=== PATIENT | female | born 1940 | race Caucasian/White ===

== ENCOUNTER → 2017-02-09 | Outpatient (CLI) | payer MEDICARE, BC ==
--- NOTE | 2017-02-09 09:22 | FL ---
EXAMINATION TYPE: FL barium swallow DATE OF EXAM: 02/09/2017 CLINICAL HISTORY: Dysphagia for one month with several episodes of vomiting recently. Patient feels f ood getting caught in upper thorax. TECHNIQUE: A double contrast esophagram is performed utilizing air and barium. A total of 5 seconds of fluoroscopic time was utilized during procedure. 26 spot images are saved to PACS station during procedure. COMPARISON: None FINDINGS: The esophagus shows satisfactory motility and emptying into the stomach. Some expected dimi nished motility on prone drinking is noted. No evidence of hiatal hernia noted. No suspicious intralu mariella mass or stricture with particular attention to the proximal esophagus at area of patient's conc pushpa. No significant gastroesophageal reflux was seen during real time performance of this study. IMPRESSION: No significant abnormality is seen to account for patient's symptoms.
== END | disposition home or self-care (01) ==
LOC: RADFLWHC 08:38
PROVIDERS: ATTEND Otolaryngology
DX: R13.10 Dysphagia, unspecified (principal)
CPT/HCPCS: 74220

== ENCOUNTER 2017-09-12 10:42 | Inpatient (IN) | payer MEDICARE, BC ==
--- NOTE | 2017-09-12 11:12 | ED ---
General Adult HPI - General Chief complaint: Syncope Stated complaint: SYNCOPE Time Seen by Provider: 09/12/17 10:50 Source: patient, RN notes reviewed Mode of arrival: wheelchair Limitations: no limitations - History of Present Illness Initial comments: This is a 77-year-old female who presents to the emergency department complaining of having had a syncopal episode. Patient states she had one on Tuesday as well. Patient states she has a peritoneal dialysis patient. Patient states she felt a little lightheaded and passed out both occasions. Patient denies any chest pain palpitations difficulty breathing shortness breath prior to the event. Patient now complains of a little left-sided chest pain. Patient states she also has a mild headache. Patient denies any nausea vomiting diarrhea. Patient denies anydisturbance or visual symptoms. Patient denies any recent fever chills or cough. - Related Data Home Medications Medication Instructions Recorded Confirmed Febuxostat [Uloric] 20 mg PO DAILY 01/20/16 09/12/17 Ferrous Sulfate [Iron (65 MG 325 mg PO DAILY 01/20/16 09/12/17 Elemental)] Gabapentin [Neurontin] 100 mg PO HS 01/20/16 09/12/17 Potassium Chloride [K-Tab ER] 10 meq PO BID 01/20/16 09/12/17 Torsemide [Demadex] 40 mg PO DAILY 01/20/16 09/12/17 Aspirin 325 mg PO DAILY 04/03/16 09/12/17 Atorvastatin Calcium [Lipitor] 10 mg PO DAILY 09/12/17 09/12/17 Calcitriol 0.5 mcg PO MO 09/12/17 09/12/17 Cinacalcet [Sensipar] 30 mg PO MOWEFR 09/12/17 09/12/17 Ipratropium-Albuterol Nebulize 3 ml INHALATION RT-TID 09/12/17 09/12/17 [Duoneb 0.5 mg-3 mg/3 ml Soln] Metoprolol Tartrate [Lopressor] 12.5 mg PO DAILY 09/12/17 09/12/17 Midodrine HCl [ProAmatine] 10 mg PO TID 09/12/17 09/12/17 Sevelamer [Renvela] 800 mg PO DAILY 09/12/17 09/12/17 Allergies Allergy/AdvReac Type Severity Reaction Status Date / Time gluten Allergy celiac Verified 09/12/17 11:43 disease wheat Allergy CELIAC Verified 09/12/17 11:43 DISEASE Review of Systems ROS Statement: Those systems with pertinent positive or pertinent negative responses have been documented in the HPI. ROS Other: All systems not noted in ROS Statement are negative. Past Medical History Past Medical History: Dialysis, Hyperlipidemia, Hypertension, Renal Disease, Syncope Additional Past Medical History / Comment(s): ONE KIDNEY ONLY FUNCTIONING AT 11 % NOT SURE WHICH ONE. peritoneal dialysis. CELIAC DISEASE History of Any Multi-Drug Resistant Organisms: None Reported Past Surgical History: Appendectomy, Cholecystectomy, Heart Catheterization, Hysterectomy, Joint Replacement, Orthopedic Surgery Additional Past Surgical History / Comment(s): NEUROMA BILAT FOOT, COLONOSCOPY, D & C. LT SHOULDER REPLACEMENT, BILAT TKA, BILAT PJ, LT PJ X 2, 04-02-16 HEART CATH W/STENT TO LAD, PT STATED HAS PNEVACCINE <5 YEARS AGO NOT SURE OF THE DATE Past Anesthesia/Blood Transfusion Reactions: No Reported Reaction Past Psychological History: No Psychological Hx Reported Smoking Status: Never smoker Past Alcohol Use History: None Reported Past Drug Use History: None Reported - Past Family History Mother Family Medical History: Myocardial Infarction ([place]) Additional Family Medical History / Comment(s): LIVED TO BE AGE 93 Father Additional Family Medical History / Comment(s): AT AGE 58 FROM CEREBRAL HEMORRAGE General Exam - General Exam Comments Initial Comments: GENERAL: Patient is well-developed and well-nourished. Patient is nontoxic and well- hydrated and is in mild distress. ENT: Neck is soft and supple. No significant lymphadenopathy is noted. Oropharynx is clear. Moist mucous membranes. Neck has full range of motion without eliciting any pain. EYES: The sclera were anicteric and conjunctiva were pink and moist. Extraocular movements were intact and pupils were equal round and reactive to light. Eyelids were unremarkable. PULMONARY: Unlabored respirations. Good breath sounds bilaterally. No audible rales rhonchi or wheezing was noted. CARDIOVASCULAR: There is a regular rate and rhythm without any murmurs gallops or rubs. ABDOMEN: Soft and nontender with normal bowel sounds. No palpable organomegaly was noted. There is no palpable pulsatile mass. SKIN: Skin is clear with no lesions or rashes and otherwise unremarkable. NEUROLOGIC: Patient is alert and oriented x3. Cranial nerves II through XII are grossly intact. Motor and sensory are also intact. Normal speech, volume and content. Symmetrical smile. MUSCULOSKELETAL: Normal extremities with adequate strength and full range of motion. No lower extremity swelling or edema. No calf tenderness. LYMPHATICS: No significant lymphadenopathy is noted PSYCHIATRIC: Normal psychiatric evaluation. Normal interpersonal interactions appears functionally intact in deals appropriately with others. No signs of depression. No signs of anxiety. Limitations: no limitations Course Vital Signs 09/12/17 09/12/17 10:53 12:33 Temperature 97.5 F L Pulse Rate 77 63 Respiratory 18 18 Rate Blood Pressure 114/58 132/64 O2 Sat by Pulse 98 100 Oximetry Medical Decision Making - Medical Decision Making EKG shows sinus rhythm at 61 bpm OH interval is 218 QRS is 80 QT interval 442 QTC is 444. Patient's EKG shows no ST segment elevation or depression or T wave abnormalities are noted. Patient's CT of the brain shows no acute abnormality. Chest x-ray shows no acute abnormality. I went back into reevaluate the patient patient stated that she feels at her baseline currently. - Lab Data Result diagrams: 09/12/17 11:19 09/12/17 11:19 Lab Results 09/12/17 09/12/17 09/12/17 Range/Units 11:19 11:19 11:19 WBC 10.3 (3.8-10.6) k/uL RBC 3.55 L (3.80-5.40) m/uL Hgb 11.0 L (11.4-16.0) gm/dL Hct 31.6 L (34.0-46.0) % MCV 88.9 (80.0-100.0) fL MCH 31.0 (25.0-35.0) pg MCHC 34.9 (31.0-37.0) g/dL RDW 14.5 (11.5-15.5) % Plt Count 283 (150-450) k/uL Neutrophils % 83 % Lymphocytes % 9 % Monocytes % 5 % Eosinophils % 3 % Basophils % 1 % Neutrophils # 8.5 H (1.3-7.7) k/uL Lymphocytes # 0.9 L (1.0-4.8) k/uL Monocytes # 0.5 (0-1.0) k/uL Eosinophils # 0.3 (0-0.7) k/uL Basophils # 0.1 (0-0.2) k/uL PT (9.0-12.0) sec INR (<1.2) APTT (22.0-30.0) sec Sodium 132 L (137-145) mmol/L Potassium 4.2 (3.5-5.1) mmol/L Chloride 91 L (98-107) mmol/L Carbon Dioxide 25 (22-30) mmol/L Anion Gap 16 mmol/L BUN 28 H (7-17) mg/dL Creatinine 5.71 H* (0.52-1.04) mg/dL Est GFR (CKD-EPI)AfAm 8 (>60 ml/min/1.73 sqM) Est GFR (CKD-EPI)NonAf 7 (>60 ml/min/1.73 sqM) Glucose 129 H (74-99) mg/dL Calcium 9.1 (8.4-10.2) mg/dL Magnesium 1.6 (1.6-2.3) mg/dL Total Bilirubin 0.4 (0.2-1.3) mg/dL AST 32 (14-36) U/L ALT 34 (9-52) U/L Alkaline Phosphatase 114 (38-126) U/L Total Creatine Kinase 64 (30-135) U/L CK-MB (CK-2) 0.8 (0.0-2.4) ng/mL CK-MB (CK-2) Rel Index 1.3 Troponin I <0.012 (0.000-0.034) ng/mL Total Protein 6.7 (6.3-8.2) g/dL Albumin 4.0 (3.5-5.0) g/dL 09/12/17 Range/Units 12:17 WBC (3.8-10.6) k/uL RBC (3.80-5.40) m/uL Hgb (11.4-16.0) gm/dL Hct (34.0-46.0) % MCV (80.0-100.0) fL MCH (25.0-35.0) pg MCHC (31.0-37.0) g/dL RDW (11.5-15.5) % Plt Count (150-450) k/uL Neutrophils % % Lymphocytes % % Monocytes % % Eosinophils % % Basophils % % Neutrophils # (1.3-7.7) k/uL Lymphocytes # (1.0-4.8) k/uL Monocytes # (0-1.0) k/uL Eosinophils # (0-0.7) k/uL Basophils # (0-0.2) k/uL PT 9.7 (9.0-12.0) sec INR 1.0 (<1.2) APTT 19.5 L (22.0-30.0) sec Sodium (137-145) mmol/L Potassium (3.5-5.1) mmol/L Chloride (98-107) mmol/L Carbon Dioxide (22-30) mmol/L Anion Gap mmol/L BUN (7-17) mg/dL Creatinine (0.52-1.04) mg/dL Est GFR (CKD-EPI)AfAm (>60 ml/min/1.73 sqM) Est GFR (CKD-EPI)NonAf (>60 ml/min/1.73 sqM) Glucose (74-99) mg/dL Calcium (8.4-10.2) mg/dL Magnesium (1.6-2.3) mg/dL Total Bilirubin (0.2-1.3) mg/dL AST (14-36) U/L ALT (9-52) U/L Alkaline Phosphatase (38-126) U/L Total Creatine Kinase (30-135) U/L CK-MB (CK-2) (0.0-2.4) ng/mL CK-MB (CK-2) Rel Index Troponin I (0.000-0.034) ng/mL Total Protein (6.3-8.2) g/dL Albumin (3.5-5.0) g/dL Disposition Clinical Impression: Syncope Disposition: ADMITTED IP TO THIS HOSP Referrals: Doni Irizarry MD [Primary Care Provider] - 1-2 days Time of Disposition: 13:08
[2017-09-12] MEDS ORDERED: NITROGLYCERIN OINT 1 INCH/GM PACKET TOPICAL STA (11:29)
[2017-09-12] MEDS ORDERED: ASPIRIN 81 MG PO STA (11:29)
[2017-09-12 11:31] LABS: Basophils # (A) 0.1 k/uL (0-0.2); Basophils % (A) 1 %; Eosinophils # (A) 0.3 k/uL (0-0.7); Eosinophils % (A) 3 %; HCT 31.6 % (34.0-46.0); Lymphocytes # (A) 0.9 k/uL (1.0-4.8); Lymphocytes % (A) 9 %; MCHC 34.9 g/dL (31.0-37.0); MCV 88.9 fL (80.0-100.0); Mean Platelet Volume 7.4; Monocytes # (A) 0.5 k/uL (0-1.0); Monocytes % (A) 5 %; Neutrophils # (A) 8.5 k/uL (1.3-7.7); Neutrophils % (A) 83 %; Platelet Count 283 k/uL (150-450); RBC 3.55 m/uL (3.80-5.40); RDW 14.5 % (11.5-15.5); WBC 10.3 k/uL (3.8-10.6)
[2017-09-12 11:41] LABS: Calcium 9.1 mg/dL (8.4-10.2); Magnesium 1.6 mg/dL (1.6-2.3); Potassium 4.2 mmol/L (3.5-5.1); Total Bilirubin 0.4 mg/dL (0.2-1.3); Total Protein 6.7 g/dL (6.3-8.2)
--- NOTE | 2017-09-12 11:46 | XR ---
EXAMINATION TYPE: XR chest 2V DATE OF EXAM: 09/12/2017 COMPARISON: NONE HISTORY: Chest pain and syncope. TECHNIQUE: Frontal and lateral views of the chest are obtained. FINDINGS: There is lateral left basilar opacity on frontal view less well seen on lateral view. Righ t lung is clear. The cardiac silhouette size is upper limits of normal. Metallic anchor left humeral head is present. There is high riding humeral head suggesting chronic rotator cuff tear. AC joint sep aration is present. IMPRESSION: Possible developing lateral left basilar atelectasis and/or infiltrate.
--- NOTE | 2017-09-12 11:57 | CT ---
EXAMINATION TYPE: CT brain wo con DATE OF EXAM: 09/12/2017 COMPARISON: NONE HISTORY: Dizziness. CT DLP: 1121 mGycm Automated exposure control for dose reduction was used. TECHNIQUE: CT scan of the head is performed without contrast. FINDINGS: Incidental note is made of a cavum veli interpositi. There is no acute intracranial hemorr russell or midline shift identified. There is diffuse ventricular and sulcal prominence consistent with diffuse age-related cerebral atrophy. No suspicious extra-axial fluid collection. There is low-attenu ation in the periventricular white matter consistent with chronic small vessel ischemic change. The globes are intact and the visualized sinuses are clear. IMPRESSION: 1. No acute intracranial process. 2. Diffuse age-related cerebral atrophy and chronic small vessel ischemic change, likely on the basis of microangiopathy.
[2017-09-12 12:00] LABS: Creatine Kinase 64 U/L (30-135)
[2017-09-12 12:11] LABS: Creatine Kinase MB 0.8 ng/mL (0.0-2.4); Troponin I <0.012 ng/mL (0.000-0.034)
[2017-09-12 12:41] LABS: Prothrombin Time 9.7 sec (9.0-12.0)
[2017-09-12 12:47] LABS: Partial Thromboplastin Time 19.5 sec (22.0-30.0)
[2017-09-12] MEDS ORDERED: NITROGLYCERIN SL TABS 0.4 MG TAB SUBLINGUAL PRN (13:16)
--- NOTE | 2017-09-12 15:22 | P.HPIM ---
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 and while walking using her walker she didn't feel good and needed to sit down and then passed out for about 5 minutes witnessed by her doctor at bedside which she says she didn't have any seizure-like activity, and she woke up after 5 minutes immediately with no residual confusion , patient denies prodromal symptoms for me, no chest pain no sweating no lightheadedness Patient had 2 episodes in this week and she has another 3 episodes about 4 months ago but she hasn't been evaluated for the Patient had episodic diarrhea yesterday, but thus related to her celiac disease as per patient and family Review of Systems 14 point systemic review were negative excess was mentioned in HPI Past Medical History Past Medical History: Coronary Artery Disease (CAD), Dialysis, Hyperlipidemia, Hypertension, Renal Disease, Syncope Additional Past Medical History / Comment(s): ONE KIDNEY ONLY FUNCTIONING AT 11 % NOT SURE WHICH ONE/peritoneal dialysis one manual around 3-5pm and one cycle at night, anemia, celiac dx, L ear canal small-slightly [place], wears hearing aide in R ear. History of Any Multi-Drug Resistant Organisms: None Reported Past Surgical History: Appendectomy, Cholecystectomy, Heart Catheterization With Stent, Hysterectomy, Joint Replacement, Orthopedic Surgery Additional Past Surgical History / Comment(s): 04/02/16 PCI with stent, bilateral feet neuromas removed, L total shoulder, bilateral total knees, bilateral total hips with R side done twice, L myringotomy/tube, D&C, colonoscopy. Past Anesthesia/Blood Transfusion Reactions: Postoperative Nausea & Vomiting ( PONV) Additional Past Anesthesia/Blood Transfusion Reaction / Comment(s): PONV once with a hip surgery. Pt has received blood in the past and once in 1977 she had a transfusion reaction with a fever and was packed in ice. Date of Last Stent Placement:: 03/27/16 Smoking Status: Never smoker - Past Family History Mother Family Medical History: Myocardial Infarction ([place]) Additional Family Medical History / Comment(s): LIVED TO BE AGE 93 Father Family Medical History: CVA/TIA Additional Family Medical History / Comment(s): AT AGE 52 FROM CEREBRAL HEMORRhAGE Medications and Allergies Home Medications Medication Instructions Recorded Confirmed Type Febuxostat [Uloric] 20 mg PO DAILY 01/20/16 09/12/17 History Ferrous Sulfate [Iron (65 MG 325 mg PO DAILY 01/20/16 09/12/17 History Elemental)] Gabapentin [Neurontin] 100 mg PO HS 01/20/16 09/12/17 History Potassium Chloride [K-Tab ER] 10 meq PO BID 01/20/16 09/12/17 History Torsemide [Demadex] 40 mg PO DAILY 01/20/16 09/12/17 History Aspirin 325 mg PO DAILY 04/03/16 09/12/17 History Atorvastatin Calcium [Lipitor] 10 mg PO DAILY 09/12/17 09/12/17 History Calcitriol 0.5 mcg PO MO 09/12/17 09/12/17 History Cinacalcet [Sensipar] 30 mg PO MOWEFR 09/12/17 09/12/17 History Ipratropium-Albuterol Nebulize 3 ml INHALATION RT-TID 09/12/17 09/12/17 History [Duoneb 0.5 mg-3 mg/3 ml Soln] Metoprolol Tartrate [Lopressor] 12.5 mg PO DAILY 09/12/17 09/12/17 History Midodrine HCl [ProAmatine] 10 mg PO TID 09/12/17 09/12/17 History Sevelamer [Renvela] 800 mg PO DAILY 09/12/17 09/12/17 History Allergies Allergy/AdvReac Type Severity Reaction Status Date / Time gluten Allergy celiac Verified 09/12/17 11:43 disease wheat Allergy CELIAC Verified 09/12/17 11:43 DISEASE Physical Exam Vitals: Vital Signs Temp Pulse Resp BP Pulse Ox 09/12/17 14:21 61 18 192/88 100 09/12/17 12:33 63 18 132/64 100 09/12/17 10:53 97.5 F L 77 18 114/58 98 Intake and Output 09/12/17 09/12/17 09/12/17 06:59 14:59 22:59 Other: Weight 77.564 kg Constitutional: No acute distress, conversant, pleasant Eyes: Anicteric sclerae, moist conjunctiva, no lid-lag PERRLA ENMT: NC/AT Oropharynx clear, no erythema, exudates Neck: Supple, FROM, no masses, or JVD No carotid bruits No thyromegaly Lungs: Clear to auscultation Clear to percussion Normal respiratory effort, no accessory muscle use Cardiovascular: Heart regular in rate and rhythm, No murmurs, gallops, or rubs No peripheral edema Abdominal: Soft Nontender, no guarding, rebound or rigidity Abdomen moving with respiration Normoactive bowel sounds No hepatomegaly, No splenomegaly No palpable mass No abdominal wall hernia noted Skin: Normal temperature, tone, texture, turgor No induration No subcutaneous nodules No rash, lesions No ulcers Extremities: No digital cyanosis No clubbing Pedal pulses intact and symmetrical Radial pulses intact and symmetrical Normal gait and station No calf tenderness Psychiatric: Alert and oriented to person, place and time Appropriate affect Intact judgement Neuro: Muscles Strength 5/5 in all 4 extremities Sensation to light touch grossly present throughout Cranial nerves II-XII grossly intact No focal sensory deficits Results CBC & Chem 7: 09/12/17 11:19 09/12/17 11:19 Labs: Abnormal Lab Results - Last 24 Hours (Table) 09/12/17 09/12/17 09/12/17 Range/Units 11:19 11:19 12:17 RBC 3.55 L (3.80-5.40) m/uL Hgb 11.0 L (11.4-16.0) gm/dL Hct 31.6 L (34.0-46.0) % Neutrophils # 8.5 H (1.3-7.7) k/uL Lymphocytes # 0.9 L (1.0-4.8) k/uL APTT 19.5 L (22.0-30.0) sec Sodium 132 L (137-145) mmol/L Chloride 91 L (98-107) mmol/L BUN 28 H (7-17) mg/dL Creatinine 5.71 H* (0.52-1.04) mg/dL Glucose 129 H (74-99) mg/dL Thrombosis Risk Factor Assmnt - Choose All That Apply Any of the Below Risk Factors Present?: Yes Each Factor Represents 1 point: Obesity (BMI >25) Other Risk Factors: Yes Each Risk Factor Represents 3 Points: Age 75 years or older Other congenital or acquired thrombophilia - If yes, enter type in comment: No Thrombosis Risk Factor Assessment Total Risk Factor Score: 4 Thrombosis Risk Factor Assessment Level: Moderate Risk Assessment and Plan Assessment: Syncope End-stage renal disease, on dialysis CAD Hypertension Hyperlipidemia celiac disease Plan: This is a pleasant lady 77 years old end-stage renal dialysis comes with recurrent syncopal episodes, withprodromal symptoms We will do serial troponins, admitted to telemetry, echocardiogram and ask for Cardiologic evaluation in view of her history of cardiac disease Ask for PT evaluation Prognosis is guarded given her various comorbidity and advanced age
[2017-09-12] MEDS: hydrALAZINE HCL 25 MG TAB PO SCH ×2 (17:09→20:36)
[2017-09-12 17:38] LABS: Creatine Kinase 61 U/L (30-135)
[2017-09-12 17:51] LABS: Creatine Kinase MB 0.6 ng/mL (0.0-2.4); Troponin I <0.012 ng/mL (0.000-0.034)
[2017-09-12] MEDS ORDERED: CALCITRIOL 0.25 MCG CAP PO SCH (18:45)
[2017-09-12] MEDS: CINACALCET 30 MG TAB PO SCH (20:35)
[2017-09-12] MEDS: GABAPENTIN 100 MG CAP PO SCH (20:36)
[2017-09-12] MEDS ORDERED: DIALYSIS (PERIT 1.5%) 2,000 ML 30 G/2,000 ML BAG INTRAPERIT SCH (21:00)
[2017-09-12] MEDS: IPRATROPIUM-ALBUTEROL 3 ML NEB INHALATION SCH (23:41)
[2017-09-13 00:08] LABS: Cholesterol 161 mg/dL (<200); HDL Cholesterol 33 mg/dL (40-60); Triglycerides 473 mg/dL (<150)
[2017-09-13 00:17] LABS: Creatine Kinase 61 U/L (30-135)
[2017-09-13 00:30] LABS: Creatine Kinase MB 0.5 ng/mL (0.0-2.4); Troponin I <0.012 ng/mL (0.000-0.034)
[2017-09-13] MEDS ORDERED: DIALYSIS (PERIT 1.5%) 2,000 ML 30 G/2,000 ML BAG INTRAPERIT SCH ×2 (03:00)
[2017-09-13] MEDS: MIDODRINE 5 MG TAB PO SCH ×3 (06:44→18:09)
[2017-09-13] MEDS: IPRATROPIUM-ALBUTEROL 3 ML NEB INHALATION SCH ×3 (07:59→19:37)
[2017-09-13] MEDS ORDERED: ASPIRIN 325 MG TAB PO SCH (09:00)
[2017-09-13] MEDS: DIALYSIS (PERIT 2.5%) 2,000 ML 50 G/2,000 ML BAG INTRAPERIT SCH ×2 (09:33→21:25)
[2017-09-13] MEDS: hydrALAZINE HCL 25 MG TAB PO SCH (09:41)
[2017-09-13] MEDS: TORSEMIDE 20 MG TAB PO SCH (09:42)
[2017-09-13] MEDS: METOPROLOL TARTRATE 12.5 MG TAB PO SCH (09:42)
[2017-09-13] MEDS: FERROUS SULFATE 325 MG TAB PO SCH (09:42)
[2017-09-13] MEDS: ASPIRIN 325 MG TAB PO SCH (09:42)
[2017-09-13] MEDS: ATORVASTATIN 10 MG TAB PO SCH (09:42)
[2017-09-13] MEDS: ALLOPURINOL 100 MG TAB PO SCH (09:42)
[2017-09-13] MEDS: SEVELAMER 800 MG TAB PO SCH (09:44)
--- NOTE | 2017-09-13 11:14 | ECHOF ---
Referral Reason:syncope MEASUREMENTS -------- HEIGHT: 170.2 cm WEIGHT: 77.6 kg BP: 192/88 IVSd: 1.3 cm (0.6 - 1.1) LVIDd: 3.6 cm (3.9 - 5.3) LVPWd: 1.6 cm (0.6 - 1.1) IVSs: 2.0 cm LVIDs: 1.7 cm LVPWs: 1.9 cm Ao Diam: 3.6 cm (2.0 - 3.7) AV Cusp: 2.2 cm (1.5 - 2.6) LA Diam: 2.8 cm (2.7 - 3.8) MV EXCURSION: 13.536 mm (> 18.000) MV EF SLOPE: 32 mm/s (70 - 150) EPSS: 0.5 cm MV E Huey: 0.67 m/s MV DecT: 232 ms MV A Huey: 1.01 m/s MV E/A Ratio: 0.66 AR PHT: 643 ms RAP: 5.00 mmHg RVSP: 15.95 mmHg FINDINGS -------- Sinus rhythm. This was a technically good study. The left ventricular size is normal. There is moderate concentric left ventricular hypertrophy. O verall left ventricular systolic function is normal with, an EF between 55 - 60 %. The right ventricle is normal in size and function. The left atrium is normal in size. The right atrium is normal in size. Aortic valve is trileaflet and is mildly thickened. The mitral valve leaflets are mildly thickened. Mild mitral regurgitation is present. Mild tricuspid regurgitation present. The right ventricular systolic pressure, as measured by Doppl er, is 15.95mmHg. Pulmonic valve appears structurally normal. The aortic root size is normal. The pericardium is normal. CONCLUSIONS -------- 1. Sinus rhythm. 2. This was a technically good study. 3. The left ventricular size is normal. 4. There is moderate concentric left ventricular hypertrophy. 5. Overall left ventricular systolic function is normal with, an EF between 55 - 60 %. 6. The right ventricle is normal in size and function. 7. The left atrium is normal in size. 8. The right atrium is normal in size. 9. Aortic valve is trileaflet and is mildly thickened. 10. The mitral valve leaflets are mildly thickened. 11. Mild mitral regurgitation is present. 12. Mild tricuspid regurgitation present. 13. The right ventricular systolic pressure, as measured by Doppler, is 15.95mmHg. 14. Pulmonic valve appears structurally normal. 15. The aortic root size is normal. 16. The pericardium is normal. QUALITATIVE EXECUTIVE RESEARCHER: Rosalina Collado RDCS
--- NOTE | 2017-09-13 13:40 | P.PN ---
Subjective Patient is seen and examined by me at bedside Known new complaints Patient is still complains from some dizziness especially when she gets out of the patient No chest pain, dyspnea, no change in urine or bowel habits, no fever Objective - Vital Signs Vital signs: Vital Signs Temp 97.8 F 09/13/17 08:00 Pulse 88 09/13/17 08:10 Resp 18 09/13/17 08:00 BP 126/66 09/13/17 08:00 Pulse Ox 96 09/13/17 08:00 Intake & Output 09/12/17 09/13/17 09/13/17 18:59 06:59 18:59 Intake Total 240 Balance 240 Weight 77.564 kg 78.5 kg Intake: Oral 240 Other: Voiding Method Toilet Toilet # Voids 0 - Exam Constitutional: No acute distress, conversant, pleasant Eyes: Anicteric sclerae, moist conjunctiva, no lid-lag PERRLA ENMT: NC/AT Oropharynx clear, no erythema, exudates Neck: Supple, FROM, no masses, or JVD No carotid bruits No thyromegaly Lungs: Clear to auscultation Clear to percussion Normal respiratory effort, no accessory muscle use Cardiovascular: Heart regular in rate and rhythm, No murmurs, gallops, or rubs No peripheral edema Abdominal: Soft Nontender, no guarding, rebound or rigidity Abdomen moving with respiration Normoactive bowel sounds No hepatomegaly, No splenomegaly No palpable mass No abdominal wall hernia noted Skin: Normal temperature, tone, texture, turgor No induration No subcutaneous nodules No rash, lesions No ulcers Extremities: No digital cyanosis No clubbing Pedal pulses intact and symmetrical Radial pulses intact and symmetrical Normal gait and station No calf tenderness Psychiatric: Alert and oriented to person, place and time Appropriate affect Intact judgement Neuro: Muscles Strength 5/5 in all 4 extremities Sensation to light touch grossly present throughout Cranial nerves II-XII grossly intact No focal sensory deficits - Labs CBC & Chem 7: 09/12/17 11:19 09/12/17 11:19 Labs: Abnormal Lab Results - Last 24 Hours (Table) 09/12/17 Range/Units 23:45 Triglycerides 473 H (<150) mg/dL HDL Cholesterol 33 L (40-60) mg/dL Assessment and Plan Assessment: Syncope End-stage renal disease, on dialysis CAD Hypertension Hyperlipidemia celiac disease Plan: This is a pleasant lady 77 years old end-stage renal dialysis comes with recurrent syncopal episodes, without prodromal symptoms We will do serial troponins, admitted to telemetry, echocardiogram and ask for Cardiologic evaluation in view of her history of cardiac disease CT head is negative CKD, advanced stage, pipe assembly worker consult Ask for PT evaluation Prognosis is guarded given her various comorbidity and advanced age
[2017-09-13] MEDS: DIALYSIS (PERIT 1.5%) 2,000 ML 30 G/2,000 ML BAG INTRAPERIT SCH (15:56)
--- NOTE | 2017-09-13 16:30 | CONS ---
CONSULTATION REASON FOR CONSULT: End-stage renal disease. HISTORY OF PRESENT ILLNESS: The patient is a 77-year-old female with end-stage renal disease, on peritoneal dialysis. She was admitted to the hospital with history of syncope. According to her daughter, she has passed out about 3 times at home. The patient was coming to the dialysis unit yesterday and she passed out while trying to get into the car. Her blood pressure was not low when patient was seen at the dialysis unit, but she looks weak and was therefore advised to go to the hospital. The patient denies any chest pain or palpitations. Her daughter has checked her blood pressure when she passed out at home and there was no documentation of hypotension. PAST MEDICAL HISTORY: End-stage renal disease, CKD mineral bone disorder, hyperlipidemia, hypertension, coronary artery disease, hearing loss. PAST SURGICAL HISTORY: Appendectomy, cholecystectomy, cardiac catheterization, coronary stent, hysterectomy, cataract surgery, PD catheter placement, colonoscopy, D and C, ear surgery, bilateral hip arthroplasty, right leg being done twice. MEDICATIONS: Medications at home prior to admission included: Iron, Uloric, Neurontin, potassium, Demadex, aspirin, Lipitor, Sensipar, Midodrine, Metoprolol. ALLERGIES: GLUTEN. SOCIAL HISTORY: Negative for smoking and drugs abuse or alcohol abuse. PHYSICAL EXAMINATION: Patient is currently comfortable, awake, alert, oriented x3. She is not in any acute distress. Blood pressure is 126/66, heart rate 85 per minute. Patient is afebrile. Examination of the heart S1 and S2. Examination of the lungs bilateral breath sounds are heard. Abdomen is soft, nontender. Examination of lower extremities shows trace edema bilaterally. DIRECTOR OF EMPLOYER SERVICES exam is grossly intact. LAB: Show sodium 132, potassium 4.2, serum creatinine 5.7, hemoglobin 11.0. The magnesium is 1.6. ASSESSMENT: 1. End-stage renal disease, on peritoneal dialysis. Will continue current PD exchanges. The patient is alternating 2.5% solution with 1.5% solution. 2. Hypotension maintained on midodrine. I will discontinue the hydralazine for now. The patient is maintained on very low dose of metoprolol as her heart rate was staying on the high side as outpatient. 3. Chronic kidney disease, mineral bone disorder, currently on Sensipar and calcitriol, which we will continue. The patient's recent PTH was high and therefore I will increase the Calcitriol to three times a week. 4. Syncope, etiology unclear. It is does not seem to be related to hypotension. Cardiology workup in progress. PLAN: 1. DC hydralazine. 2. Continue with midodrine. 3. Increase Rocaltrol. 4. Repeat labs in a.m. 5. Continue current PD exchange. 6. Thank you for this consultation. We will continue to follow the patient with you during her hospitalization. MMODL / IJN: [id number] /
[2017-09-13] MEDS: GABAPENTIN 100 MG CAP PO SCH (22:06)
[2017-09-14] MEDS: DIALYSIS (PERIT 1.5%) 2,000 ML 30 G/2,000 ML BAG INTRAPERIT SCH ×2 (03:30→16:26)
[2017-09-14 03:48] LABS: Glucose,Whole Blood 136 mg/dL (75-99)
[2017-09-14] MEDS: IPRATROPIUM-ALBUTEROL 3 ML NEB INHALATION SCH ×3 (07:16→20:11)
[2017-09-14] MEDS: MIDODRINE 5 MG TAB PO SCH ×3 (09:38→17:57)
[2017-09-14] MEDS: ALLOPURINOL 100 MG TAB PO SCH (09:40)
[2017-09-14] MEDS: ASPIRIN 325 MG TAB PO SCH (09:40)
[2017-09-14] MEDS: ATORVASTATIN 10 MG TAB PO SCH (09:41)
[2017-09-14] MEDS: METOPROLOL TARTRATE 12.5 MG TAB PO SCH (09:41)
[2017-09-14] MEDS: FERROUS SULFATE 325 MG TAB PO SCH (09:41)
[2017-09-14] MEDS: SEVELAMER 800 MG TAB PO SCH (09:41)
[2017-09-14] MEDS: TORSEMIDE 20 MG TAB PO SCH (09:41)
[2017-09-14] MEDS: DIALYSIS (PERIT 2.5%) 2,000 ML 50 G/2,000 ML BAG INTRAPERIT SCH ×2 (10:14→21:14)
--- NOTE | 2017-09-14 14:38 | CONS ---
CONSULTATION DATE OF CONSULTATION: 09/13/2017 This patient's medical record reviewed. Mrs. Londono is a 77-year-old female, who is seen for cardiac evaluation and history of syncope. Patient has a history of end-stage renal disease for which she is on peritoneal dialysis. According to the daughter, patient passed out about 3 times at home. Patient was coming to the dialysis unit yesterday and while she was walking with a walker, she almost passed out. Patient was subsequently sent to the emergency room. Since admission in the hospital, patient has been noticed to have a hypertension. Also orthostatic hypotension. Patient denies any definite history of heart fluttering or palpitations, no significant arrhythmias are noted since admission. There is no prior history of myocardial infarction. PAST MEDICAL HISTORY: Includes history of end-stage renal disease on peritoneal dialysis, hypertension, hyperlipidemia, coronary artery disease, hearing loss, appendicectomy, cholecystectomy, prior history of stent placement, hysterectomy and cataract surgery. HOME MEDICATIONS: Included Demadex 40 mg daily, Renvela, midodrine 10 mg t.i.d., Neurontin, Uloric, Sensipar and Lipitor. PHYSICAL EXAMINATION: At present reveals a 77-year-old female, who does not appear to be in any acute distress. Patient's orthostatic blood pressures are reviewed and patient does have a significant drop in the blood pressure on standing position. Patient's hydralazine was discontinued. HEENT examination is negative. Neck is supple. There is no increase in jugular venous pressure. Both the carotid pulses are felt. There is no bruit. Chest is symmetrical. Heart, the PMI is not felt. First and second heart sounds are normal. There is no evidence of any murmur. Lungs are clinically clear to auscultation and percussion. Abdomen is negative. Extremities reveal pulsations are 2+. Patient's left ventricular systolic function is normal by echocardiogram. There is no evidence of any pulmonary hypertension. No dysrhythmias are noted. FINAL IMPRESSION: Recurrent episodes of syncope most likely secondary to orthostatic hypotension. No dysrhythmias are noted. We will increase the dose of midodrine to 15 mg 3 times a day and maybe the Demadex can be decreased. MMODL / IJN: [id number] /
--- NOTE | 2017-09-14 14:45 | PN ---
PROGRESS NOTE DATE OF SERVICE: 09/14/2017 Patient has been doing fairly well. She felt slightly dizzy when she went to the bathroom. She did had evidence of orthostatic hypotension today. First and second heart sounds are normal. Lungs are clinically clear to auscultation and percussion. We will increase the dose of midodrine to 10 mg 3 times a day, and if it is okay with Dr. Powell, we can decrease the dose of Demadex to 20 mg. MMODL / IJN: [id number] /
--- NOTE | 2017-09-14 16:01 | P.PN ---
Subjective Patient is seen and examined by me at bedside she was positive today for postural hypotension and her BP droped from 154 to 78 on standing , she was not taking her midodrine or family were not giving it to her when they were seeing she has High BP eg 154, cardiology consult is appreciated , increase midodrine to 15 mg TID Patient is still complains from some dizziness especially when she gets out of the patient No chest pain, dyspnea, no change in urine or bowel habits, no fever Objective - Vital Signs Vital signs: Vital Signs Temp 98.2 F 09/14/17 08:00 Pulse 103 H 09/14/17 13:29 Resp 18 09/14/17 12:00 BP 153/75 09/14/17 12:00 Pulse Ox 97 09/14/17 12:00 Intake & Output 09/13/17 09/14/17 09/14/17 18:59 06:59 18:59 Intake Total 720 250 720 Balance 720 250 720 Weight 78.5 kg Intake: IV 10 0.9 10 Oral 720 240 720 Other: Voiding Method Toilet Toilet Toilet # Voids 1 2 - Exam Constitutional: No acute distress, conversant, pleasant Eyes: Anicteric sclerae, moist conjunctiva, no lid-lag PERRLA ENMT: NC/AT Oropharynx clear, no erythema, exudates Neck: Supple, FROM, no masses, or JVD No carotid bruits No thyromegaly Lungs: Clear to auscultation Clear to percussion Normal respiratory effort, no accessory muscle use Cardiovascular: Heart regular in rate and rhythm, No murmurs, gallops, or rubs No peripheral edema Abdominal: Soft Nontender, no guarding, rebound or rigidity Abdomen moving with respiration Normoactive bowel sounds No hepatomegaly, No splenomegaly No palpable mass No abdominal wall hernia noted Skin: Normal temperature, tone, texture, turgor No induration No subcutaneous nodules No rash, lesions No ulcers Extremities: No digital cyanosis No clubbing Pedal pulses intact and symmetrical Radial pulses intact and symmetrical Normal gait and station No calf tenderness Psychiatric: Alert and oriented to person, place and time Appropriate affect Intact judgement Neuro: Muscles Strength 5/5 in all 4 extremities Sensation to light touch grossly present throughout Cranial nerves II-XII grossly intact No focal sensory deficits - Labs CBC & Chem 7: 09/12/17 11:19 09/12/17 11:19 Labs: Abnormal Lab Results - Last 24 Hours (Table) 09/14/17 Range/Units 03:46 POC Glucose (mg/dL) 136 H (75-99) mg/dL Assessment and Plan Assessment: Syncope End-stage renal disease, on dialysis CAD Hypertension Hyperlipidemia celiac disease Plan: This is a pleasant lady 77 years old end-stage renal dialysis comes with recurrent syncopal episodes, without prodromal symptoms We will do serial troponins, admitted to telemetry, echocardiogram and ask for Cardiologic evaluation in view of her history of cardiac disease CT head is negative CKD, advanced stage, chronometer tester consult increase midodrine to 15 mg TID Ask for PT evaluation: pt could not tolerate it , f/u Prognosis is guarded given her various comorbidity and advanced age
[2017-09-14] MEDS: CINACALCET 30 MG TAB PO SCH (17:58)
--- NOTE | 2017-09-14 18:33 | PN ---
PROGRESS NOTE Patient is seen for followup for end-stage renal disease. She remains on peritoneal dialysis with 2.5% solution alternating with 1.5% solution. She is currently awaiting Cardiology input regarding the episodes of syncope. EXAMINATION: Today, blood pressure was 125/62, heart rate of 111 per minute. Patient is afebrile. Examination of the heart S1, S2. Examination of the lungs bilateral breath sounds are heard. Abdomen is soft, nontender. Examination of lower extremities shows no significant edema. MANAGER OF OPERATIONS exam is grossly intact. ASSESSMENT: 1. End-stage renal disease, on peritoneal dialysis. Continue current PD exchanges. I will decrease the UF and switch all exchanges to 1.5% solution. 2. Orthostatic hypotension maintained on midodrine. 3. Mineral bone disorder maintained on Rocaltrol. I will increase it to 5 times a week as recent PTH was elevated as outpatient. 4. Dyslipidemia. PLAN: Increase the Rocaltrol to 5 times a week and continue off of hydralazine in view off the orthostatic hypotension. Continue with midodrine. No obvious dysrhythmias identified by Cardiology. The patient could technically be discharged and she will follow up as outpatient. MMODL / IJN: [id number] /
[2017-09-14] MEDS: GABAPENTIN 100 MG CAP PO SCH (20:32)
[2017-09-15] MEDS: DIALYSIS (PERIT 1.5%) 2,000 ML 30 G/2,000 ML BAG INTRAPERIT SCH ×2 (03:09→16:24)
[2017-09-15] MEDS: MIDODRINE 5 MG TAB PO SCH ×3 (06:30→17:24)
[2017-09-15] MEDS: IPRATROPIUM-ALBUTEROL 3 ML NEB INHALATION SCH ×2 (08:29→13:40)
[2017-09-15] MEDS: ALLOPURINOL 100 MG TAB PO SCH (08:51)
[2017-09-15] MEDS: ASPIRIN 325 MG TAB PO SCH (08:52)
[2017-09-15] MEDS: ATORVASTATIN 10 MG TAB PO SCH (08:52)
[2017-09-15] MEDS: FERROUS SULFATE 325 MG TAB PO SCH (08:52)
[2017-09-15] MEDS: SEVELAMER 800 MG TAB PO SCH (08:53)
[2017-09-15] MEDS: TORSEMIDE 20 MG TAB PO SCH (08:53)
[2017-09-15] MEDS: METOPROLOL TARTRATE 12.5 MG TAB PO SCH (08:53)
[2017-09-15] MEDS ORDERED: CALCITRIOL 0.25 MCG CAP PO SCH (09:00)
[2017-09-15] MEDS: DIALYSIS (PERIT 2.5%) 2,000 ML 50 G/2,000 ML BAG INTRAPERIT SCH (09:10)
[2017-09-15 10:47] VITALS: RESP 16
--- NOTE | 2017-09-15 11:13 | P.PN ---
Subjective Patient is seen in follow-up for her incisional disease. She is maintained on peritoneal dialysis. Patient was noted to have positive orthostatic vital signs and is currently maintained on midodrine. This morning her standing blood pressure was 116/57. Still gets dizzy intermittently. Oral intake is good. Tolerating PD well. No abdominal pain. Vital signs are stable. General: The patient appeared well nourished and normally developed. HEENT: Head exam is unremarkable. Neck is without jugular venous distension. LUNGS: Lungs are clear to auscultation and percussion. Breath sounds decreased. HEART: Rate and Rhythm are regular. First and second heart sounds normal. No murmurs, rubs or gallops. ABDOMEN: Abdominal exam reveals normal bowel sounds. Non-tender and non- distended. No evidence of peritonitis. EXTREMITITES: No clubbing, cyanosis, or edema. Objective - Vital Signs Vital signs: Vital Signs Temp 96.9 F L 09/15/17 10:48 Pulse 92 09/15/17 10:48 Resp 16 09/15/17 10:48 BP 135/70 09/15/17 10:48 Pulse Ox 93 L 09/15/17 10:48 Intake & Output 09/14/17 09/15/17 09/15/17 18:59 06:59 18:59 Intake Total 720 Output Total 250 400 Balance 720 -250 -400 Weight 80 kg 80 kg Intake: Oral 720 Output: Urine 250 400 Other: Voiding Method Toilet Toilet Toilet # Voids 3 1 - Labs CBC & Chem 7: 09/12/17 11:19 09/12/17 11:19 Assessment and Plan Plan: Assessment: #1. End-stage renal disease maintained on peritoneal dialysis. #2. Orthostatic hypotension maintained on midodrine. #3. Chronic kidney disease mineral bone disease maintained on Rocaltrol and Sensipar. Also on Renvela. Plan: Maintain midodrine. Stable to be discharged home from nephrology standpoint and to follow-up outpatient. She can continue with all 1.5% exchanges for now in view of hypotension.
[2017-09-15] MEDS ORDERED: SENNOSIDES 8.6 MG TAB PO PRN (13:56)
[2017-09-15 14:21] LABS: Basophils % (A) 1 %; Eosinophils # (A) 0.4 k/uL (0-0.7); Eosinophils % (A) 5 %; HCT 25.7 % (34.0-46.0); Lymphocytes # (A) 1.1 k/uL (1.0-4.8); Lymphocytes % (A) 13 %; MCH 31.2 pg (25.0-35.0); MCV 89.1 fL (80.0-100.0); Mean Platelet Volume 7.5; Monocytes # (A) 0.6 k/uL (0-1.0); Monocytes % (A) 7 %; Neutrophils # (A) 6.4 k/uL (1.3-7.7); Neutrophils % (A) 73 %; Platelet Count 231 k/uL (150-450); RBC 2.89 m/uL (3.80-5.40); RDW 14.6 % (11.5-15.5); WBC 8.7 k/uL (3.8-10.6)
[2017-09-15 14:32] LABS: Calcium 7.8 mg/dL (8.4-10.2); Potassium 3.5 mmol/L (3.5-5.1)
--- NOTE | 2017-09-15 14:46 | P.PN ---
Subjective Progress Note Date: 09/15/17 This is a pleasant 77-year-old female who presented to the hospital following a syncopal episode. She was seen in consultation by Dr. VC Montgomery. Midodrine was increased yesterday, today she has no documented orthostatics and her dizziness is significantly improved. We will decrease her dose of Demadex. Echo cardiac gram with Doppler study was performed which revealed an ejection fraction of 55-60%. Blood pressure 135/70 lying, 116/50 sitting, 122/60 standing. Objective - Vital Signs Vital signs: Vital Signs Temp 97 F L 09/15/17 12:00 Pulse 92 09/15/17 13:50 Resp 16 09/15/17 12:00 BP 123/64 09/15/17 12:00 Pulse Ox 97 09/15/17 12:00 Intake & Output 09/14/17 09/15/17 09/15/17 18:59 06:59 18:59 Intake Total 720 240 Output Total 250 400 Balance 720 -250 -160 Weight 80 kg 80 kg Intake: Oral 720 240 Output: Urine 250 400 Other: Voiding Method Toilet Toilet Toilet # Voids 3 1 - Exam PHYSICAL EXAMINATION: HEENT: 77-year-old female who does not appear to be in any acute distress HEART EXAMINATION: Heart S1, S2 normal. No murmur or gallop heard. CHEST EXAMINATION: Lungs are clear to auscultation and precussion. No chest wall tenderness is noted on palpation or with deep breathing. ABDOMEN: Soft, nontender. Bowel sounds are heard. No organomegaly noted. EXTREMITIES: 2+ peripheral pulses with no evidence of peripheral edema and no calf tenderness noted. NEUROLOGIC patient is awake, alert and oriented -3. . - Labs CBC & Chem 7: 09/15/17 14:04 09/15/17 14:04 Labs: Abnormal Lab Results - Last 24 Hours (Table) 09/15/17 09/15/17 Range/Units 14:04 14:04 RBC 2.89 L (3.80-5.40) m/uL Hgb 9.0 L D (11.4-16.0) gm/dL Hct 25.7 L (34.0-46.0) % Sodium 129 L (137-145) mmol/L Chloride 89 L (98-107) mmol/L BUN 31 H (7-17) mg/dL Creatinine 5.84 H* (0.52-1.04) mg/dL Glucose 137 H (74-99) mg/dL Calcium 7.8 L (8.4-10.2) mg/dL Assessment and Plan Plan: Assessment and plan #1 syncope, likely secondary to orthostatic hypotension. Midodrine dose increased yesterday, today we will decrease Demadex to half. #2 end-stage renal disease on dialysis #3 hypertension #4 hyperlipidemia Plan From cardiology's perspective, we'll decrease Demadex to 20 mg daily and continue the rest of her medications. Follow-up appointment post discharge. DNP note has been reviewed, I agree with a documented findings and plan of care. Patient was seen and examined.
--- NOTE | 2017-09-15 17:29 | P.DS ---
Providers Date of admission: 09/12/17 13:16 Attending physician: Dorothy Sandoval Consults: 09/12/17 13:16 Consult Physician Urgent Consulting Provider: [facility] Consult Reason/Comments: Syncope Do you want consulting provider notified?: Yes 09/12/17 18:37 Consult Physician Urgent Consulting Provider: Conchis Powell Consult Reason/Comments: Dialysis Do you want consulting provider notified?: Yes [facility] Course: This is a pleasant 77 years old female with past medical history of end-stage renal disease on peritoneal dialysis, CAD, hyperlipidemia, hypertension, syncope who presents because of syncope, patient was trying to get into her clinician oncology appointment and while walking using her walker she didn't feel good and needed to sit down and then passed out for about 5 minutes without any seizure-like activity,witnessed by her daughter, she woke up immediately with no residual confusion, patient denies prodromal symptoms, no chest pain no sweating no lightheadedness Patient had 2 episodes in this week and she has another 3 episodes about 4 months ago but she hasn't been evaluated for the cardiac workup included telemetry, suture troponin, echocardiogram and Social Worker Masters evaluation. Manufacturing Engineer Assembly also saw the patient Patient found to have significant postural hypotension with a drop of systolic blood pressure from 150s to 70s, patient medial drain dose was increased to 15 mg 3 times a day, patient showed interval improvement with with mild dizziness, on the day of discharge she distended blood pressure was 116/57, clinician oncology recommended to continue with all 1.5% exchanging for her peritoneal dialysisk Patient was cleared by the cardiology and nephrology service for discharge On the day of discharge blood work shows hemoglobin delusion picture with a drop of hemoglobin from 11 to 9, however her previous hemoglobin was 9 to Her sodium is 129, down from 132 on admission. Patient doesn't have symptoms related to this, appointment has been made with her PCP Dr. Irizarry, I spoke with Dr. Irizarry and discussed the case with him and recommended to recheck her blood work including hemoglobin sodium and others, he Kindly took note of this Physical therapist evaluated the patient, recommended home with home care Her repeat creatinine is 5.8, compared to 5.7 on admission, I discussed that with the clinician oncology on-call dr. Armenta, he said she still okay to go Patient confirmed to me she has an appointment with her clinician oncology this coming pt feels well today, and that she is ready for discharge to home today Problem list were discussed with the patient and management plan, but a daughter at bedside upon patient request, and he verbalized understanding and acceptance Patient was found stable and can be discharged home however she needs follow-up as an outpatient Constitutional: No acute distress, conversant, pleasant Eyes: Anicteric sclerae, moist conjunctiva, no lid-lag PERRLA ENMT: NC/AT Oropharynx clear, no erythema, exudates Neck: Supple, FROM, no masses, or JVD No carotid bruits No thyromegaly Lungs: Clear to auscultation Clear to percussion Normal respiratory effort, no accessory muscle use Cardiovascular: Heart regular in rate and rhythm, No murmurs, gallops, or rubs No peripheral edema Abdominal: Soft Nontender, no guarding, rebound or rigidity Abdomen moving with respiration Normoactive bowel sounds No hepatomegaly, No splenomegaly No palpable mass No abdominal wall hernia noted Skin: Normal temperature, tone, texture, turgor No induration No subcutaneous nodules No rash, lesions No ulcers Extremities: No digital cyanosis No clubbing Pedal pulses intact and symmetrical Radial pulses intact and symmetrical Normal gait and station No calf tenderness Psychiatric: Alert and oriented to person, place and time Appropriate affect Intact judgement Neuro: Muscles Strength 5/5 in all 4 extremities Sensation to light touch grossly present throughout Cranial nerves II-XII grossly intact No focal sensory deficits Patient Condition at Discharge: Good Plan - Discharge Summary Discharge Rx Participant: No New Discharge Prescriptions: New Midodrine [ProAmatine] 15 mg PO AC-TID #90 tab Torsemide [Demadex] 20 mg PO DAILY #30 tab Continue Potassium Chloride [K-Tab ER] 10 meq PO BID Gabapentin [Neurontin] 100 mg PO HS Ferrous Sulfate [Iron (65 MG Elemental)] 325 mg PO DAILY Febuxostat [Uloric] 20 mg PO DAILY Aspirin 325 mg PO DAILY Metoprolol Tartrate [Lopressor] 12.5 mg PO DAILY Midodrine HCl [ProAmatine] 10 mg PO TID Cinacalcet [Sensipar] 30 mg PO MOWEFR Sevelamer [Renvela] 800 mg PO DAILY Ipratropium-Albuterol Nebulize [Duoneb 0.5 mg-3 mg/3 ml Soln] 3 ml INHALATION RT-TID Calcitriol 0.5 mcg PO MO Atorvastatin Calcium [Lipitor] 10 mg PO DAILY Discontinued Torsemide [Demadex] 40 mg PO DAILY Discharge Medication List Febuxostat [Uloric] 20 mg PO DAILY 01/20/16 [History] Ferrous Sulfate [Iron (65 MG Elemental)] 325 mg PO DAILY 01/20/16 [History] Gabapentin [Neurontin] 100 mg PO HS 01/20/16 [History] Potassium Chloride [K-Tab ER] 10 meq PO BID 01/20/16 [History] Aspirin 325 mg PO DAILY 04/03/16 [History] Atorvastatin Calcium [Lipitor] 10 mg PO DAILY 09/12/17 [History] Calcitriol 0.5 mcg PO MO 09/12/17 [History] Cinacalcet [Sensipar] 30 mg PO MOWEFR 09/12/17 [History] Ipratropium-Albuterol Nebulize [Duoneb 0.5 mg-3 mg/3 ml Soln] 3 ml INHALATION RT -TID 09/12/17 [History] Metoprolol Tartrate [Lopressor] 12.5 mg PO DAILY 09/12/17 [History] Midodrine HCl [ProAmatine] 10 mg PO TID 09/12/17 [History] Sevelamer [Renvela] 800 mg PO DAILY 09/12/17 [History] Midodrine [ProAmatine] 15 mg PO AC-TID #90 tab 09/15/17 [Rx] Torsemide [Demadex] 20 mg PO DAILY #30 tab 09/15/17 [Rx] Follow up Appointment(s)/Referral(s): Doni Irizarry MD [Primary Care Provider] - 1-2 days (09/16 at 2:00pm) [facility], [NON-STAFF] - Activity/Diet/Wound Care/Special Instructions: Use renal diet Home with home care Activity as tolerated Discharge Disposition: HOME SELF-CARE
[2017-09-15 17:34] VITALS: BP 167/95; PULSE 76; TEMP 97.6
[2017-09-16] MEDS ORDERED: ASPIRIN 81 MG PO SCH (09:00)
[2017-09-16] MEDS ORDERED: TORSEMIDE 20 MG TAB PO SCH (09:00)
== END 2017-09-15 18:32 | disposition home health service (06) | DRG 312 ==
LOC: EC 10:42 → 6SEL 13:16
PROVIDERS: ADMIT Internal Medicine; ATTEND Internal Medicine
PROC: 3E1M39Z Irrigation of Peritoneal Cavity using Dialysate, Percutaneous Approach (ICD-10-PCS; principal; 2017-09-12)
DX: I95.1 Orthostatic hypotension (principal); N18.6 End stage renal disease; I12.0 Hypertensive chronic kidney disease with stage 5 chronic kidney disease or end stage renal disease; E83.9 Disorder of mineral metabolism, unspecified; D64.9 Anemia, unspecified; I25.10 Atherosclerotic heart disease of native coronary artery without angina pectoris; K90.0 Celiac disease; E78.5 Hyperlipidemia, unspecified; R51 Headache; H91.90 Unspecified hearing loss, unspecified ear; Z99.2 Dependence on renal dialysis; Z66 Do not resuscitate; Z79.82 Long term (current) use of aspirin; Z79.899 Other long term (current) drug therapy; Z91.018 Allergy to other foods; Z90.49 Acquired absence of other specified parts of digestive tract; Z90.710 Acquired absence of both cervix and uterus; Z96.612 Presence of left artificial shoulder joint; Z96.653 Presence of artificial knee joint, bilateral; Z96.643 Presence of artificial hip joint, bilateral; Z95.5 Presence of coronary angioplasty implant and graft; Z82.49 Family history of ischemic heart disease and other diseases of the circulatory system
CPT/HCPCS: 36415; 70450; 71046; 80048; 80053; 80061; 82550; 82553; 83735; 84484; 85025; 85610; 85730; 87324; 93005; 93306; 94640; 94760; 99285

== ENCOUNTER 2018-01-25 20:28 | Emergency (ER) | payer MEDICARE, BC ==
[2018-01-25 20:39] VITALS: RESP 18; TEMP 98.3
--- NOTE | 2018-01-25 22:20 | XR ---
EXAMINATION TYPE: XR chest 2V DATE OF EXAM: 01/25/2018 COMPARISON: 09/12/2017 HISTORY: Weakness TECHNIQUE: Frontal and lateral views of the chest are obtained. FINDINGS: There is no heart failure nor confluent pneumonic infiltrate. Costophrenic angles are maddy r. Thoracic aorta is atheromatous. Bony thorax is intact. IMPRESSION: No active cardiopulmonary disease. Normal heart. No change.
--- NOTE | 2018-01-25 22:21 | XR ---
EXAMINATION TYPE: XR Hip Complete LT DATE OF EXAM: 01/25/2018 COMPARISON: NONE HISTORY: Hip pain for 2 days. Unsteady gait. TECHNIQUE: 2 views FINDINGS: There is a left hip prosthesis. Components appear in anatomic position. I see no fracture. IMPRESSION: Left hip prosthesis without evidence of a complicated process.
[2018-01-25 22:24] LABS: Basophils % (A) 0 %; Eosinophils # (A) 0.2 k/uL (0-0.7); Eosinophils % (A) 2 %; HCT 29.5 % (34.0-46.0); HGB 9.7 gm/dL (11.4-16.0); Lymphocytes # (A) 0.8 k/uL (1.0-4.8); Lymphocytes % (A) 12 %; MCH 31.5 pg (25.0-35.0); MCV 95.3 fL (80.0-100.0); Mean Platelet Volume 6.5; Monocytes # (A) 0.4 k/uL (0-1.0); Monocytes % (A) 6 %; Neutrophils # (A) 4.9 k/uL (1.3-7.7); Neutrophils % (A) 78 %; Platelet Count 214 k/uL (150-450); RBC 3.09 m/uL (3.80-5.40); RDW 13.7 % (11.5-15.5); WBC 6.3 k/uL (3.8-10.6)
[2018-01-25 22:32] LABS: Albumin 3.1 g/dL (3.5-5.0); Calcium 8.8 mg/dL (8.4-10.2); Magnesium 1.6 mg/dL (1.6-2.3); Potassium 4.1 mmol/L (3.5-5.1); Total Bilirubin 0.4 mg/dL (0.2-1.3); Total Protein 5.7 g/dL (6.3-8.2)
--- NOTE | 2018-01-25 22:36 | ED ---
General Adult HPI - General Chief complaint: Extremity Injury, Lower Stated complaint: leg pain Time Seen by Provider: 01/25/18 21:08 Source: EMS Mode of arrival: EMS Limitations: physical limitation - History of Present Illness Initial comments: This patient is 77-year-old woman who complains of having left hip pain which is going on for 2 days now. Patient was not aware of having any trauma to the hip or a fall. She does have history of arthroplasty. No fevers or chills. No weakness or numbness of the extremity Onset/Timin -: days(s) Location: left, lower extremity Radiation: non-radiation Quality: aching Consistency: constant Improves with: none Worsens with: movement Associated Symptoms: denies other symptoms Treatments Prior to Arrival: none - Related Data Home Medications Medication Instructions Recorded Confirmed Febuxostat [Uloric] 20 mg PO DAILY 01/20/16 01/25/18 Gabapentin [Neurontin] 100 mg PO HS 01/20/16 01/25/18 Potassium Chloride [K-Tab ER] 10 meq PO BID 01/20/16 01/25/18 Aspirin 325 mg PO DAILY 04/03/16 01/25/18 Atorvastatin Calcium [Lipitor] 10 mg PO DAILY 09/12/17 01/25/18 Calcitriol 0.5 mcg PO MOWEFR 09/12/17 01/25/18 Cinacalcet [Sensipar] 30 mg PO MOWEFR 09/12/17 01/25/18 Ipratropium-Albuterol Nebulize 3 ml INHALATION RT-BID 09/12/17 01/25/18 [Duoneb 0.5 mg-3 mg/3 ml Soln] Sevelamer [Renvela] 800 mg PO DAILY 09/12/17 01/25/18 Dialyvite 1 tab PO DAILY 01/25/18 01/25/18 Fenofibrate [Lofibra] 54 mg PO DAILY 01/25/18 01/25/18 Midodrine HCl [ProAmatine] 10 mg PO BID 01/25/18 01/25/18 Previous Rx's Medication Instructions Recorded Torsemide [Demadex] 20 mg PO DAILY #30 tab 09/15/17 Allergies Allergy/AdvReac Type Severity Reaction Status Date / Time gluten Allergy celiac Verified 01/25/18 21:14 disease wheat Allergy CELIAC Verified 01/25/18 21:14 DISEASE Review of Systems ROS Statement: Those systems with pertinent positive or pertinent negative responses have been documented in the HPI. ROS Other: All systems not noted in ROS Statement are negative. Constitutional: Denies: fever, chills Respiratory: Denies: cough, dyspnea Cardiovascular: Denies: chest pain, palpitations, edema Gastrointestinal: Denies: abdominal pain Musculoskeletal: Reports: as per HPI, arthralgia. Denies: back pain, joint swelling Neurological: Denies: weakness, numbness, paresthesias Past Medical History Past Medical History: Coronary Artery Disease (CAD), Dialysis, Hyperlipidemia, Hypertension, Renal Disease, Syncope Additional Past Medical History / Comment(s): ONE KIDNEY ONLY FUNCTIONING AT 11 % NOT SURE WHICH ONE/peritoneal dialysis one manual around 3-5pm and one cycle at night, anemia, celiac dx, L ear canal small-slightly [place], wears hearing aide in R ear. History of Any Multi-Drug Resistant Organisms: None Reported Past Surgical History: Appendectomy, Cholecystectomy, Heart Catheterization With Stent, Hysterectomy, Joint Replacement, Orthopedic Surgery Additional Past Surgical History / Comment(s): 04/02/16 PCI with stent, bilateral feet neuromas removed, L total shoulder, bilateral total knees, bilateral total hips with R side done twice, L myringotomy/tube, D&C, colonoscopy. Past Anesthesia/Blood Transfusion Reactions: Postoperative Nausea & Vomiting ( PONV) Additional Past Anesthesia/Blood Transfusion Reaction / Comment(s): PONV once with a hip surgery. Pt has received blood in the past and once in 1977 she had a transfusion reaction with a fever and was packed in ice. Date of Last Stent Placement:: 03/27/16 Past Psychological History: No Psychological Hx Reported Smoking Status: Never smoker Past Alcohol Use History: None Reported Past Drug Use History: None Reported - Past Family History Mother Family Medical History: Myocardial Infarction ([place]) Additional Family Medical History / Comment(s): LIVED TO BE AGE 93 Father Family Medical History: CVA/TIA Additional Family Medical History / Comment(s): AT AGE 52 FROM CEREBRAL HEMORRhAGE General Exam Limitations: physical limitation General appearance: alert, in no apparent distress Head exam: Present: atraumatic, normocephalic Respiratory exam: Present: normal lung sounds bilaterally. Absent: respiratory distress, wheezes, rales, rhonchi, stridor Cardiovascular Exam: Present: regular rate, other (Pedal pulses normal.) GI/Abdominal exam: Present: soft. Absent: tenderness Extremities exam: Present: normal inspection, full ROM, tenderness (Lateral aspect left hip), normal capillary refill. Absent: pedal edema, calf tenderness Back exam: Absent: paraspinal tenderness, vertebral tenderness Neurological exam: Present: alert. Absent: motor sensory deficit Skin exam: Present: warm, dry, intact, normal color. Absent: rash Course Vital Signs 01/25/18 01/25/18 01/25/18 20:31 22:42 22:56 Temperature 98.3 F Pulse Rate 87 83 87 Respiratory 18 18 18 Rate Blood Pressure 193/82 201/85 145/67 O2 Sat by Pulse 97 96 98 Oximetry 01/25/18 23:27 Temperature Pulse Rate 85 Respiratory 18 Rate Blood Pressure 163/74 O2 Sat by Pulse 96 Oximetry EKG Findings - EKG Comments: EKG Findings:: Low voltage QRS complexes - EKG Results: EKG: interpreted by ERMD, sinus rhythm (With PAC, rate approximately 82 bpm) - Blocks, [place], Hypertrophy, ST Abn: AV and intraventricular conduction: 1 AV block - [place], Pacemaker, Normal: Myocardial infarction: inferior [place] (old age indeterminate) Medical Decision Making - Lab Data Result diagrams: 01/25/18 22:00 01/25/18 22:00 Lab Results 01/25/18 01/25/18 Range/Units 22:00 22:00 WBC 6.3 (3.8-10.6) k/uL RBC 3.09 L (3.80-5.40) m/uL Hgb 9.7 L (11.4-16.0) gm/dL Hct 29.5 L (34.0-46.0) % MCV 95.3 (80.0-100.0) fL MCH 31.5 (25.0-35.0) pg MCHC 33.0 (31.0-37.0) g/dL RDW 13.7 (11.5-15.5) % Plt Count 214 (150-450) k/uL Neutrophils % 78 % Lymphocytes % 12 % Monocytes % 6 % Eosinophils % 2 % Basophils % 0 % Neutrophils # 4.9 (1.3-7.7) k/uL Lymphocytes # 0.8 L (1.0-4.8) k/uL Monocytes # 0.4 (0-1.0) k/uL Eosinophils # 0.2 (0-0.7) k/uL Basophils # 0.0 (0-0.2) k/uL Sodium 131 L (137-145) mmol/L Potassium 4.1 (3.5-5.1) mmol/L Chloride 93 L (98-107) mmol/L Carbon Dioxide 28 (22-30) mmol/L Anion Gap 10 mmol/L BUN 26 H (7-17) mg/dL Creatinine 5.83 H (0.52-1.04) mg/dL Est GFR (CKD-EPI)AfAm 7 (>60 ml/min/1.73 sqM) Est GFR (CKD-EPI)NonAf 6 (>60 ml/min/1.73 sqM) Glucose 89 (74-99) mg/dL Calcium 8.8 (8.4-10.2) mg/dL Magnesium 1.6 (1.6-2.3) mg/dL Total Bilirubin 0.4 (0.2-1.3) mg/dL AST 25 (14-36) U/L ALT 33 (9-52) U/L Alkaline Phosphatase 48 (38-126) U/L Total Protein 5.7 L (6.3-8.2) g/dL Albumin 3.1 L (3.5-5.0) g/dL Disposition Clinical Impression: Hip pain Disposition: HOME SELF-CARE Condition: Good Instructions: Hip Pain (ED) Is patient prescribed a controlled substance at d/c from ED?: No Referrals: Doni Irizarry MD [Primary Care Provider] - 1-2 days Roel Dela Cruz MD [STAFF PHYSICIAN] - 1-2 days
[2018-01-25] MEDS ORDERED: LABETALOL 5 MG/ML VIAL MDV IVP STA (22:44)
[2018-01-25 23:28] VITALS: BP 163/74; PULSE 85
== END 2018-01-25 23:49 | disposition home or self-care (01) ==
LOC: EC 20:28
DX: M25.552 Pain in left hip (principal); I25.10 Atherosclerotic heart disease of native coronary artery without angina pectoris; E78.5 Hyperlipidemia, unspecified; I10 Essential (primary) hypertension; Z79.82 Long term (current) use of aspirin; Z79.899 Other long term (current) drug therapy; Z91.018 Allergy to other foods; Z91.048 Other nonmedicinal substance allergy status; Z95.5 Presence of coronary angioplasty implant and graft; Z99.2 Dependence on renal dialysis; Z96.643 Presence of artificial hip joint, bilateral
CPT/HCPCS: 36415; 71046; 73502; 80053; 83735; 85025; 93005; 96374; 99284

== ENCOUNTER 2018-03-28 19:11 | Inpatient (IN) | payer MEDICARE, BC ==
[2018-03-28] MEDS ORDERED: ACETAMINOPHEN TAB 500 MG TAB PO STA (19:43)
[2018-03-28] MEDS ORDERED: IBUPROFEN 600 MG TAB PO STA (19:43)
--- NOTE | 2018-03-28 19:46 | ED ---
General Adult HPI - General Chief complaint: Chest Pain Stated complaint: Chest Pain Time Seen by Provider: 03/28/18 19:15 Source: patient, EMS, RN notes reviewed Mode of arrival: EMS Limitations: no limitations - History of Present Illness Initial comments: This is a 77-year-old female presents emergency Department complaining of chest pain since 3:00 this afternoon. Patient states she also had some tingling in her left arm. Patient denies any increase in difficulty breathing she denies any diaphoretic episodes and she denies any nausea. Patient denies abdominal pain patient denies any vomiting or diarrhea recently. Patient states she isn' t dialysis patient. Patient denies any fever or chills however when she came to the emergency department 101.3 fever. Patient denies any dysuria or hematuria. Patient does still produce urine. Patient denies any cough. Patient denies any rashes erythematous areas or lesions. Patient states she did get the flu shot - Related Data Home Medications Medication Instructions Recorded Confirmed Febuxostat [Uloric] 20 mg PO DAILY 01/20/16 03/28/18 Gabapentin [Neurontin] 100 mg PO HS 01/20/16 03/28/18 Potassium Chloride [K-Tab ER] 10 meq PO DAILY 01/20/16 03/28/18 Aspirin 325 mg PO DAILY 04/03/16 03/28/18 Atorvastatin Calcium [Lipitor] 10 mg PO DAILY 09/12/17 03/28/18 Calcitriol 0.5 mcg PO WE 09/12/17 03/28/18 Cinacalcet [Sensipar] 30 mg PO MOWEFR 09/12/17 03/28/18 Ipratropium-Albuterol Nebulize 3 ml INHALATION RT-BID 09/12/17 03/28/18 [Duoneb 0.5 mg-3 mg/3 ml Soln] Sevelamer [Renvela] 800 mg PO DAILY 09/12/17 03/28/18 Fenofibrate [Lofibra] 54 mg PO DAILY 01/25/18 03/28/18 Midodrine HCl [ProAmatine] 10 mg PO DAILY 01/25/18 03/28/18 Aspirin EC [Ecotrin] 325 mg PO DAILY 03/28/18 03/28/18 Clopidogrel Bisulfate [Plavix] 75 mg PO DAILY 03/28/18 03/28/18 Ergocalciferol (Vitamin D2) 50,000 unit PO WE 03/28/18 03/28/18 [Drisdol] Ferrous Sulfate [Feosol] 325 mg PO DAILY 03/28/18 03/28/18 Nitroglycerin Sl Tabs [Nitrostat] 0.4 mg SUBLINGUAL Q5M PRN 03/28/18 03/28/18 Torsemide 10 mg PO DAILY 03/28/18 03/28/18 Allergies Allergy/AdvReac Type Severity Reaction Status Date / Time gluten Allergy celiac Verified 03/28/18 19:27 disease wheat Allergy CELIAC Verified 03/28/18 19:27 DISEASE Review of Systems ROS Statement: Those systems with pertinent positive or pertinent negative responses have been documented in the HPI. ROS Other: All systems not noted in ROS Statement are negative. Past Medical History Past Medical History: Coronary Artery Disease (CAD), Dialysis, Hyperlipidemia, Hypertension, Renal Disease, Syncope Additional Past Medical History / Comment(s): ONE KIDNEY ONLY FUNCTIONING AT 11 % NOT SURE WHICH ONE/peritoneal dialysis one manual around 3-5pm and one cycle at night, anemia, celiac dx, L ear canal small-slightly [place], wears hearing aide in R ear. History of Any Multi-Drug Resistant Organisms: None Reported Past Surgical History: Appendectomy, Cholecystectomy, Heart Catheterization With Stent, Hysterectomy, Joint Replacement, Orthopedic Surgery Additional Past Surgical History / Comment(s): 04/02/16 PCI with stent, bilateral feet neuromas removed, L total shoulder, bilateral total knees, bilateral total hips with R side done twice, L myringotomy/tube, D&C, colonoscopy. Past Anesthesia/Blood Transfusion Reactions: Postoperative Nausea & Vomiting ( PONV) Additional Past Anesthesia/Blood Transfusion Reaction / Comment(s): PONV once with a hip surgery. Pt has received blood in the past and once in 1977 she had a transfusion reaction with a fever and was packed in ice. Date of Last Stent Placement:: 03/27/16 Past Psychological History: No Psychological Hx Reported Smoking Status: Never smoker Past Alcohol Use History: None Reported Past Drug Use History: None Reported - Past Family History Mother Family Medical History: Myocardial Infarction ([place]) Additional Family Medical History / Comment(s): LIVED TO BE AGE 93 Father Family Medical History: CVA/TIA Additional Family Medical History / Comment(s): AT AGE 52 FROM CEREBRAL HEMORRhAGE General Exam - General Exam Comments Initial Comments: GENERAL: Patient is well-developed and well-nourished. Patient is nontoxic and well- hydrated and is in no acute distress. ENT: Neck is soft and supple. No significant lymphadenopathy is noted. Oropharynx is clear. Moist mucous membranes. Neck has full range of motion without eliciting any pain. EYES: The sclera were anicteric and conjunctiva were pink and moist. Extraocular movements were intact and pupils were equal round and reactive to light. Eyelids were unremarkable. PULMONARY: Unlabored respirations. Good breath sounds bilaterally. No audible rales rhonchi or wheezing was noted. CARDIOVASCULAR: Patient's heart rate is 100 beats a minute and there is occasional extrasystole ABDOMEN: Soft and nontender with normal bowel sounds. No palpable organomegaly was noted. There is no palpable pulsatile mass. SKIN: Skin is clear with no lesions or rashes and otherwise unremarkable. NEUROLOGIC: Patient is alert and oriented x3. Cranial nerves II through XII are grossly intact. Motor and sensory are also intact. Normal speech, volume and content. Symmetrical smile. MUSCULOSKELETAL: Normal extremities with adequate strength and full range of motion. No lower extremity swelling or edema. No calf tenderness. LYMPHATICS: No significant lymphadenopathy is noted PSYCHIATRIC: Normal psychiatric evaluation. Limitations: no limitations Course Vital Signs 03/28/18 19:25 Temperature 101.3 F H Pulse Rate 93 Respiratory 18 Rate Blood Pressure 144/84 O2 Sat by Pulse 96 Oximetry Medical Decision Making - Medical Decision Making EKG shows sinus tachycardia at 103 bpm PA interval 216 QRS is 64 QT interval 354 QTC is 463. Patient also has multiple PACs. Chest x-ray showed a bronchopneumonia per the radiologist. I started the patient Rocephin 2 [address] I spoke with Dr[address] Deleon he agreed to admit the patient admitted the patient I continued antibiotics and repeated troponins. - Lab Data Result diagrams: 03/28/18 19:55 03/28/18 19:55 Lab Results 03/28/18 03/28/18 03/28/18 Range/Units 19:55 19:55 19:55 WBC 7.8 (3.8-10.6) k/uL RBC 3.62 L (3.80-5.40) m/uL Hgb 11.2 L (11.4-16.0) gm/dL Hct 34.8 (34.0-46.0) % MCV 96.2 (80.0-100.0) fL MCH 31.1 (25.0-35.0) pg MCHC 32.3 (31.0-37.0) g/dL RDW 13.2 (11.5-15.5) % Plt Count 227 (150-450) k/uL Neutrophils % 86 % Lymphocytes % 6 % Monocytes % 4 % Eosinophils % 2 % Basophils % 0 % Neutrophils # 6.7 (1.3-7.7) k/uL Lymphocytes # 0.5 L (1.0-4.8) k/uL Monocytes # 0.3 (0-1.0) k/uL Eosinophils # 0.2 (0-0.7) k/uL Basophils # 0.0 (0-0.2) k/uL PT (9.0-12.0) sec INR (<1.2) APTT (22.0-30.0) sec Sodium 135 L (137-145) mmol/L Potassium 3.9 (3.5-5.1) mmol/L Chloride 96 L (98-107) mmol/L Carbon Dioxide 27 (22-30) mmol/L Anion Gap 12 mmol/L BUN 25 H (7-17) mg/dL Creatinine 6.58 H (0.52-1.04) mg/dL Est GFR (CKD-EPI)AfAm 6 (>60 ml/min/1.73 sqM) Est GFR (CKD-EPI)NonAf 6 (>60 ml/min/1.73 sqM) Glucose 112 H (74-99) mg/dL Plasma Lactic Acid Raghu (0.7-2.0) mmol/L Calcium 8.7 (8.4-10.2) mg/dL Total Bilirubin 0.5 (0.2-1.3) mg/dL AST 35 (14-36) U/L ALT 29 (9-52) U/L Alkaline Phosphatase 50 (38-126) U/L Total Creatine Kinase 34 (30-135) U/L Total Protein 6.2 L (6.3-8.2) g/dL Albumin 3.3 L (3.5-5.0) g/dL 03/28/18 03/28/18 Range/Units 19:55 19:55 WBC (3.8-10.6) k/uL RBC (3.80-5.40) m/uL Hgb (11.4-16.0) gm/dL Hct (34.0-46.0) % MCV (80.0-100.0) fL MCH (25.0-35.0) pg MCHC (31.0-37.0) g/dL RDW (11.5-15.5) % Plt Count (150-450) k/uL Neutrophils % % Lymphocytes % % Monocytes % % Eosinophils % % Basophils % % Neutrophils # (1.3-7.7) k/uL Lymphocytes # (1.0-4.8) k/uL Monocytes # (0-1.0) k/uL Eosinophils # (0-0.7) k/uL Basophils # (0-0.2) k/uL PT 10.4 (9.0-12.0) sec INR 1.1 (<1.2) APTT 22.5 (22.0-30.0) sec Sodium (137-145) mmol/L Potassium (3.5-5.1) mmol/L Chloride (98-107) mmol/L Carbon Dioxide (22-30) mmol/L Anion Gap mmol/L BUN (7-17) mg/dL Creatinine (0.52-1.04) mg/dL Est GFR (CKD-EPI)AfAm (>60 ml/min/1.73 sqM) Est GFR (CKD-EPI)NonAf (>60 ml/min/1.73 sqM) Glucose (74-99) mg/dL Plasma Lactic Acid Raghu 2.8 H* (0.7-2.0) mmol/L Calcium (8.4-10.2) mg/dL Total Bilirubin (0.2-1.3) mg/dL AST (14-36) U/L ALT (9-52) U/L Alkaline Phosphatase (38-126) U/L Total Creatine Kinase (30-135) U/L Total Protein (6.3-8.2) g/dL Albumin (3.5-5.0) g/dL Disposition Clinical Impression: Chest pain, Pneumonia Disposition: ADMITTED IP TO THIS HOSP Referrals: Doni Irizarry MD [Primary Care Provider] - 1-2 days Time of Disposition: 20:48
[2018-03-28 20:04] LABS: Basophils % (A) 0 %; Eosinophils # (A) 0.2 k/uL (0-0.7); Eosinophils % (A) 2 %; HCT 34.8 % (34.0-46.0); HGB 11.2 gm/dL (11.4-16.0); Lymphocytes # (A) 0.5 k/uL (1.0-4.8); Lymphocytes % (A) 6 %; MCH 31.1 pg (25.0-35.0); MCHC 32.3 g/dL (31.0-37.0); MCV 96.2 fL (80.0-100.0); Mean Platelet Volume 6.6; Monocytes # (A) 0.3 k/uL (0-1.0); Monocytes % (A) 4 %; Neutrophils # (A) 6.7 k/uL (1.3-7.7); Neutrophils % (A) 86 %; Platelet Count 227 k/uL (150-450); RBC 3.62 m/uL (3.80-5.40); RDW 13.2 % (11.5-15.5); WBC 7.8 k/uL (3.8-10.6)
[2018-03-28 20:14] LABS: Albumin 3.3 g/dL (3.5-5.0); Calcium 8.7 mg/dL (8.4-10.2); Potassium 3.9 mmol/L (3.5-5.1); Total Bilirubin 0.5 mg/dL (0.2-1.3); Total Protein 6.2 g/dL (6.3-8.2)
[2018-03-28 20:21] LABS: INR 1.1 (<1.2); Partial Thromboplastin Time 22.5 sec (22.0-30.0); Prothrombin Time 10.4 sec (9.0-12.0)
--- NOTE | 2018-03-28 20:32 | XR ---
EXAMINATION: XR chest 2V DATE AND TIME: 03/28/2018 8:10 PM CLINICAL INDICATION: Fever TECHNIQUE: PA and lateral COMPARISON: 01/25/2018 FINDINGS: There is a region of dense consolidation superimposed over the mid/lower thoracic spine on the latera l view, likely on the right. This is new since the prior study and is consistent with bronchopneumoni a. Would recommend six-week follow-up PA and lateral chest radiography to prove complete resolution. Remainder of the lungs are clear. The pleural spaces are negative. The cardiac silhouette is moderately enlarged, unchanged. The skeletal structures and soft tissues are negative for acute findings. IMPRESSION: CONSISTENT WITH RIGHT LOWER LOBE BRONCHOPNEUMONIA; SIX-WEEK FOLLOW-UP RADIOGRAPHY RECOMMENDED.
[2018-03-28] MEDS ORDERED: cefTRIAXone 2,000 MG in SODIUM CHLORIDE 0.9% 100 ML IVPB STA (20:45)
[2018-03-28] MEDS ORDERED: AZITHROMYCIN 500 MG in SODIUM CHLORIDE 0.9% 250 ML IVPB STA (20:48)
[2018-03-28] MEDS ORDERED: PNEUMONIA PROTOCOL UTILIZED 1 EACH MISC PO PRN (20:48)
[2018-03-28 20:50] LABS: Troponin I 0.022 ng/mL (0.000-0.034)
[2018-03-28 21:09] LABS: Creatine Kinase MB 0.4 ng/mL (0.0-2.4)
[2018-03-28 21:09] LABS: Amorphous Sediment,Urine Rare /hpf; Appearance,Urine Cloudy (Clear); Bacteria,Urine Rare /hpf; Bilirubin,Urine Negative (Negative); Blood,Urine Trace (Negative); Color,Urine Light Yellow; Glucose,Urine (UA) Negative (Negative); Ketones,Urine Negative (Negative); Leukocyte Esterase,Urine Trace (Negative); Mucus,Urine Rare /hpf; Nitrite,Urine Negative (Negative); PH, Urine 7.5 (5.0-8.0); Protein,Urine 1+ (Negative); RBC,Urine <1 /hpf (0-5); Specific Gravity,Urine 1.006 (1.001-1.035); Squamous Epithelial Cell,Urine 16 /hpf (0-4); Urobilinogen,Urine <2.0 mg/dL (<2.0); WBC,Urine 4 /hpf (0-5)
[2018-03-28] MEDS ORDERED: IPRATROPIUM-ALBUTEROL 3 ML NEB INHALATION STA (21:21)
[2018-03-29] MEDS: DIALYSIS (PERIT 2.5%) 2,000 ML 50 G/2,000 ML BAG INTRAPERIT SCH ×3 (00:20→23:21)
[2018-03-29 02:35] VITALS: BMI 26.5
[2018-03-29] MEDS: DIALYSIS (PERIT 1.5%) 2,000 ML 30 G/2,000 ML BAG INTRAPERIT SCH ×2 (05:38→17:39)
--- NOTE | 2018-03-29 08:01 | XR ---
EXAMINATION TYPE: XR chest 2V DATE OF EXAM: 03/29/2018 COMPARISON: Chest x-ray from yesterday and older studies. HISTORY: Fever and pneumonia. TECHNIQUE: Frontal and lateral views of the chest are obtained. FINDINGS: There is persistent posterior basilar opacity on lateral view likely confined to left lowe r lung on frontal view. Suspect bowel loop just below left hemidiaphragm causing curvilinear lucency. Right lung is clear. No large pleural effusion or pneumothorax is present bilaterally. The cardiac silhouette size is stable and upper limits of normal with atherosclerotic thoracic aorta. Surgical ch suzan left humeral head is redemonstrated. IMPRESSION: Patchy lateral posterior basilar likely left-sided acute infiltrate and/or atelectasis r emains present. No significant interval change.
[2018-03-29] MEDS: AZITHROMYCIN 500 MG TAB PO SCH (08:59)
[2018-03-29] MEDS ORDERED: NITROGLYCERIN SL TABS 0.4 MG TAB SUBLINGUAL PRN (12:16)
[2018-03-29] MEDS ORDERED: IPRATROPIUM-ALBUTEROL 3 ML NEB INHALATION STA (12:19)
[2018-03-29] MEDS: CINACALCET 30 MG TAB PO SCH (12:58)
[2018-03-29] MEDS ORDERED: ERGOCALCIFEROL 50,000 UNIT CAP PO SCH (13:00)
[2018-03-29] MEDS ORDERED: CALCITRIOL 0.25 MCG CAP PO SCH (13:00)
[2018-03-29] MEDS ORDERED: ALPRAZolam 0.25 MG TAB PO PRN (16:51)
[2018-03-29] MEDS ORDERED: CALCIUM CARBONATE 500 MG CHEWABLE PO PRN (16:51)
[2018-03-29] MEDS ORDERED: MELATONIN 3 MG TABLET PO PRN (16:51)
[2018-03-29] MEDS ORDERED: LACTULOSE 20 GM/30 ML CUP PO PRN (16:51)
[2018-03-29] MEDS ORDERED: NALOXONE 0.4 MG/ML 1 ML VIAL IV PRN (16:51)
[2018-03-29] MEDS ORDERED: MAGNESIUM HYDROXIDE 2,400 MG/10 ML CUP PO PRN (16:51)
[2018-03-29] MEDS ORDERED: ONDANSETRON 4 MG/2 ML VIAL IVP PRN (16:51)
[2018-03-29] MEDS ORDERED: ACETAMINOPHEN TAB 325 MG TAB PO PRN (16:51)
--- NOTE | 2018-03-29 18:38 | HP ---
HISTORY AND PHYSICAL DATE OF ADMISSION: 03/28/2018 DATE OF SERVICE: 03/29/2018 PRESENTING COMPLAINT: Chest pain. HISTORY OF PRESENTING COMPLAINT: This is a pleasant 77-year-old patient of Dr. Irizarry. Chronic stable medical conditions include end-stage kidney disease on peritoneal dialysis, hypertension, hyperlipidemia, celiac disease. The patient did have a stent placed about 8 months ago. Yesterday around 3 o'clock, starting having chest pain, pressure-like across the chest. There was no dizziness. No lightheadedness. The pain did go down the left arm. Slight cough was present. The patient actually had a fever when she presented here. Slight cough afterwards. Chest x-ray in the ER did show right lower lobe infiltrate/pneumonia for which antibiotics were started. Given the nature of chest presentation and coronary artery disease history, patient was admitted for further cardiac workup. The patient's initial troponin was 0.022. Patient is currently chest pain free. REVIEW OF SYSTEMS: CONSTITUTIONAL: Tired. HEENT: Decreased hearing in the right ear. RESPIRATORY: As above. CARDIOVASCULAR as above. GASTROINTESTINAL none. GENITOURINARY none. MUSCULOSKELETAL none. DERMATOLOGICAL, HEMATOLOGIC, LYMPHATICS: None. PSYCHIATRY: None. NEUROLOGICAL none. PAST MEDICAL HISTORY: Of end-stage kidney disease on peritoneal dialysis, coronary artery disease with stent about 8 months ago, hypertension, hyperlipidemia, celiac disease, hard of hearing with hearing aid in the right ear. PAST SURGICAL HISTORY: Appendectomy, cholecystectomy, cardiac cath with stent, hysterectomy. The patient's stent was in March of 2016. Bilateral feet neuromas removed, left total shoulder, bilateral total knees, bilateral total hips with right-sided done twice. SOCIAL HISTORY: The patient lives with a daughter. Has a cane and a walker. No smoking. No alcohol. FAMILY HISTORY: Myocardial infarction. HOME MEDICATIONS: 1. Potassium 10 mEq p.o. b.i.d. 2. Torsemide 10 mg p.o. daily. 3. Renvela 800 mg p.o. daily. 4. Nitrostat 0.4 sublingual q.5h p.r.n. 5. Midodrine 10 mg p.o. daily. 6. DuoNeb b.i.d. 7. Neurontin 100 mg at bedtime. 8. Iron 325 p.o. daily. 9. Lofibra 54 mg p.o. daily. 10.Uloric 20 mg p.o. daily. 11.Vitamin D2 60519 units p.o. on Tuesday. 12.Plavix 75 mg a day. 13.Sensipar 30 mg p.o. Tuesday, Tuesday and Tuesday. 14.Calcitriol 0.5 mcg p.o. on Tuesday. 15.Lipitor 10 mg p.o. daily. 16.Aspirin 325 mg p.o. daily. ALLERGIES: GLUTEN AND WHEAT. PHYSICAL EXAMINATION: VITAL SIGNS: Temperature 98.1, pulse 88, respiration 18, blood pressure 157/76, pulse ox 96% on room air. The patient did have a temperature of 101.3 on presentation. GENERAL APPEARANCE: Average build, lying in bed, not in distress. EYES: Pupils are equal. Conjunctivae normal. HEENT: External appearance of nose and ears normal. Oral cavity normal. NECK: JVD not raised. Mass not palpable. RESPIRATORY: Effort normal. LUNGS: Some decreased breath sounds, right base. CARDIOVASCULAR: 1st and 2nd sounds normal. No edema. ABDOMEN: Soft, nontender. Liver and spleen not palpable. LYMPHATICS: No lymph nodes palpable in the neck and axillae. PSYCHIATRY: Alert and oriented x3. Mood and affect normal. NEUROLOGICAL: Pupils equal. Cranial nerves grossly intact. Power and sensation grossly intact. INVESTIGATIONS: Chest x-ray personally reviewed by me shows right lower lobe infiltrate. White count 7.8, hemoglobin 11.2, potassium 3.9, BUN 25, creatinine 6.58. Troponin 0.02. EKG personally reviewed by me shows some ST-segment changes inferior leads. ASSESSMENT: 1. Right lobe pneumonia presented with fever. 2. Possible unstable angina with anterior chest wall pain radiating down the left arm and the patient with known coronary artery disease. 3. Coronary artery disease with stent in March 2016. 4. End-stage kidney disease on peritoneal dialysis. 5. Hyperlipidemia. 6. Essential hypertension. 7. Hard of hearing with hearing aid in the right ear. PLAN: Patient is started on IV ceftriaxone. Home medications are resumed. Cardiology will be consulted. Repeat troponin will be done. Care was discussed with the patient. Questions were answered. Copy to Dr. Irizarry. MMNAYELYL / URIN: [id number] /
[2018-03-29] MEDS: IPRATROPIUM-ALBUTEROL 3 ML NEB INHALATION SCH (19:33)
[2018-03-29] MEDS: GABAPENTIN 100 MG CAP PO SCH (20:25)
[2018-03-30] MEDS: DIALYSIS (PERIT 1.5%) 2,000 ML 30 G/2,000 ML BAG INTRAPERIT SCH (05:06)
--- NOTE | 2018-03-30 08:41 | P.CRDCN ---
History of Present Illness Consult date: 03/30/18 Requesting physician: Patricio Deleon Consult reason: chest pain Chief complaint: Chest pain History of present illness: This is a pleasant 77-year-old female who follows with Dr. Iqbal in the office. She has a known history of coronary artery disease with prior stent placement of the LAD in March 2016, hypertension, hyperlipidemia, renal disease with peritoneal dialysis, anemia. According to the patient, 2 days ago she developed midsternal chest pain and heaviness, she also had some tingling in her left hand. She states that she's been coughing at home, productive, yellow to green sputum, no fever chills, breathing overall has been stable. Because of these symptoms she presented to the emergency room for further evaluation. Her chest x-ray on arrival here was consistent with right lower lobe radical pneumonia. EKG showed a sinus tachycardia with a first- degree AV block, PACs. Repeat chest x-ray performed yesterday showed patchy lateral posterior basilar acute infiltrate. I pressure 144/80, temperature on arrival 101.3. Blood pressure this morning 134/70, temperature 90.8, 94% on room air. White blood cell count is normal at 7.8, hemoglobin 11.2, platelet count 227. Sodium 135, potassium 3.9, BUN 25, creatinine 6.5. Troponins 0.022 , 0.025. Plasma lactic acid level on admission 2.8, 1.9 this morning. Patient was seen and examined this morning, she states last evening she had an episode of chest heaviness which she felt was most likely anxiety. She does state that the chest discomfort she's been experiencing feels different than what she had prior to her stent placement. At the time of my examination this morning she denies any chest discomfort and her breathing overall is stable. Past Medical History Past Medical History: Coronary Artery Disease (CAD), Dialysis, Hyperlipidemia, Hypertension, Renal Disease, Syncope Additional Past Medical History / Comment(s): ONE KIDNEY ONLY FUNCTIONING AT 11 % NOT SURE WHICH ONE/peritoneal dialysis one manual around 3-5pm and one cycle at night, anemia, celiac dx, L ear canal small-slightly SI[place] TRIBE, wears hearing aide in R ear. History of Any Multi-Drug Resistant Organisms: None Reported Past Surgical History: Appendectomy, Cholecystectomy, Heart Catheterization With Stent, Hysterectomy, Joint Replacement, Orthopedic Surgery Additional Past Surgical History / Comment(s): 04/02/16 PCI with stent, bilateral feet neuromas removed, L total shoulder, bilateral total knees, bilateral total hips with R side done twice, L myringotomy/tube, D&C, colonoscopy. Past Anesthesia/Blood Transfusion Reactions: Postoperative Nausea & Vomiting ( PONV) Additional Past Anesthesia/Blood Transfusion Reaction / Comment(s): PONV once with a hip surgery. Pt has received blood in the past and once in 1977 she had a transfusion reaction with a fever and was packed in ice. Date of Last Stent Placement:: 03/27/16 Past Psychological History: No Psychological Hx Reported Additional Psychological History / Comment(s): Pt resides with her daughter at this time. She has a cane and walker to use. She no longer drives, her daughter takes her to [employer]. Her irma also manages her meds. They do peritoneal dialysis. Smoking Status: Never smoker Past Alcohol Use History: None Reported Past Drug Use History: None Reported - Past Family History Mother Family Medical History: Myocardial Infarction ([place]) Additional Family Medical History / Comment(s): LIVED TO BE AGE 93 Father Family Medical History: CVA/TIA Additional Family Medical History / Comment(s): AT AGE 52 FROM CEREBRAL HEMORRhAGE Medications and Allergies Home Medications Medication Instructions Recorded Confirmed Type Febuxostat [Uloric] 20 mg PO DAILY 01/20/16 03/28/18 History Gabapentin [Neurontin] 100 mg PO HS 01/20/16 03/28/18 History Potassium Chloride [K-Tab ER] 10 meq PO BID 01/20/16 03/29/18 History Aspirin 325 mg PO DAILY 04/03/16 03/28/18 History Atorvastatin Calcium [Lipitor] 10 mg PO DAILY 09/12/17 03/28/18 History Calcitriol 0.5 mcg PO WE 09/12/17 03/28/18 History Cinacalcet [Sensipar] 30 mg PO MOWEFR 09/12/17 03/28/18 History Ipratropium-Albuterol Nebulize 3 ml INHALATION RT-BID 09/12/17 03/28/18 History [Duoneb 0.5 mg-3 mg/3 ml Soln] Sevelamer [Renvela] 800 mg PO DAILY 09/12/17 03/28/18 History Fenofibrate [Lofibra] 54 mg PO DAILY 01/25/18 03/28/18 History Midodrine HCl [ProAmatine] 10 mg PO DAILY 01/25/18 03/28/18 History Aspirin EC [Ecotrin] 325 mg PO DAILY 03/28/18 03/28/18 History Clopidogrel Bisulfate [Plavix] 75 mg PO DAILY 03/28/18 03/28/18 History Ergocalciferol (Vitamin D2) 50,000 unit PO WE 03/28/18 03/28/18 History [Drisdol] Ferrous Sulfate [Feosol] 325 mg PO DAILY 03/28/18 03/28/18 History Nitroglycerin Sl Tabs [Nitrostat] 0.4 mg SUBLINGUAL Q5M PRN 03/28/18 03/28/18 History Torsemide 10 mg PO DAILY 03/28/18 03/28/18 History Allergies Allergy/AdvReac Type Severity Reaction Status Date / Time gluten Allergy celiac Verified 03/28/18 19:27 disease wheat Allergy CELIAC Verified 03/28/18 19:27 DISEASE Physical Exam Vitals: Vital Signs Temp Pulse Pulse Resp BP BP Pulse Ox 03/30/18 04:50 98 F 90 18 135/70 94 L 03/30/18 04:00 98 F 90 18 135/70 94 L 03/30/18 03:59 18 03/30/18 00:00 90 18 143/65 98 03/29/18 22:59 97.1 F L 118 H 18 145/87 03/29/18 20:00 98 F 92 18 135/72 97 03/29/18 19:56 97.8 F 99 18 134/75 96 03/29/18 19:46 94 03/29/18 19:35 92 03/29/18 16:59 17 03/29/18 16:47 98.5 F 91 17 143/67 95 03/29/18 15:50 90 03/29/18 15:43 88 03/29/18 12:00 98.1 F 88 18 157/76 96 03/29/18 11:49 98 F 88 18 157/76 96 Intake and Output 03/29/18 03/30/18 03/30/18 22:59 06:59 14:59 Output Total 150 250 Balance -150 -250 Output: Urine 150 250 Other: Voiding Method Toilet Toilet # Voids 2 1 Weight 76.4 kg PHYSICAL EXAMINATION: GENERAL: 77-year-old female in no acute distress at the time of my examination HEENT: Head is atraumatic, normocephalic. Pupils equal, round. Sclera anicteric. Conjunctiva are clear. Mucous membranes of the mouth are moist. Neck is supple. There is no elevated jugular venous pressure. No carotid bruit is heard. HEART EXAMINATION: Heart S1, S2 normal. No murmur or gallop heard. CHEST EXAMINATION: Lungs are clear with fine crackles to bilateral bases . No chest wall tenderness is noted on palpation or with deep breathing. ABDOMEN: Soft, nontender. Bowel sounds are heard. No organomegaly noted. EXTREMITIES: 2+ peripheral pulses with no evidence of peripheral edema and no calf tenderness noted. NEUROLOGIC patient is awake, alert and oriented 3 . . Results 03/28/18 19:55 03/28/18 19:55 Cardiac Enzymes 03/29/18 Range/Units 17:47 Troponin I 0.025 (0.000-0.034) ng/mL Current Medications Generic Name Dose Route Start Last Admin Trade Name Freq PRN Reason Stop Dose Admin Acetaminophen 650 mg 03/29/18 16:51 Tylenol Tab PO Q6HR PRN Mild Pain or Fever > 100.5 Albuterol/Ipratropium 3 ml 03/29/18 20:00 03/29/18 19:33 Duoneb 0.5 Mg-3 Mg/3 Ml Soln INHALATION 3 ml RT-BID BRIANNA Administration Allopurinol 100 mg 03/30/18 09:00 Zyloprim PO DAILY BRIANNA Alprazolam 0.25 mg 03/29/18 16:51 Xanax PO Q6HR PRN Anxiety Aspirin 325 mg 03/30/18 09:00 Aspirin PO DAILY [facility] Atorvastatin Calcium 10 mg 03/30/18 09:00 Lipitor PO DAILY BRIANNA Azithromycin 500 mg 03/29/18 09:00 03/29/18 08:59 Zithromax PO 500 mg DAILY BRIANNA Administration Calcitriol 0.5 mcg 03/29/18 13:00 03/29/18 12:59 Rocaltrol PO 0.5 mcg WE [facility] Administration Calcium Carbonate/Glycine 1,000 mg 03/29/18 16:51 Tums PO Q4HR PRN Dyspepsia Cinacalcet 30 mg 03/29/18 13:00 03/29/18 12:58 Sensipar PO 30 mg MOWEFR BRIANNA Administration Clopidogrel Bisulfate 75 mg 03/30/18 09:00 Plavix PO DAILY [facility] Ergocalciferol 50,000 unit 03/29/18 13:00 03/29/18 12:58 Vitamin D2 PO 50,000 unit WE BRIANNA Administration Fenofibrate 54 mg 03/30/18 09:00 Lofibra PO DAILY BRIANNA Ferrous Sulfate 325 mg 03/30/18 12:00 Feosol PO DAILY@1200 BRIANNA Gabapentin 100 mg 03/29/18 21:00 03/29/18 20:25 Neurontin PO 100 mg HS BRIANNA Administration Peritoneal Dialysis Solution 50 g in 2,000 mls @ 0 mls/hr 03/28/18 23:00 23:21 Delflex With 2.5% Dextrose (2,000 Ml) INTRAPERIT 1,800 mls/hr Q12H BRIANNA Administration As Directed Peritoneal Dialysis Solution 30 g in 2,000 mls @ 0 mls/hr 03/29/18 05:00 05:06 Delflex With 1.5% Dextrose (2,000 Ml) INTRAPERIT 1,800 mls/hr Q12H BRIANNA Administration As Directed Ceftriaxone Sodium 1,000 mg/ 50 mls @ 100 mls/hr 03/29/18 17:00 03/29/18 18: 29 Sodium Chloride IVPB 100 mls/hr Q24HR BRIANNA Administration Lactulose 20 gm 03/29/18 16:51 Cephulac PO DAILY PRN Constipation Magnesium Hydroxide 2,400 mg 03/29/18 16:51 Milk Of Magnesia PO DAILY PRN Constipation Melatonin 3 mg 03/29/18 16:51 Melatonin PO HS PRN Insomnia Midodrine 10 mg 03/30/18 09:00 Proamatine PO DAILY [facility] Miscellaneous Information 1 each 03/28/18 20:48 Pneumonia Protocol Utilized PO ONCE PRN Per Protocol Naloxone HCl 0.2 mg 03/29/18 16:51 Narcan IV Q2M PRN Opioid Reversal Nitroglycerin 0.4 mg 03/29/18 12:16 Nitrostat SUBLINGUAL Q5M PRN Chest Pain Ondansetron HCl 4 mg 03/29/18 16:51 Zofran IVP Q8HR PRN Nausea And Vomiting Potassium Chloride 10 meq 03/30/18 09:00 K-Dur 10 PO DAILY BRIANNA Sevelamer Carbonate 800 mg 03/30/18 09:00 Renvela PO DAILY BRIANNA Torsemide 10 mg 03/30/18 09:00 Demadex PO DAILY BRIANNA Intake and Output 03/29/18 03/30/18 03/30/18 22:59 06:59 14:59 Output Total 150 250 Balance -150 -250 Output: Urine 150 250 Other: Voiding Method Toilet Toilet # Voids 2 1 Weight 76.4 kg 03/28/18 19:55 03/28/18 19:55 EKG Interpretations (text) EKG shows normal sinus rhythm with first-degree AV block and occasional PACs Assessment and Plan Plan: Assessment and plan #1 symptoms of midsternal chest pressure and heaviness with some atypical features for acute coronary syndrome. EKG shows normal sinus rhythm with first- degree AV block, PACs and nonspecific T-wave changes. Troponin 0.0-2, 0.025. #2 right lower lobe pneumonia #3 known history of coronary artery disease with prior LAD stenting in March 2016 #4 end-stage renal disease on peritoneal dialysis #5 hyperlipidemia #6 hypertension Plan We will repeat an echocardiogram with Doppler study. Echo performed in August of this year showed a normal left ventricular systolic function. We will also repeat a third troponin. The patient's pain is somewhat atypical for acute coronary syndrome, however she does have known underlying coronary artery disease. Once the pneumonia clears, she will need further evaluation. We'll decrease her aspirin to 81 mg daily, continue Lipitor, consider low-dose beta svitlana. Further recommendations to follow. DNP note has been reviewed, I agree with a documented findings and plan of care. Patient was seen and examined.
[2018-03-30] MEDS: IPRATROPIUM-ALBUTEROL 3 ML NEB INHALATION SCH ×2 (08:44→21:10)
[2018-03-30] MEDS: AZITHROMYCIN 500 MG TAB PO SCH (08:50)
[2018-03-30] MEDS: SEVELAMER 800 MG TAB PO SCH (08:50)
[2018-03-30] MEDS: MIDODRINE 5 MG TAB PO SCH (08:50)
[2018-03-30] MEDS: TORSEMIDE 20 MG TAB PO SCH (08:51)
[2018-03-30] MEDS: FENOFIBRATE 54 MG TAB PO SCH (08:51)
[2018-03-30] MEDS: CLOPIDOGREL 75 MG TAB PO SCH (08:51)
[2018-03-30] MEDS: ALLOPURINOL 100 MG TAB PO SCH (08:51)
[2018-03-30] MEDS: POTASSIUM CHLORIDE ER 10 MEQ TAB.ER.PRT PO SCH (08:51)
[2018-03-30] MEDS ORDERED: ASPIRIN 325 MG TAB PO SCH (09:00)
[2018-03-30] MEDS ORDERED: ATORVASTATIN 10 MG TAB PO SCH (09:00)
[2018-03-30] MEDS: DIALYSIS (PERIT 2.5%) 2,000 ML 45 G/1,800 ML BAG INTRAPERIT SCH ×2 (10:54→23:10)
[2018-03-30] MEDS: FERROUS SULFATE 325 MG TAB PO SCH (11:08)
--- NOTE | 2018-03-30 12:27 | ECHOF ---
Referral Reason:chest pain MEASUREMENTS -------- HEIGHT: 170.2 cm WEIGHT: 76.2 kg BP: 135/70 RVIDd: 2.6 cm (< 3.3) IVSd: 1.2 cm (0.6 - 1.1) LVIDd: 4.0 cm (3.9 - 5.3) LVPWd: 1.3 cm (0.6 - 1.1) IVSs: 1.8 cm LVIDs: 2.8 cm LVPWs: 1.4 cm LA Diam: 2.9 cm (2.7 - 3.8) LAESV Index (A-L): 15.35 ml/m Ao Diam: 3.4 cm (2.0 - 3.7) AV Cusp: 2.2 cm (1.5 - 2.6) MV EXCURSION: 16.594 mm (> 18.000) MV EF SLOPE: 35 mm/s (70 - 150) EPSS: 0.9 cm MV E Huey: 0.77 m/s MV DecT: 220 ms MV A Huey: 1.11 m/s MV E/A Ratio: 0.69 FINDINGS -------- Sinus rhythm. This was a technically adequate study. The left ventricular size is normal. There is mild concentric left ventricular hypertrophy. Overa ll left ventricular systolic function is normal with, an EF between 55 - 60 %. The right ventricle is normal in size. Normal LA size by volume 22+/-6 ml/m2. The right atrium is normal in size. There is mild aortic valve sclerosis. There is trace mitral regurgitation. The tricuspid valve appears structurally normal. Trace/mild (physiologic) pulmonic regurgitation. The aortic root size is normal. Normal inferior vena cava with normal inspiratory collapse consistent with estimated right atrial pre ssure of 5 mmHg. There is no pericardial effusion. CONCLUSIONS -------- 1. Sinus rhythm. 2. This was a technically adequate study. 3. The left ventricular size is normal. 4. There is mild concentric left ventricular hypertrophy. 5. Overall left ventricular systolic function is normal with, an EF between 55 - 60 %. 6. The right ventricle is normal in size. 7. Normal LA size by volume 22+/-6 ml/m2. 8. The right atrium is normal in size. 9. There is mild aortic valve sclerosis. 10. There is trace mitral regurgitation. 11. The tricuspid valve appears structurally normal. 12. Trace/mild (physiologic) pulmonic regurgitation. 13. The aortic root size is normal. 14. Normal inferior vena cava with normal inspiratory collapse consistent with estimated right atrial pressure of 5 mmHg. 15. There is no pericardial effusion. NUMERICAL CONTROL TOOL PROGRAMMER: Dee Florez RDCS
[2018-03-30] MEDS ORDERED: DIALYSIS (PERIT 1.5%) 2,000 ML 27 G/1,800 ML BAG INTRAPERIT SCH (17:00)
--- NOTE | 2018-03-30 17:00 | CONS ---
CONSULTATION REASON FOR CONSULTATION: Renal failure. HISTORY OF PRESENT ILLNESS: The patient is a 77-year-old female with end-stage renal disease, on peritoneal dialysis. She was admitted to the hospital with complaints of vomiting, feeling weak. She had a fever after she came into the hospital of 101.3 degrees Fahrenheit. Chest x- ray shows infiltrate on the left side. Currently patient is maintained on antibiotics. She had some cough, and the cough seems to have increased now. Patient denies any chest pain currently. She did have some chest pain prior to admission. There is no diarrhea. Peritoneal fluid has been clear. PAST MEDICAL HISTORY: 1. End-stage renal disease. 2. CKD mineral bone disorder. 3. Orthostatic hypotension. 4. Coronary artery disease. 5. Hyperlipidemia. 6. Anemia of chronic disease. PAST SURGICAL HISTORY: 1. Appendectomy. 2. Cholecystectomy. 3. Cardiac catheterization. 4. Coronary stent placement. 5. Hysterectomy. 6. Bilateral hip arthroplasty. 7. Colonoscopy. 8. D&C. 9. Left myringotomy. 10.Left shoulder replacement. SOCIAL HISTORY: Negative for smoking, drug abuse or alcohol abuse. REVIEW OF SYSTEMS: As per HPI. Other systems negative. MEDICATIONS: Medications at home prior to admission: 1. Uloric. 2. Neurontin. 3. Potassium. 4. Lipitor. 5. Aspirin. 6. Sensipar. 7. Calcitriol. 8. Renvela. 9. Midodrine. 10.Iron. 11.Nitrostat. 12.Torsemide. 13.Plavix. 14.Ecotrin. ALLERGIES: ALLERGIES include GLUTEN and WHEAT. PHYSICAL EXAMINATION: Patient is currently comfortable, awake, not in any acute distress. Blood pressure is 135/70, heart rate 90 per minute. Patient is afebrile. EXAMINATION OF THE HEART: S1, S2. EXAMINATION OF LUNGS: Bilateral breath sounds are heard. ABDOMEN: Soft, non-tender. Examination of lower extremities shows no significant edema. [employer]PRESENTATIVE exam is grossly intact. LABS: Sodium 135, potassium 3.9, chloride 96, BUN 25, serum creatinine 6.58. Lactic acid was 2.8. It is down to 1.9. Hemoglobin was 11.2 g/dL. ASSESSMENT: 1. End-stage renal disease, currently on peritoneal dialysis. I will continue with the current PD exchanges. 2. Left lower lobe pneumonia, maintained on antibiotics. Will continue for now. 3. Chronic kidney disease mineral bone disorder. Continue with the Rocaltrol. 4. Gout/hyperuricemia, maintained on allopurinol. 5. Dyslipidemia, currently on fenofibrate. PLAN: Continue with current PD exchanges and encourage increased oral intake. Continue with potassium supplementation. Continue with Rocaltrol and Sensipar. Thank you for this consultation. Will continue to follow the patient with you during her hospitalization. MMODL / IJN: [id number] /
[2018-03-30] MEDS: GABAPENTIN 100 MG CAP PO SCH ×2 (20:57→20:58)
[2018-03-31] MEDS: DIALYSIS INTRAPERIT SCH ×4 (05:04→23:11)
--- NOTE | 2018-03-31 07:25 | PN ---
PROGRESS NOTE DATE OF SERVICE: 03/30/2018 PRESENTING COMPLAINT: Chest pain. INTERVAL HISTORY: Patient presented with chest pain. A 2D echo did not show any wall motion abnormality. Some medications were adjusted by Cardiology. The patient is feeling much better today, tolerating a diet. Minimal cough. No fever. REVIEW OF SYSTEMS: Done for constitutional, cardiovascular, GI, pulmonary; relevant findings as above. CURRENT MEDICATIONS: Reviewed that include IV ceftriaxone. PHYSICAL EXAMINATION: Temperature 97.8, pulse 88, respirations 18, blood pressure 149/81, pulse ox 96% on room air. GENERAL APPEARANCE: Sitting up, comfortable. EYES: Pupils equal, conjunctivae are normal. HEENT: External appearance of nose and ears normal. Oral cavity normal. NECK: JVD not raised. Mass not palpable. RESPIRATORY: Effort normal. LUNGS: Decreased breath sounds. CARDIOVASCULAR: First and second sounds normal, no edema. ABDOMEN: Soft, nontender. Liver and spleen not palpable. PSYCHIATRY: Alert and oriented x3. Mood and affect normal. INVESTIGATIONS: Troponin noted. ASSESSMENT: 1. Right lower lobe pneumonia with clinical response. 2. Coronary artery disease with a stent. 3. End-stage kidney disease on peritoneal dialysis. 4. Hyperlipidemia. 5. Essential hypertension. 6. Hard of hearing with hearing aid in the right ear. PLAN: Cardiology did adjust some medications. Patient remains on IV antibiotic, doing rather well. No further chest pain. Hopefully can be discharged tomorrow if remains stable. MMODL / IJN: [id number] /
[2018-03-31 07:39] LABS: Calcium 8.4 mg/dL (8.4-10.2); Potassium 3.7 mmol/L (3.5-5.1)
[2018-03-31] MEDS: IPRATROPIUM-ALBUTEROL 3 ML NEB INHALATION SCH ×2 (08:13→20:26)
[2018-03-31] MEDS: MIDODRINE 5 MG TAB PO SCH (08:24)
[2018-03-31] MEDS: TORSEMIDE 20 MG TAB PO SCH (08:29)
[2018-03-31] MEDS: AZITHROMYCIN 500 MG TAB PO SCH (08:30)
[2018-03-31] MEDS: FERROUS SULFATE 325 MG TAB PO SCH (08:30)
[2018-03-31] MEDS: CINACALCET 30 MG TAB PO SCH (08:30)
[2018-03-31] MEDS: ALLOPURINOL 100 MG TAB PO SCH (08:30)
[2018-03-31] MEDS: SEVELAMER 800 MG TAB PO SCH (08:30)
[2018-03-31] MEDS: CLOPIDOGREL 75 MG TAB PO SCH (08:30)
[2018-03-31] MEDS: FENOFIBRATE 54 MG TAB PO SCH (08:30)
[2018-03-31] MEDS: ATORVASTATIN 40 MG TAB PO SCH (08:31)
[2018-03-31] MEDS: POTASSIUM CHLORIDE ER 10 MEQ TAB.ER.PRT PO SCH (08:31)
[2018-03-31] MEDS: METOPROLOL TARTRATE 25 MG TAB PO SCH (08:31)
[2018-03-31] MEDS: ASPIRIN 81 MG PO SCH (08:31)
--- NOTE | 2018-03-31 11:27 | P.PN ---
Subjective Patient is seen in follow-up for end-stage renal disease. She is maintained on peritoneal dialysis. She is currently being treated for pneumonia. Continues to have a productive cough with yellow and green sputum. No vomiting or diarrhea. Hemodynamically stable. She is afebrile. No problems with peritoneal dialysis. Vital signs are stable. General: The patient appeared well nourished and normally developed. HEENT: Head exam is unremarkable. Neck is without jugular venous distension. LUNGS: Lungs are clear to auscultation and percussion. Breath sounds decreased. HEART: Rate and Rhythm are regular. First and second heart sounds normal. No murmurs, rubs or gallops. ABDOMEN: Abdominal exam reveals normal bowel sounds. Non-tender and non- distended. No evidence of peritonitis. EXTREMITITES: No clubbing, cyanosis, or edema. Objective - Vital Signs Vital signs: Vital Signs Temp 98.1 F 03/31/18 08:00 Pulse 78 03/31/18 08:21 Resp 18 03/31/18 08:00 BP 171/80 03/31/18 08:00 Pulse Ox 97 03/31/18 08:00 Intake & Output 03/30/18 03/31/18 03/31/18 18:59 06:59 18:59 Intake Total 320 240 120 Output Total 300 Balance 20 240 120 Weight 76.8 kg Intake: Oral 320 240 120 Output: Urine 300 Other: Voiding Method Toilet Toilet # Voids 1 - Labs CBC & Chem 7: 03/28/18 19:55 03/31/18 06:29 Labs: Abnormal Lab Results - Last 24 Hours (Table) 03/31/18 Range/Units 06:29 Sodium 133 L (137-145) mmol/L Chloride 95 L (98-107) mmol/L BUN 24 H (7-17) mg/dL Creatinine 6.84 H (0.52-1.04) mg/dL Glucose 102 H (74-99) mg/dL Microbiology - Last 24 Hours (Table) 03/28/18 19:55 Blood Culture - Preliminary Blood No Growth after 48 hours Assessment and Plan Plan: Assessment: 1. End-stage renal disease maintained on peritoneal dialysis. 2. Pneumonia maintain on antibiotics. 3. Hypertension with chronic kidney disease. 4. Chronic kidney disease mineral bone disease maintained on Renvela and Sensipar. Also on calcitriol. Plan: Maintain current PD exchanges. Continue with diuretics and potassium supplementation.
[2018-03-31] MEDS: amLODIPine 5 MG TAB PO SCH (13:05)
--- NOTE | 2018-03-31 13:44 | P.PN ---
Subjective Progress Note Date: 03/31/18 This is a pleasant 77-year-old female who follows with Dr. Iqbal in the office. She has a known history of coronary artery disease with prior stent placement of the LAD in March 2016, hypertension, hyperlipidemia, renal disease with peritoneal dialysis, anemia. According to the patient, 2 days ago she developed midsternal chest pain and heaviness, she also had some tingling in her left hand. She states that she's been coughing at home, productive, yellow to green sputum, no fever chills, breathing overall has been stable. Because of these symptoms she presented to the emergency room for further evaluation. Her chest x-ray on arrival here was consistent with right lower lobe radical pneumonia. EKG showed a sinus tachycardia with a first- degree AV block, PACs. Repeat chest x-ray performed yesterday showed patchy lateral posterior basilar acute infiltrate. I pressure 144/80, temperature on arrival 101.3. Blood pressure this morning 134/70, temperature 90.8, 94% on room air. White blood cell count is normal at 7.8, hemoglobin 11.2, platelet count 227. Sodium 135, potassium 3.9, BUN 25, creatinine 6.5. Troponins 0.022 , 0.025. Plasma lactic acid level on admission 2.8, 1.9 this morning. Patient was seen and examined this morning, she states last evening she had an episode of chest heaviness which she felt was most likely anxiety. She does state that the chest discomfort she's been experiencing feels different than what she had prior to her stent placement. At the time of my examination this morning she denies any chest discomfort and her breathing overall is stable. Patient was seen and examined this morning, continues to have a productive cough with yellowish-green sputum, hemodynamically she is stable. Echocardiogram with Doppler study revealed a normal left ventricular systolic function. Objective - Vital Signs Vital signs: Vital Signs Temp 98 F 03/31/18 11:36 Pulse 80 03/31/18 11:36 Resp 18 03/31/18 11:36 BP 181/86 03/31/18 11:36 Pulse Ox 95 03/31/18 11:36 Intake & Output 03/30/18 03/31/18 03/31/18 18:59 06:59 18:59 Intake Total 320 240 120 Output Total 300 Balance 20 240 120 Weight 76.8 kg Intake: Oral 320 240 120 Output: Urine 300 Other: Voiding Method Toilet Toilet # Voids 1 - Exam PHYSICAL EXAMINATION: GENERAL: 77-year-old female in no acute distress at the time of my examination HEENT: Head is atraumatic, normocephalic. Pupils equal, round. Sclera anicteric. Conjunctiva are clear. Mucous membranes of the mouth are moist. Neck is supple. There is no elevated jugular venous pressure. No carotid bruit is heard. HEART EXAMINATION: Heart S1, S2 normal. No murmur or gallop heard. CHEST EXAMINATION: Lungs are clear with fine crackles to bilateral bases . No chest wall tenderness is noted on palpation or with deep breathing. ABDOMEN: Soft, nontender. Bowel sounds are heard. No organomegaly noted. EXTREMITIES: 2+ peripheral pulses with no evidence of peripheral edema and no calf tenderness noted. NEUROLOGIC patient is awake, alert and oriented 3 . . - Labs CBC & Chem 7: 03/28/18 19:55 03/31/18 06:29 Labs: Abnormal Lab Results - Last 24 Hours (Table) 03/31/18 Range/Units 06:29 Sodium 133 L (137-145) mmol/L Chloride 95 L (98-107) mmol/L BUN 24 H (7-17) mg/dL Creatinine 6.84 H (0.52-1.04) mg/dL Glucose 102 H (74-99) mg/dL Microbiology - Last 24 Hours (Table) 03/28/18 19:55 Blood Culture - Preliminary Blood No Growth after 48 hours Assessment and Plan Plan: Assessment and plan #1 symptoms of midsternal chest pressure and heaviness with some atypical features for acute coronary syndrome. EKG shows normal sinus rhythm with first- degree AV block, PACs and nonspecific T-wave changes. Troponin 0.0-2, 0.025. #2 right lower lobe pneumonia #3 known history of coronary artery disease with prior LAD stenting in March 2016 #4 end-stage renal disease on peritoneal dialysis #5 hyperlipidemia #6 hypertension Plan Echo revealed normal left ventricular systolic function. From cardiology's perspective, we'll recommend to continue current medications. As an outpatient down the road a stress test performed. We will follow this patient with you now on an as-needed basis only, please don't hesitate to call with any questions DNP note has been reviewed, I agree with a documented findings and plan of care. Patient was seen and examined.
[2018-03-31] MEDS: LOPERAMIDE 2 MG CAP PO SCH (23:11)
--- NOTE | 2018-04-01 01:39 | PN ---
PROGRESS NOTE DATE OF SERVICE: 03/31/2018. PRESENTING COMPLAINT: Shortness of breath. INTERVAL HISTORY: This patient presented with pneumonia and some chest pain. No further workup by Cardiology. The patient has had some diarrhea and feeling a bit rundown. No cough. No shortness of breath. REVIEW OF SYSTEMS: Done for constitutional, cardiovascular, GI, pulmonary; relevant findings as above. CURRENT MEDICATIONS: Reviewed that include IV ceftriaxone. PHYSICAL EXAMINATION: Temperature 97.7, pulse 82, respiratory rate 18, blood pressure 160/84 pulse 95 percent on room air. GENERAL APPEARANCE: Lying in bed, awake. EYES: Pupils are normal. Conjunctivae normal. HEENT: External appearance of nose and ears normal. Oral cavity normal. NECK: JVD not raised. Mass not palpable. Respiratory effort normal. LUNGS: Decreased breath sounds. CARDIOVASCULAR: 1st and 2nd heart sounds. No edema. ABDOMEN: Soft, nontender. Liver and spleen not palpable. PSYCHIATRY: Alert and oriented x3. Mood and affect normal. INVESTIGATIONS: Potassium 3.7, BUN 24, creatinine 0.84. C diff came back negative. ASSESSMENT: 1. Right lobe pneumonia with put clinical response. 2. Antibiotic associated diarrhea. No evidence of C diff. 3. Coronary artery disease with stent. 4. End-stage kidney disease on peritoneal dialysis. 5. Hyperlipidemia. 6. Essential hypertension. 7. Hard of hearing with hearing aid in the right ear. PLAN: Patient overall doing much better. Will DC the IV ceftriaxone, switch to Avelox. Will give the patient Lomotil. Diet to be scaled back. Temporarily peritoneal dialysis to continue. MMODL / IJN: [id number] /
[2018-04-01] MEDS: DIALYSIS INTRAPERIT SCH ×2 (05:18→13:12)
[2018-04-01] MEDS: IPRATROPIUM-ALBUTEROL 3 ML NEB INHALATION SCH (06:02)
[2018-04-01 07:49] LABS: Calcium 8.5 mg/dL (8.4-10.2); Potassium 3.5 mmol/L (3.5-5.1)
--- NOTE | 2018-04-01 08:14 | P.PN ---
Subjective Patient is seen in follow-up for end-stage renal disease. She is maintained on peritoneal dialysis. She is currently being treated for pneumonia. Cough improved. No vomiting or diarrhea. Hemodynamically stable. She is afebrile. No problems with peritoneal dialysis. Vital signs are stable. General: The patient appeared well nourished and normally developed. HEENT: Head exam is unremarkable. Neck is without jugular venous distension. LUNGS: Lungs are clear to auscultation and percussion. Breath sounds decreased. HEART: Rate and Rhythm are regular. First and second heart sounds normal. No murmurs, rubs or gallops. ABDOMEN: Abdominal exam reveals normal bowel sounds. Non-tender and non- distended. No evidence of peritonitis. EXTREMITITES: No clubbing, cyanosis, or edema. Objective - Vital Signs Vital signs: Vital Signs Temp 98.5 F 04/01/18 05:15 Pulse 82 04/01/18 06:12 Resp 18 04/01/18 05:15 BP 137/74 04/01/18 05:15 Pulse Ox 95 04/01/18 05:15 Intake & Output 03/31/18 04/01/18 04/01/18 18:59 06:59 18:59 Intake Total 240 Balance 240 Weight 72.8 kg Intake: Oral 240 Other: Voiding Method Toilet # Voids 2 1 - Labs CBC & Chem 7: 03/28/18 19:55 04/01/18 06:36 Labs: Abnormal Lab Results - Last 24 Hours (Table) 04/01/18 Range/Units 06:36 Sodium 134 L (137-145) mmol/L Chloride 95 L (98-107) mmol/L BUN 22 H (7-17) mg/dL Creatinine 6.71 H (0.52-1.04) mg/dL Glucose 106 H (74-99) mg/dL Microbiology - Last 24 Hours (Table) 03/31/18 Unknown Gram Stain - Preliminary Sputum Sputum Culture - Preliminary 03/28/18 19:55 Blood Culture - Preliminary Blood No Growth after 72 hours Assessment and Plan Plan: Assessment: 1. End-stage renal disease maintained on peritoneal dialysis. 2. Pneumonia maintain on antibiotics. 3. Hypertension with chronic kidney disease. Controlled. 4. Chronic kidney disease mineral bone disease maintained on Renvela and Sensipar. Also on calcitriol. Plan: Maintain current PD exchanges. Continue with diuretics and potassium supplementation. Stable to be discharged home from nephrology standpoint.
[2018-04-01] MEDS: amLODIPine 5 MG TAB PO SCH (08:43)
[2018-04-01] MEDS: ATORVASTATIN 40 MG TAB PO SCH (08:43)
[2018-04-01] MEDS: CLOPIDOGREL 75 MG TAB PO SCH (08:43)
[2018-04-01] MEDS: LOPERAMIDE 2 MG CAP PO SCH (08:43)
[2018-04-01] MEDS: ALLOPURINOL 100 MG TAB PO SCH (08:44)
[2018-04-01] MEDS: ASPIRIN 81 MG PO SCH (08:44)
[2018-04-01] MEDS: FERROUS SULFATE 325 MG TAB PO SCH (08:44)
[2018-04-01] MEDS: METOPROLOL TARTRATE 25 MG TAB PO SCH (08:44)
[2018-04-01] MEDS: MIDODRINE 5 MG TAB PO SCH (08:47)
[2018-04-01] MEDS ORDERED: CEFDINIR 300 MG CAP PO SCH (09:00)
[2018-04-01] MEDS: POTASSIUM CHLORIDE ER 10 MEQ TAB.ER.PRT PO SCH (09:03)
[2018-04-01] MEDS: SEVELAMER 800 MG TAB PO SCH (10:05)
[2018-04-01] MEDS: TORSEMIDE 20 MG TAB PO SCH (10:06)
[2018-04-01] MEDS: FENOFIBRATE 54 MG TAB PO SCH (10:06)
[2018-04-01 14:24] VITALS: BP 160/72; PULSE 96; RESP 16; TEMP 98.1
--- NOTE | 2018-04-02 08:23 | DS ---
DISCHARGE SUMMARY DATE OF ADMISSION: 03/28/18. DATE OF DISCHARGE: 04/01/18. FINAL DIAGNOSES: 1. Right lower lobe pneumonia suspect gram-negative organism. 2. Antibiotic associated diarrhea. No evidence of C diff. 3. Coronary artery with stent. 4. End-stage kidney disease on peritoneal dialysis. 5. Hyperlipidemia. 6. Essential hypertension. 7. Hard of hearing with hearing aid in the right ear. HOSPITAL COURSE: The patient presented with chest pain, found to have pneumonia, had a fever, responded well to antibiotics. Did have some diarrhea, settled down. Negative for C diff. Did have a 2-D echocardiogram. EF of 55-[address]. Montgomery from Cardiology. No further intervention. PHYSICAL EXAMINATION: Temperature 98.1, pulse 96, respiration 16, blood pressure 160/72, pulse ox 95% on room air. LUNGS: Fair entry. CARDIOVASCULAR: 1st and 2nd sounds normal. DISCHARGE MEDICATIONS: 1. Uloric 220 mg a day. 2. Neurontin 100 mg q.h.s. 3. Potassium 10 mEq b.i.d. 4. Lipitor 10 mg p.o. daily. 5. Calcitriol 0.5 mcg p.o. on Tuesday. 6. Sensipar 30 mg Tuesday, Tuesday, Tuesday. 7. DuoNeb b.i.d. 8. Renvela 800 mg p.o. daily. 9. Lofibra 54 mg p.o. daily. 10.ProAmatine 10 mg p.o. daily. 11.Plavix 75 mg p.o. daily. 12.Drisdol 50,000 units p.o. Tuesday. 13.Iron 325 p.o. daily. 14.Nitrostat 0.4 sublingual q.5 p.r.n. 15.Torsemide 10 mg p.o. daily. 16.Aspirin 81 mg p.o. daily. 17.Omnicef 10 mg p.o. b.i.d. 6 capsules. 18.Imodium 2 mg p.o. q.8h p.r.n., 10 capsules. 19.Lopressor 25 mg p.o. b.i.d. 20.Norvasc 5 mg p.o. daily. FOLLOWUP: Follow with chain saw operator in 10 days, follow Dr. Irizarry on 04/05/18. The patient to continue with peritoneal dialysis. MMODL / IJN: [id number] /
== END 2018-04-01 15:30 | disposition home or self-care (01) | DRG 177 ==
LOC: EC 19:11 → 3SCARD 20:48 → 3NMEDONC 04-01 00:50
PROVIDERS: ADMIT Hospitalist; ATTEND Hospitalist
DX: J15.6 Pneumonia due to other Gram-negative bacteria (principal); N18.6 End stage renal disease; I12.0 Hypertensive chronic kidney disease with stage 5 chronic kidney disease or end stage renal disease; K52.1 Toxic gastroenteritis and colitis; D63.8 Anemia in other chronic diseases classified elsewhere; E78.5 Hyperlipidemia, unspecified; F41.9 Anxiety disorder, unspecified; H91.90 Unspecified hearing loss, unspecified ear; Z97.4 Presence of external hearing-aid; I25.10 Atherosclerotic heart disease of native coronary artery without angina pectoris; I44.30 Unspecified atrioventricular block; K90.0 Celiac disease; M10.9 Gout, unspecified; M89.9 Disorder of bone, unspecified; T36.95XA Adverse effect of unspecified systemic antibiotic, initial encounter; Z79.02 Long term (current) use of antithrombotics/antiplatelets; Z79.82 Long term (current) use of aspirin; Z79.899 Other long term (current) drug therapy; Z82.49 Family history of ischemic heart disease and other diseases of the circulatory system; Z90.710 Acquired absence of both cervix and uterus; Z95.5 Presence of coronary angioplasty implant and graft; Z96.612 Presence of left artificial shoulder joint; Z96.643 Presence of artificial hip joint, bilateral; Z99.2 Dependence on renal dialysis; Z91.018 Allergy to other foods
CPT/HCPCS: 36415; 71046; 80048; 80053; 81001; 82550; 82553; 83605; 84484; 85025; 85610; 85730; 87040; 87070; 87086; 87205; 87324; 87502; 93005; 93306; 94640; 96365; 96366; 96367; 99285

== ENCOUNTER 2018-05-08 19:27 | Inpatient (IN) | payer MEDICARE, BC ==
[2018-05-08] MEDS ORDERED: SODIUM CHLORIDE 0.9% 1,000 ML IV STA (20:13)
--- NOTE | 2018-05-08 20:24 | ED ---
SOB HPI - General Chief Complaint: Shortness of Breath Stated Complaint: Cough Time Seen by Provider: 05/08/18 20:12 Source: patient, family, RN notes reviewed, old records reviewed Mode of arrival: wheelchair Limitations: no limitations - History of Present Illness Initial Comments: This is a 78-year-old female the ER for evaluation of weakness weakness nausea vomiting diarrhea anorexia increased fatigue not acting appropriately no travel history no sick contacts denies fever does have increased cough and congestion feels a prior episodes of pneumonia. MD Complaint: shortness of breath, cough -: week(s), month(s) Severity: moderate (Weakness) Severity scale (1-10): 7 Quality: other (Fatigue) Consistency: constant Improves With: nothing Worsens With: exertion, eating, movement Known History Of: recurrent pneumonia Context: recent URI Associated Symptoms: denies other symptoms - Related Data Home Medications Medication Instructions Recorded Confirmed Febuxostat [Uloric] 20 mg PO DAILY 01/20/16 05/08/18 Gabapentin [Neurontin] 100 mg PO HS 01/20/16 05/08/18 Potassium Chloride [K-Tab ER] 10 meq PO BID 01/20/16 05/08/18 Atorvastatin Calcium [Lipitor] 10 mg PO DAILY 09/12/17 05/08/18 Calcitriol 0.5 mcg PO MOTUWEFR 09/12/17 05/08/18 Cinacalcet [Sensipar] 30 mg PO MOWEFR 09/12/17 05/08/18 Ipratropium-Albuterol Nebulize 3 ml INHALATION RT-TID PRN 09/12/17 05/08/18 [Duoneb 0.5 mg-3 mg/3 ml Soln] Sevelamer [Renvela] 800 mg PO DAILY 09/12/17 05/08/18 Fenofibrate [Lofibra] 54 mg PO DAILY 01/25/18 05/08/18 Midodrine HCl [ProAmatine] 10 mg PO DAILY 01/25/18 05/08/18 Ergocalciferol (Vitamin D2) 50,000 unit PO WE 03/28/18 05/08/18 [Drisdol] Ferrous Sulfate [Iron (65 MG 325 mg PO DAILY 03/28/18 05/08/18 Elemental)] Nitroglycerin Sl Tabs [Nitrostat] 0.4 mg SUBLINGUAL Q5M PRN 03/28/18 05/08/18 Aspirin 325 mg PO DAILY 05/08/18 05/08/18 Torsemide [Demadex] 20 mg PO DAILY 05/08/18 05/08/18 Allergies Allergy/AdvReac Type Severity Reaction Status Date / Time gluten Allergy celiac Verified 05/08/18 20:07 disease wheat Allergy CELIAC Verified 05/08/18 20:07 DISEASE Review of Systems ROS Statement: Those systems with pertinent positive or pertinent negative responses have been documented in the HPI. ROS Other: All systems not noted in ROS Statement are negative. Past Medical History Past Medical History: Coronary Artery Disease (CAD), Dialysis, Hyperlipidemia, Hypertension, Renal Disease, Syncope Additional Past Medical History / Comment(s): ONE KIDNEY ONLY FUNCTIONING AT 11 % NOT SURE WHICH ONE/peritoneal dialysis one manual around 3-5pm and one cycle at night, anemia, celiac dx, L ear canal small-slightly [place], wears hearing aide in R ear. History of Any Multi-Drug Resistant Organisms: None Reported Past Surgical History: Appendectomy, Cholecystectomy, Heart Catheterization With Stent, Hysterectomy, Joint Replacement, Orthopedic Surgery Additional Past Surgical History / Comment(s): 04/02/16 PCI with stent, bilateral feet neuromas removed, L total shoulder, bilateral total knees, bilateral total hips with R side done twice, L myringotomy/tube, D&C, colonoscopy. Past Anesthesia/Blood Transfusion Reactions: Postoperative Nausea & Vomiting ( PONV) Additional Past Anesthesia/Blood Transfusion Reaction / Comment(s): PONV once with a hip surgery. Pt has received blood in the past and once in 1977 she had a transfusion reaction with a fever and was packed in ice. Date of Last Stent Placement:: 03/27/16 Past Psychological History: No Psychological Hx Reported Smoking Status: Never smoker Past Alcohol Use History: None Reported Past Drug Use History: None Reported - Past Family History Mother Family Medical History: Myocardial Infarction (ID) Additional Family Medical History / Comment(s): LIVED TO BE AGE 93 Father Family Medical History: CVA/TIA Additional Family Medical History / Comment(s): AT AGE 52 FROM CEREBRAL HEMORRhAGE General Exam Limitations: no limitations General appearance: alert, in no apparent distress Head exam: Present: atraumatic, normocephalic, normal inspection Eye exam: Present: normal appearance, PERRL, EOMI. Absent: scleral icterus, conjunctival injection, periorbital swelling ENT exam: Present: normal exam, mucous membranes moist Neck exam: Present: normal inspection. Absent: tenderness, meningismus, lymphadenopathy Respiratory exam: Present: normal lung sounds bilaterally. Absent: respiratory distress, wheezes, rales, rhonchi, stridor Cardiovascular Exam: Present: regular rate, normal rhythm, normal heart sounds. Absent: systolic murmur, diastolic murmur, rubs, gallop, clicks GI/Abdominal exam: Present: soft, normal bowel sounds. Absent: distended, tenderness, guarding, rebound, rigid Extremities exam: Present: normal inspection, full ROM, normal capillary refill. Absent: tenderness, pedal edema, joint swelling, calf tenderness Back exam: Present: normal inspection Neurological exam: Present: alert, oriented X3, CN II-XII intact Psychiatric exam: Present: normal affect, normal mood Skin exam: Present: warm, dry, intact, normal color. Absent: rash Course Vital Signs 05/08/18 05/08/18 05/08/18 19:51 20:30 21:30 Temperature 98.2 F Pulse Rate 110 H 96 98 Respiratory 24 25 H 22 Rate Blood Pressure 92/65 129/79 141/83 O2 Sat by Pulse 100 100 98 Oximetry 05/08/18 05/08/18 23:18 23:23 Temperature Pulse Rate 92 94 Respiratory Rate Blood Pressure O2 Sat by Pulse Oximetry - Reevaluation(s) Reevaluation #1: 05/08/18 22:51 Medical record is reviewed Reevaluation #2: 05/08/18 22:51 Patient is without symptomatically improvement here in the ER Medical Decision Making - Medical Decision Making 78 female the ER with weakness and anorexia, lactic acidosis and severe dehydration, will not for rehydration and further evaluation and management. - Lab Data Result diagrams: 05/08/18 20:30 05/08/18 20:17 Lab Results 05/08/18 05/08/18 05/08/18 Range/Units 20:17 20:17 20:17 WBC (3.8-10.6) k/uL RBC (3.80-5.40) m/uL Hgb (11.4-16.0) gm/dL Hct (34.0-46.0) % MCV (80.0-100.0) fL MCH (25.0-35.0) pg MCHC (31.0-37.0) g/dL RDW (11.5-15.5) % Plt Count (150-450) k/uL Neutrophils % % Lymphocytes % % Monocytes % % Eosinophils % % Basophils % % Neutrophils # (1.3-7.7) k/uL Lymphocytes # (1.0-4.8) k/uL Monocytes # (0-1.0) k/uL Eosinophils # (0-0.7) k/uL Basophils # (0-0.2) k/uL PT 10.7 (9.0-12.0) sec INR 1.0 (<1.2) APTT 18.9 L (22.0-30.0) sec Sodium 134 L (137-145) mmol/L Potassium 3.7 (3.5-5.1) mmol/L Chloride 93 L (98-107) mmol/L Carbon Dioxide 27 (22-30) mmol/L Anion Gap 14 mmol/L BUN 20 H (7-17) mg/dL Creatinine 7.53 H* (0.52-1.04) mg/dL Est GFR (CKD-EPI)AfAm 5 (>60 ml/min/1.73 sqM) Est GFR (CKD-EPI)NonAf 5 (>60 ml/min/1.73 sqM) Glucose 124 H (74-99) mg/dL Plasma Lactic Acid Raghu (0.7-2.0) mmol/L Calcium 10.2 (8.4-10.2) mg/dL Phosphorus 3.6 (2.5-4.5) mg/dL Magnesium 1.6 (1.6-2.3) mg/dL Total Bilirubin 0.8 (0.2-1.3) mg/dL AST 46 H (14-36) U/L ALT 31 (9-52) U/L Alkaline Phosphatase 48 (38-126) U/L Total Creatine Kinase 36 (30-135) U/L CK-MB (CK-2) 0.5 (0.0-2.4) ng/mL CK-MB (CK-2) Rel Index 1.4 Troponin I 0.033 (0.000-0.034) ng/mL Total Protein 7.2 (6.3-8.2) g/dL Albumin 3.8 (3.5-5.0) g/dL Urine Color Urine Appearance (Clear) Urine pH (5.0-8.0) Ur Specific [place] (1.001-1.035) Urine Protein (Negative) Urine Glucose (UA) (Negative) Urine Ketones (Negative) Urine Blood (Negative) Urine Nitrite (Negative) Urine Bilirubin (Negative) Urine Urobilinogen (<2.0) mg/dL Ur Leukocyte Esterase (Negative) Urine RBC (0-5) /hpf Urine WBC (0-5) /hpf 05/08/18 05/08/18 05/08/18 Range/Units 20:17 20:30 22:35 WBC 8.6 (3.8-10.6) k/uL RBC 3.94 (3.80-5.40) m/uL Hgb 12.3 (11.4-16.0) gm/dL Hct 37.5 (34.0-46.0) % MCV 95.3 (80.0-100.0) fL MCH 31.3 (25.0-35.0) pg MCHC 32.8 (31.0-37.0) g/dL RDW 14.3 (11.5-15.5) % Plt Count 260 (150-450) k/uL Neutrophils % 83 % Lymphocytes % 9 % Monocytes % 6 % Eosinophils % 1 % Basophils % 0 % Neutrophils # 7.1 (1.3-7.7) k/uL Lymphocytes # 0.8 L (1.0-4.8) k/uL Monocytes # 0.5 (0-1.0) k/uL Eosinophils # 0.1 (0-0.7) k/uL Basophils # 0.0 (0-0.2) k/uL PT (9.0-12.0) sec INR (<1.2) APTT (22.0-30.0) sec Sodium (137-145) mmol/L Potassium (3.5-5.1) mmol/L Chloride (98-107) mmol/L Carbon Dioxide (22-30) mmol/L Anion Gap mmol/L BUN (7-17) mg/dL Creatinine (0.52-1.04) mg/dL Est GFR (CKD-EPI)AfAm (>60 ml/min/1.73 sqM) Est GFR (CKD-EPI)NonAf (>60 ml/min/1.73 sqM) Glucose (74-99) mg/dL Plasma Lactic Acid Raghu 4.1 H* (0.7-2.0) mmol/L Calcium (8.4-10.2) mg/dL Phosphorus (2.5-4.5) mg/dL Magnesium (1.6-2.3) mg/dL Total Bilirubin (0.2-1.3) mg/dL AST (14-36) U/L ALT (9-52) U/L Alkaline Phosphatase (38-126) U/L Total Creatine Kinase (30-135) U/L CK-MB (CK-2) (0.0-2.4) ng/mL CK-MB (CK-2) Rel Index Troponin I (0.000-0.034) ng/mL Total Protein (6.3-8.2) g/dL Albumin (3.5-5.0) g/dL Urine Color Yellow Urine Appearance Clear (Clear) Urine pH 6.5 (5.0-8.0) Ur Specific [place] 1.007 (1.001-1.035) Urine Protein 2+ H (Negative) Urine Glucose (UA) Negative (Negative) Urine Ketones Negative (Negative) Urine Blood Negative (Negative) Urine Nitrite Negative (Negative) Urine Bilirubin Negative (Negative) Urine Urobilinogen <2.0 (<2.0) mg/dL Ur Leukocyte Esterase Trace H (Negative) Urine RBC 1 (0-5) /hpf Urine WBC 2 (0-5) /hpf - EKG Data -: EKG Interpreted by Me (EKG shows sinus rhythm rate of 95, SC 20, QRS 74, QTc 437) - Radiology Data Radiology results: report reviewed (Chest x-rays negative for pneumonia), image reviewed Disposition Clinical Impression: ESRD (end stage renal disease), Weakness, URI (upper respiratory infection), Anorexia, Lactic acidosis Disposition: ADMITTED IP TO THIS HOSP Condition: Fair Is patient prescribed a controlled substance at d/c from ED?: No
[2018-05-08 20:43] LABS: Prothrombin Time 10.7 sec (9.0-12.0)
[2018-05-08 20:46] LABS: Albumin 3.8 g/dL (3.5-5.0); Calcium 10.2 mg/dL (8.4-10.2); Magnesium 1.6 mg/dL (1.6-2.3); Phosphorus 3.6 mg/dL (2.5-4.5); Potassium 3.7 mmol/L (3.5-5.1); Total Bilirubin 0.8 mg/dL (0.2-1.3); Total Protein 7.2 g/dL (6.3-8.2)
[2018-05-08 21:00] LABS: Creatine Kinase MB 0.5 ng/mL (0.0-2.4); Troponin I 0.033 ng/mL (0.000-0.034)
[2018-05-08 21:01] LABS: Partial Thromboplastin Time 18.9 sec (22.0-30.0)
[2018-05-08 21:04] LABS: Basophils % (A) 0 %; Eosinophils # (A) 0.1 k/uL (0-0.7); Eosinophils % (A) 1 %; HCT 37.5 % (34.0-46.0); HGB 12.3 gm/dL (11.4-16.0); Lymphocytes # (A) 0.8 k/uL (1.0-4.8); Lymphocytes % (A) 9 %; MCH 31.3 pg (25.0-35.0); MCHC 32.8 g/dL (31.0-37.0); MCV 95.3 fL (80.0-100.0); Mean Platelet Volume 7.9; Monocytes # (A) 0.5 k/uL (0-1.0); Monocytes % (A) 6 %; Neutrophils # (A) 7.1 k/uL (1.3-7.7); Neutrophils % (A) 83 %; Platelet Count 260 k/uL (150-450); RBC 3.94 m/uL (3.80-5.40); RDW 14.3 % (11.5-15.5); WBC 8.6 k/uL (3.8-10.6)
--- NOTE | 2018-05-08 21:04 | XR ---
EXAMINATION TYPE: XR chest 2V DATE OF EXAM: 05/08/2018 COMPARISON: 03/29/2018 HISTORY: Shortness of breath TECHNIQUE: Frontal and lateral views of the chest are obtained. FINDINGS: Scattered senescent parenchymal changes noted. Hyperinflation compatible with COPD. No evidence for infiltrate. No evidence for atelectasis. Heart size is stable. Mediastinal structures are stable and grossly unremarkable. No evidence for hilar prominence. Degenerative changes dorsal spine. IMPRESSION: 1. No evidence for acute pulmonary disease.
[2018-05-08] MEDS ORDERED: SODIUM CHLORIDE 0.9% 1,000 ML IV ONE (22:53)
[2018-05-08 22:54] LABS: Appearance,Urine Clear (Clear); Bilirubin,Urine Negative (Negative); Blood,Urine Negative (Negative); Color,Urine Yellow; Glucose,Urine (UA) Negative (Negative); Ketones,Urine Negative (Negative); Leukocyte Esterase,Urine Trace (Negative); Nitrite,Urine Negative (Negative); PH, Urine 6.5 (5.0-8.0); Protein,Urine 2+ (Negative); RBC,Urine 1 /hpf (0-5); Specific Gravity,Urine 1.007 (1.001-1.035); Urobilinogen,Urine <2.0 mg/dL (<2.0); WBC,Urine 2 /hpf (0-5)
[2018-05-08] MEDS ORDERED: PNEUMONIA PROTOCOL UTILIZED 1 EACH MISC PO PRN (22:55)
[2018-05-08] MEDS ORDERED: IPRATROPIUM-ALBUTEROL 3 ML NEB INHALATION STA (22:55)
[2018-05-08] MEDS ORDERED: AZITHROMYCIN 500 MG in SODIUM CHLORIDE 0.9% 250 ML IVPB ONE (23:30)
[2018-05-08] MEDS: SODIUM CHLORIDE 0.9% 1,000 ML IV SCH (23:49)
--- NOTE | 2018-05-09 08:12 | XR ---
EXAMINATION TYPE: XR chest 2V DATE OF EXAM: 05/09/2018 COMPARISON: Prior chest x-ray 05/08/2018 HISTORY: Cough and congestion, pneumonia TECHNIQUE: Frontal and lateral views of the chest are obtained. FINDINGS: Question some minimal basilar stranding. There is no pleural effusion or pneumothorax seen. The cardiac silhouette size is within normal limits. Suspect some coronary artery calcification or stent. The osseous structures are remarkable for postop change in the left shoulder, sclerotic densi ty overlies the proximal right humerus, arthropathy present in the right acromioclavicular joint. Aor ta is dense. IMPRESSION: There is likely minimal basilar atelectasis or scarring. Coronary artery disease.
[2018-05-09] MEDS: ENOXAPARIN 40 MG/0.4 ML SYRINGE SQ SCH (08:19)
[2018-05-09] MEDS: IPRATROPIUM-ALBUTEROL 3 ML NEB INHALATION SCH ×4 (09:04→21:04)
--- NOTE | 2018-05-09 11:31 | P.NPCON ---
History of Present Illness - Reason for Consult end stage renal disease - History of Present Illness 78-year-old female brought to the hospital by the daughter because of not feeling well. No history of peritonitis or abdominal pain. She is getting progressively weaker with decreased appetite. No nausea vomiting or diarrhea. No fevers chills or Rigers. Last dialysis was last night. She does cycler at home. She is on peritoneal dialysis for the last 2 years. Review of Systems Constitutional: Reports as per HPI Past Medical History Past Medical History: Coronary Artery Disease (CAD), Dialysis, Hyperlipidemia, Hypertension, Renal Disease, Syncope Additional Past Medical History / Comment(s): ONE KIDNEY ONLY FUNCTIONING AT 11 % NOT SURE WHICH ONE/peritoneal dialysis one manual around 3-5pm and one cycle at night, anemia, celiac dx, L ear canal small-slightly [place], wears hearing aide in R ear. History of Any Multi-Drug Resistant Organisms: None Reported Past Surgical History: Appendectomy, Cholecystectomy, Heart Catheterization With Stent, Hysterectomy, Joint Replacement, Orthopedic Surgery Additional Past Surgical History / Comment(s): 04/02/16 PCI with stent, bilateral feet neuromas removed, L total shoulder, bilateral total knees, bilateral total hips with R side done twice, L myringotomy/tube, D&C, colonoscopy. Past Anesthesia/Blood Transfusion Reactions: Postoperative Nausea & Vomiting ( PONV) Additional Past Anesthesia/Blood Transfusion Reaction / Comment(s): PONV once with a hip surgery. Pt has received blood in the past and once in 1977 she had a transfusion reaction with a fever and was packed in ice. Date of Last Stent Placement:: 03/27/16 Past Psychological History: No Psychological Hx Reported Smoking Status: Never smoker Past Alcohol Use History: None Reported Past Drug Use History: None Reported - Past Family History Mother Family Medical History: Myocardial Infarction (OR) Additional Family Medical History / Comment(s): LIVED TO BE AGE 93 Father Family Medical History: CVA/TIA Additional Family Medical History / Comment(s): AT AGE 52 FROM CEREBRAL HEMORRhAGE Medications and Allergies Home Medications Medication Instructions Recorded Confirmed Type Febuxostat [Uloric] 20 mg PO DAILY 01/20/16 05/08/18 History Gabapentin [Neurontin] 100 mg PO HS 01/20/16 05/08/18 History Potassium Chloride [K-Tab ER] 10 meq PO BID 01/20/16 05/08/18 History Atorvastatin Calcium [Lipitor] 10 mg PO DAILY 09/12/17 05/08/18 History Calcitriol 0.5 mcg PO MOTUWEFR 09/12/17 05/08/18 History Cinacalcet [Sensipar] 30 mg PO MOWEFR 09/12/17 05/08/18 History Ipratropium-Albuterol Nebulize 3 ml INHALATION RT-TID PRN 09/12/17 05/08/18 History [Duoneb 0.5 mg-3 mg/3 ml Soln] Sevelamer [Renvela] 800 mg PO DAILY 09/12/17 05/08/18 History Fenofibrate [Lofibra] 54 mg PO DAILY 01/25/18 05/08/18 History Midodrine HCl [ProAmatine] 10 mg PO DAILY 01/25/18 05/08/18 History Ergocalciferol (Vitamin D2) 50,000 unit PO WE 03/28/18 05/08/18 History [Drisdol] Ferrous Sulfate [Iron (65 MG 325 mg PO DAILY 03/28/18 05/08/18 History Elemental)] Nitroglycerin Sl Tabs [Nitrostat] 0.4 mg SUBLINGUAL Q5M PRN 03/28/18 05/08/18 History Aspirin 325 mg PO DAILY 05/08/18 05/08/18 History Torsemide [Demadex] 20 mg PO DAILY 05/08/18 05/08/18 History Allergies Allergy/AdvReac Type Severity Reaction Status Date / Time gluten Allergy celiac Verified 05/09/18 05:01 disease wheat Allergy CELIAC Verified 05/09/18 05:01 DISEASE Physical Exam Vitals: Vital Signs Temp Pulse Pulse Resp BP BP Pulse Ox 05/09/18 09:16 100 05/09/18 09:04 100 05/09/18 07:00 98.2 F 95 16 122/71 99 05/09/18 00:19 99 05/09/18 00:16 97.8 F 05/09/18 00:00 151/95 05/08/18 23:23 94 05/08/18 23:18 92 05/08/18 23:11 97.8 F 106 H 16 142/72 99 05/08/18 23:00 102 H 18 123/75 99 05/08/18 22:00 101 H 23 129/75 99 05/08/18 21:30 98 22 141/83 98 05/08/18 20:30 96 25 H 129/79 100 05/08/18 19:51 98.2 F 110 H 24 92/65 100 Intake and Output 05/08/18 05/09/18 05/09/18 22:59 06:59 14:59 Intake Total 200 120 Balance 200 120 Intake: Intake, IV Titration 200 Amount Sodium Chloride 0.9% 1, 200 000 ml @ 20 mls/hr IV . Q24H [facility] Rx#:[id number] Oral 120 Other: # Bowel Movements 1 Weight 70.307 kg No acute distress S1 S2 heard Lungs clear No edema Results - Lab Results Most recent lab results Calcium 10.2 mg/dL (8.4-10.2) 05/08/18 20:17 Phosphorus 3.6 mg/dL (2.5-4.5) 05/08/18 20:17 Magnesium 1.6 mg/dL (1.6-2.3) 05/08/18 20:17 05/08/18 20:30 05/08/18 20:17 Assessment and Plan Assessment: #1 ESRD on CCPD for the last 2 years under the care of Dr. Powell #2 generalized weakness #3 anemia with ESRD #4 metabolic bone disease with ESRD #5 hypertension with ESRD Plan: #1 plan CAPD with 1.5% dialysate 2000 ML's every 6 exchanges. #2 currently on antibiotics for suspected pneumonia #3 ESRD medications #4 supportive care
[2018-05-09] MEDS: MIDODRINE 5 MG TAB PO SCH ×2 (11:52→17:46)
[2018-05-09] MEDS ORDERED: NITROGLYCERIN SL TABS 0.4 MG TAB SUBLINGUAL PRN (12:12)
[2018-05-09] MEDS ORDERED: IPRATROPIUM-ALBUTEROL 3 ML NEB INHALATION PRN (12:12)
[2018-05-09] MEDS ORDERED: SEVELAMER 800 MG TAB PO SCH (12:30)
[2018-05-09] MEDS: ATORVASTATIN 10 MG TAB PO SCH (14:14)
[2018-05-09] MEDS: FENOFIBRATE 54 MG TAB PO SCH (14:14)
[2018-05-09] MEDS: SEVELAMER 800 MG TAB PO SCH (14:14)
[2018-05-09] MEDS ORDERED: MAGNESIUM HYDROXIDE 2,400 MG/10 ML CUP PO PRN (16:39)
[2018-05-09] MEDS ORDERED: ONDANSETRON 4 MG/2 ML VIAL IVP PRN (16:39)
[2018-05-09] MEDS ORDERED: NALOXONE 0.4 MG/ML 1 ML VIAL IV PRN (16:39)
[2018-05-09] MEDS ORDERED: CALCIUM CARBONATE 500 MG CHEWABLE PO PRN (16:39)
[2018-05-09] MEDS ORDERED: LACTULOSE 20 GM/30 ML CUP PO PRN (16:39)
[2018-05-09] MEDS ORDERED: ACETAMINOPHEN TAB 325 MG TAB PO PRN (16:39)
[2018-05-09] MEDS ORDERED: MELATONIN 3 MG TABLET PO PRN (16:39)
[2018-05-09] MEDS ORDERED: ALPRAZolam 0.25 MG TAB PO PRN (16:39)
[2018-05-09] MEDS: DIALYSIS (PERIT 1.5%) 2,500 ML 30 G/2,000 ML BAG INTRAPERIT SCH (20:17)
[2018-05-09] MEDS ORDERED: AZITHROMYCIN 500 MG TAB PO SCH (21:00)
[2018-05-09] MEDS: GABAPENTIN 100 MG CAP PO SCH (23:51)
[2018-05-10] MEDS: SODIUM CHLORIDE 0.9% 1,000 ML IV SCH ×2 (01:24→22:52)
[2018-05-10] MEDS: DIALYSIS (PERIT 1.5%) 2,500 ML 30 G/2,000 ML BAG INTRAPERIT SCH ×4 (02:57→21:40)
--- NOTE | 2018-05-10 05:21 | HP ---
HISTORY AND PHYSICAL DATE OF ADMISSION: 05/08/2018 DATE OF SERVICE: 05/09/2018 PRESENTING COMPLAINT: Weak and tired. HISTORY OF PRESENTING COMPLAINT: This is a pleasant 78-year-old patient of Dr. Irizarry. Chronic stable medical conditions include end-stage kidney disease on peritoneal dialysis, hypertension, hyperlipidemia, celiac disease. Also had a coronary stent placed a few months ago. Patient for about a week has just been feeling tired, run down, decreased appetite, some nausea. No obvious fevers. Minimal cough. No sputum. Just achiness. Also had some loose stools. Patient has been getting peritoneal dialysis. Accumulative of all these symptoms she decided to present to the ER. Empirically was put on antibiotics downstairs for questionable pneumonia. The patient has had no fever and no white count otherwise. REVIEW OF SYSTEMS: CONSTITUTIONAL: Weak, tired, run down. HEENT: Decreased hearing in the right ear. RESPIRATORY: Minimal symptoms. CARDIOVASCULAR: None. GASTROINTESTINAL: As above. GENITOURINARY: None. MUSCULOSKELETAL: None. DERMATOLOGICAL: None. HEMATOLOGIC: None. LYMPHATICS: None. PSYCHIATRY: None. NEUROLOGICAL: None. PAST MEDICAL HISTORY: Past medical history of end-stage kidney disease on peritoneal dialysis, coronary artery disease with stent, hypertension, hyperlipidemia, celiac disease, hard of hearing with hearing aid in the right ear. PAST SURGICAL HISTORY: Appendectomy, cholecystectomy, cardiac cath with stent, hysterectomy, bilateral feet neuromas removed, left total shoulder, bilateral total knees, bilateral total hip with the right side done twice. SOCIAL HISTORY: Patient lives with her daughter, has a cane and a walker. No smoking. No alcohol. FAMILY HISTORY: Family history of myocardial infarction. HOME MEDICATIONS: 1. Nitrostat 0.4 sublingual q.5 p.r.n. 2. Vitamin D2, 50,000 units on Wednesdays. 3. Demadex 20 mg p.o. daily. 4. Renvela 800 mg p.o. daily. 5. Potassium 10 mEq b.i.d. 6. Aspirin 325 p.o. daily. 7. Midodrine 10 mg . 8. DuoNeb t.i.d. p.r.n. 9. Neurontin 100 mg at bedtime. 10.Iron 325 p.o. daily. 11.Lofibra 54 mg p.o. daily. 12.Uloric 20 mg p.o. daily. 13.Sensipar 30 mg Tuesday, Tuesday and Tuesday. 14.Calcitriol 0.5 mcg p.o. Tuesday, Tuesday, Tuesday, Tuesday. 15.Lipitor 10 mg a day. ALLERGIES: Allergies to GLUTEN and WHEAT. PHYSICAL EXAMINATION: On examination, vital signs on presentation: Temperature 98.2, pulse 110, respiration 24, blood pressure 92/65, pulse ox 100% on room air. GENERAL APPEARANCE: Average build, lying in bed, tired appearing. EYES: Pupils equal. Conjunctivae pale. HEENT: External appearance of nose and ears normal. Oral cavity normal. NECK: JVD unable to assess. Mass not palpable. RESPIRATORY: Effort normal. LUNGS: Slightly decreased breath sounds. CARDIOVASCULAR: First and second sounds normal. No edema. ABDOMEN: Soft, nontender. Liver and spleen not palpable. LYMPHATIC: No lymph node palpable in the neck or axillae. PSYCHIATRY: Alert and oriented x3. Mood and affect normal. NEUROLOGICAL: Pupils equal. Cranial nerves grossly intact. Power and sensation grossly intact. INVESTIGATIONS: White count 8.6, hemoglobin 12.3, potassium 3.7, BUN 20, creatinine 7.53. Lactic acid 4.1. Chest x-ray film personally reviewed by me does not show any obvious infiltrate. EKG shows poor R-wave progression, sinus rhythm. ASSESSMENT: 1. Possible acute viral systemic illness causing generalized weakness, nausea, muscle achiness. There has been no obvious fevers present. White count is normal. Patient's appetite is low. Patient also appears to be dehydrated with probably some inadequate CAPD causing a mixture of her symptoms. 2. End-stage kidney disease on peritoneal dialysis. 3. Coronary artery disease prior history of stent. 4. Hyperlipidemia. 5. Essential hypertension. 6. Chronic celiac disease. 7. Hearing aid in the right ear. PLAN: Will DC patient's antibiotics. The patient is given some fluids. Peritoneal dialysis will be coordinated by Nephrology. Care was discussed with the patient and family at the bedside. Lovenox for DVT prophylaxis. Lets see how the patient fares in the next 24 hours. MMODL / IJN: [id number] /
[2018-05-10] MEDS: IPRATROPIUM-ALBUTEROL 3 ML NEB INHALATION SCH ×4 (08:51→21:08)
[2018-05-10] MEDS: FOLIC ACID-VIT B COMPLEX-VIT C 1 CAP PO SCH (09:05)
[2018-05-10] MEDS: SEVELAMER 800 MG TAB PO SCH (09:05)
[2018-05-10] MEDS: ENOXAPARIN 40 MG/0.4 ML SYRINGE SQ SCH (09:05)
[2018-05-10] MEDS: FENOFIBRATE 54 MG TAB PO SCH (09:05)
[2018-05-10] MEDS: MIDODRINE 5 MG TAB PO SCH ×3 (09:06→17:30)
[2018-05-10] MEDS: ATORVASTATIN 10 MG TAB PO SCH (09:06)
--- NOTE | 2018-05-10 09:36 | P.PN ---
Subjective Patient is seen in follow-up for end-stage renal disease. Patient is maintained on peritoneal dialysis. Patient presented with generalized weakness and poor oral intake. Currently resting in bed. She is eager to go home. Oral intake gradually improving. No vomiting or diarrhea. Vital signs are stable. General: The patient appeared well nourished and normally developed. HEENT: Head exam is unremarkable. Neck is without jugular venous distension. LUNGS: Lungs are clear to auscultation and percussion. Breath sounds decreased. HEART: Rate and Rhythm are regular. First and second heart sounds normal. No murmurs, rubs or gallops. ABDOMEN: Abdominal exam reveals normal bowel sounds. Non-tender and non- distended. No evidence of peritonitis. EXTREMITITES: No clubbing, cyanosis, or edema. Objective - Vital Signs Vital signs: Vital Signs Temp 98.3 F 05/10/18 07:00 Pulse 100 05/10/18 09:03 Resp 14 05/10/18 07:00 BP 120/70 05/10/18 07:00 Pulse Ox 95 05/10/18 07:00 Intake & Output 05/09/18 05/10/18 05/10/18 18:59 06:59 18:59 Intake Total 456 700 Balance 456 700 Weight 73.5 kg Intake: Intake, IV Titration 160 Amount Sodium Chloride 0.9% 1, 160 000 ml @ 20 mls/hr IV . Q24H [facility] Rx#:[id number] Oral 456 540 Other: Voiding Method Bedside Commode Diaper # Voids 1 # Bowel Movements 1 - Labs CBC & Chem 7: 05/08/18 20:30 05/08/18 20:17 Labs: Microbiology - Last 24 Hours (Table) 05/08/18 20:17 Blood Culture - Preliminary Blood No Growth after 24 hours Assessment and Plan Plan: Assessment: 1. End-stage renal disease maintained on peritoneal dialysis. 2. Generalized debility. 3. Anemia of chronic kidney disease. Hemoglobin at goal. 4. Chronic kidney disease mineral bone disease maintained on Renvela. 5. Chronic hypotension maintained on midodrine. 6. Productive cough possibly due to URI. No evidence of sepsis. Plan: Maintain current PD exchanges. 2 L every 6 hours with 1.5% solution. Encourage oral intake.
--- NOTE | 2018-05-10 12:06 | XR ---
EXAMINATION TYPE: XR chest 2V DATE OF EXAM: 05/10/2018 COMPARISON: 05/09/2018 HISTORY: coughing with phlegm TECHNIQUE: Frontal and lateral views of the chest are obtained. FINDINGS: Scattered senescent parenchymal changes noted. Hyperinflation compatible with COPD. Vague Increased density left midlung zone as well as linear density left lung base. Developing infilt rate difficult to exclude. Correlate clinically and progress studies recommended. Heart size is stable. Mediastinal structures are stable and grossly unremarkable. No evidence for hilar prominence. Degenerative changes dorsal spine. IMPRESSION: 1. Vague Increased density left midlung zone as well as linear density left lung base. Developing inf iltrate difficult to exclude. Correlate clinically and progress studies recommended.
--- NOTE | 2018-05-10 14:28 | P.PN ---
Subjective This is a pleasant 78 years old female with past medical history of coronary artery disease, hyperlipidemia, hypertension, end-stage renal disease status post dialysis, syncope, anemia, celiac disease. Presents with decreased appetite because of persistent nausea and sometimes vomiting fourth one week and a half. She vomits about every 34 days. Also struggling with her eating habits because of her nausea. On admission patient was dehydrated with elevated lactic acid that comes to normal with IV hydration also she feels stronger. Nephrology team are following the patient. There was suspicion of pneumonia on admission. We're going to repeat chest x-ray. CONSTITUTIONAL: No fever, no malaise, no fatigue. HEENT: No recent visual problems or hearing problems. Denied any sore throat. CARDIOVASCULAR: No orthopnea, PND, no palpitations, no syncope. PULMONARY: No shortness of breath, no cough, no hemoptysis. GASTROINTESTINAL: Normoactive bowel sounds. NEUROLOGICAL: No headaches, no weakness, no numbness. HEMATOLOGICAL: Denies any bleeding or petechiae. GENITOURINARY: Denies any burning micturition, frequency, or urgency. MUSCULOSKELETAL/RHEUMATOLOGICAL: Denies any joint pain, swelling, or any muscle pain. ENDOCRINE: Denies any polyuria or polydipsia. Medication with dosages reviewed and include: Tylenol, albuterol, Xanax, Lipitor , Tums, Lovenox, fenofibrate, Neurontin, lactulose, milk of magnesia, melatonin , medodrine, Nephrocaps, Zofran, Nitrostat, seveLamer, and Protonix. Objective - Vital Signs Vital signs: Vital Signs Temp 98.3 F 05/10/18 10:10 Pulse 100 05/10/18 12:27 Resp 14 05/10/18 10:10 BP 120/70 05/10/18 10:10 Pulse Ox 95 05/10/18 10:10 Intake & Output 05/09/18 05/10/18 05/10/18 18:59 06:59 18:59 Intake Total 456 700 240 Balance 456 700 240 Weight 73.5 kg 73.5 kg Intake: Intake, IV Titration 160 Amount Sodium Chloride 0.9% 1, 160 000 ml @ 20 mls/hr IV . Q24H [facility] Rx#:[id number] Oral 456 540 240 Other: Voiding Method Bedside Commode Bedside Commode Diaper Diaper # Voids 1 # Bowel Movements 1 - Exam CONSTITUTIONAL: No fever, no malaise, no fatigue. HEENT: No recent visual problems or hearing problems. Denied any sore throat. CARDIOVASCULAR: No orthopnea, PND, no palpitations, no syncope. PULMONARY: No shortness of breath, no cough, no hemoptysis. GASTROINTESTINAL: No diarrhea, no nausea, no vomiting, no abdominal pain. Normoactive bowel sounds. NEUROLOGICAL: No headaches, no weakness, no numbness. HEMATOLOGICAL: Denies any bleeding or petechiae. GENITOURINARY: Denies any burning micturition, frequency, or urgency. MUSCULOSKELETAL/RHEUMATOLOGICAL: Denies any joint pain, swelling, or any muscle pain. ENDOCRINE: Denies any polyuria or polydipsia. - Labs CBC & Chem 7: 05/08/18 20:30 05/08/18 20:17 Labs: Microbiology - Last 24 Hours (Table) 05/08/18 20:17 Blood Culture - Preliminary Blood No Growth after 24 hours Assessment and Plan Assessment: Persistent nausea and vomiting with decreased eating Dehydration, resolved High Lactic acid on admission, resolved End-stage renal disease on peritoneal dialysis History of essential hypertension History of hyperlipidemia Plan: This is a pleasant 78 years old female who presents because of persistent nausea and vomiting. GI team has been consulted. Continue with peritoneal dialysis as per nephrology recommendation. We will add Protonix. Labs and medication were reviewed.. Continue same treatment. Continue with symptomatic treatment. Resume home medication. Monitor lytes and vitals. DVT and GI prophylaxis. Further recommendations of the clinical course of the patient DVT prophylaxis: Subcutaneous Lovenox GI Prophylaxis: Protonix PT/OT: Pending Prognosis is guarded
[2018-05-10] MEDS: PANTOPRAZOLE 40 MG/10 ML VIAL IVP SCH (15:41)
[2018-05-10] MEDS ORDERED: FAMOTIDINE 20 MG/2 ML VIAL IV SCH (21:00)
[2018-05-10 22:14] LABS: Glucose,Whole Blood 89 mg/dL (75-99)
[2018-05-10] MEDS: GABAPENTIN 100 MG CAP PO SCH (22:51)
--- NOTE | 2018-05-10 23:35 | P.CONS ---
History of Present Illness - Reason for Consult Consult date: 05/10/18 Nausea, decreased oral intake Requesting physician: Enoch E Sheet - Chief Complaint Weakness - History of Present Illness The patient is a 78-year-old female with multiple medical comorbidities including end-stage renal disease on peritoneal dialysis, hypertension, dyslipidemia, celiac disease as well as coronary artery disease who presented with complaints of weakness, and nausea. The patient reports proximal with 6 weeks of nausea. She reports that the nausea will calm and go, and that it is worse with coffee. She reports decreased appetite over approximately 3 months where she will eat a small portion of her food, and then stop eating due to a lack of appetite. She denies any prior history of upper endoscopy or ulcers in the past. She believes she has lost approximately 15 pounds over this time. She reports 1 episode of loose stool prior to presentation however this is resolved. She believes her last colonoscopy was proximally 10 years ago. She denies any hematemesis, hematochezia or melena. Review of Systems REVIEW OF SYSTEMS: CARDIO: Denies any chest pain or palpitations. PULMONARY: Denies any shortness of breath or wheezing. GENITOURINARY: No dysuria or hematuria, the patient is on peritoneal dialysis and reports taking a small amount of urine at baseline, however at this time she is reporting no urine output today. MUSCULOSKELETAL: No focal weakness however patient reports being overall weak and tired. SKIN: Denies any new rashes or lesions, jaundice or pallor. PSYCHIATRIC: Denies any depression or anxiety. NEUROLOGY: Denies headache, denies any new focal deficits. EARS: No tinnitus, discharge or new hearing loss. NOSE: No discharge or congestion. EYES: No pain in eyes or change in vision. CONSTITUTIONAL: 15 pounds of recent weight loss. No fever, chills, night sweats. Past Medical History Past Medical History: Coronary Artery Disease (CAD), Dialysis, Hyperlipidemia, Hypertension, Renal Disease, Syncope Additional Past Medical History / Comment(s): ONE KIDNEY ONLY FUNCTIONING AT 11 % NOT SURE WHICH ONE/peritoneal dialysis one manual around 3-5pm and one cycle at night, anemia, celiac dx, L ear canal small-slightly [place], wears hearing aide in R ear. History of Any Multi-Drug Resistant Organisms: None Reported Past Surgical History: Appendectomy, Cholecystectomy, Heart Catheterization With Stent, Hysterectomy, Joint Replacement, Orthopedic Surgery Additional Past Surgical History / Comment(s): 04/02/16 PCI with stent, bilateral feet neuromas removed, L total shoulder, bilateral total knees, bilateral total hips with R side done twice, L myringotomy/tube, D&C, colonoscopy. Past Anesthesia/Blood Transfusion Reactions: Postoperative Nausea & Vomiting ( PONV) Additional Past Anesthesia/Blood Transfusion Reaction / Comm: PONV once with a hip surgery. Pt has received blood in the past and once in 1977 she had a transfusion reaction with a fever and was packed in ice. Date of Last Stent Placement:: 03/27/16 Past Psychological History: No Psychological Hx Reported Smoking Status: Never smoker Past Alcohol Use History: None Reported Past Drug Use History: None Reported - Past Family History Mother Family Medical History: Myocardial Infarction ([place]) Additional Family Medical History / Comment(s): LIVED TO BE AGE 93 Father Family Medical History: CVA/TIA Additional Family Medical History / Comment(s): AT AGE 52 FROM CEREBRAL HEMORRhAGE Medications and Allergies Home Medications Medication Instructions Recorded Confirmed Type Febuxostat [Uloric] 20 mg PO DAILY 01/20/16 05/08/18 History Gabapentin [Neurontin] 100 mg PO HS 01/20/16 05/08/18 History Potassium Chloride [K-Tab ER] 10 meq PO BID 01/20/16 05/08/18 History Atorvastatin Calcium [Lipitor] 10 mg PO DAILY 09/12/17 05/08/18 History Calcitriol 0.5 mcg PO MOTUWEFR 09/12/17 05/08/18 History Cinacalcet [Sensipar] 30 mg PO MOWEFR 09/12/17 05/08/18 History Ipratropium-Albuterol Nebulize 3 ml INHALATION RT-TID PRN 09/12/17 05/08/18 History [Duoneb 0.5 mg-3 mg/3 ml Soln] Sevelamer [Renvela] 800 mg PO DAILY 09/12/17 05/08/18 History Fenofibrate [Lofibra] 54 mg PO DAILY 01/25/18 05/08/18 History Midodrine HCl [ProAmatine] 10 mg PO DAILY 01/25/18 05/08/18 History Ergocalciferol (Vitamin D2) 50,000 unit PO WE 03/28/18 05/08/18 History [Drisdol] Ferrous Sulfate [Iron (65 MG 325 mg PO DAILY 03/28/18 05/08/18 History Elemental)] Nitroglycerin Sl Tabs [Nitrostat] 0.4 mg SUBLINGUAL Q5M PRN 03/28/18 05/08/18 History Aspirin 325 mg PO DAILY 05/08/18 05/08/18 History Torsemide [Demadex] 20 mg PO DAILY 05/08/18 05/08/18 History Allergies Allergy/AdvReac Type Severity Reaction Status Date / Time gluten Allergy celiac Verified 05/09/18 05:01 disease wheat Allergy CELIAC Verified 05/09/18 05:01 DISEASE Physical Exam Vitals: Vital Signs Temp Pulse Pulse Resp BP BP Pulse Ox 05/10/18 22:06 19 05/10/18 21:28 96.5 F L 104 H 28 H 156/74 93 L 05/10/18 21:23 96 05/10/18 21:10 96 05/10/18 17:02 96 05/10/18 16:50 92 05/10/18 16:00 14 05/10/18 15:41 98.8 F 95 14 127/62 05/10/18 15:00 98.2 F 96 15 118/70 95 05/10/18 12:27 100 05/10/18 12:15 96 05/10/18 10:10 98.3 F 100 14 120/70 95 05/10/18 09:03 100 05/10/18 09:00 14 05/10/18 08:51 100 05/10/18 07:00 98.3 F 100 14 120/70 95 05/10/18 03:01 98.7 F 104 H 18 117/57 94 L 05/10/18 00:19 18 05/09/18 23:30 99.2 F 114 H 18 133/69 91 L Intake and Output 05/10/18 05/10/18 05/11/18 14:59 22:59 06:59 Intake Total 640 300 Balance 640 300 Intake: Oral 640 300 Other: Voiding Method Bedside Commode Bedside Commode Diaper Diaper # Voids 1 Weight 73.5 kg 75.5 kg On physical examination, patient appears comfortable in no apparent distress. HEAD: Normocephalic, atraumatic. EYES: No scleral icterus. No conjunctival injection. MOUTH: No lesions, tongue midline. NECK: Trachea midline, no gross abnormalities. CHEST: Clear to auscultation with no wheezing or rhonchi appreciated. HEART: Regular rate and rhythm. ABDOMEN: Soft, obese. Bowel sounds are positive. No organomegaly. No guarding or rigidity. EXTREMITIES: No pedal edema. SKIN: No rashes, no jaundice. NEUROLOGIC: Alert and oriented x3. No focal deficits. Results CBC & Chem 7: 05/08/18 20:30 05/08/18 20:17 Labs: Microbiology - Last 24 Hours (Table) 05/09/18 21:08 Gram Stain - Preliminary Sputum 05/08/18 20:17 Blood Culture - Preliminary Blood No Growth after 24 hours Chest x-ray: report reviewed Assessment and Plan (1) Nausea Narrative/Plan: Patient reporting proximally 6 weeks of nausea which is intermittent with associated decreased oral intake and weight loss. Unknown etiology, this may represent functional disease, dyspepsia, esophagitis/gastritis or other etiology. Current Visit: Yes Status: Acute Code(s): R11.0 - NAUSEA SNOMED Code(s): 090242409 (2) Decreased oral intake Current Visit: Yes Status: Acute Code(s): R63.8 - OTHER SYMPTOMS AND SIGNS CONCERNING FOOD AND FLUID INTAKE SNOMED Code(s): 114024162 (3) ESRD (end stage renal disease) Current Visit: Yes Status: Acute Code(s): N18.6 - END STAGE RENAL DISEASE SNOMED Code(s): 36237475 Plan: Supportive care Diet as tolerated Nothing by mouth after midnight Agree with addition of Protonix daily Continue Zofran as needed Plan for EGD tomorrow Thank you for allowing us to participate in the care of this patient we will continue to follow
[2018-05-11] MEDS ORDERED: AMOXIC-POT CLAV 875-125MG 1 EACH TAB PO SCH (02:00)
[2018-05-11] MEDS: DIALYSIS (PERIT 1.5%) 2,500 ML 30 G/2,000 ML BAG INTRAPERIT SCH ×4 (03:44→22:20)
[2018-05-11 08:06] LABS: Basophils % (A) 0 %; Eosinophils # (A) 0.1 k/uL (0-0.7); Eosinophils % (A) 3 %; HCT 26.3 % (34.0-46.0); Lymphocytes # (A) 0.6 k/uL (1.0-4.8); Lymphocytes % (A) 14 %; MCH 31.5 pg (25.0-35.0); MCHC 32.7 g/dL (31.0-37.0); MCV 96.2 fL (80.0-100.0); Monocytes # (A) 0.3 k/uL (0-1.0); Monocytes % (A) 7 %; Neutrophils # (A) 2.9 k/uL (1.3-7.7); Neutrophils % (A) 74 %; Platelet Count 155 k/uL (150-450); RBC 2.73 m/uL (3.80-5.40); RDW 14.9 % (11.5-15.5); WBC 3.9 k/uL (3.8-10.6)
[2018-05-11] MEDS: ENOXAPARIN 30 MG/0.3 ML SYRINGE SQ SCH (08:07)
[2018-05-11 08:13] LABS: HGB 8.6 gm/dL (11.4-16.0)
[2018-05-11 08:17] LABS: Calcium 8.3 mg/dL (8.4-10.2); Potassium 3.3 mmol/L (3.5-5.1)
[2018-05-11] MEDS: IPRATROPIUM-ALBUTEROL 3 ML NEB INHALATION SCH ×4 (08:17→20:30)
[2018-05-11] MEDS: MIDODRINE 5 MG TAB PO SCH ×3 (08:48→17:25)
[2018-05-11] MEDS ORDERED: POTASSIUM CHLORIDE ER 20 MEQ TAB.ER PO STA (09:55)
--- NOTE | 2018-05-11 09:55 | P.PN ---
Subjective Patient is seen in follow-up for end-stage renal disease. Patient is maintained on peritoneal dialysis. Patient presented with generalized weakness and poor oral intake. Currently resting in bed. Oral intake gradually improving. No vomiting or diarrhea. Admits to cough. Vital signs are stable. General: The patient appeared well nourished and normally developed. HEENT: Head exam is unremarkable. Neck is without jugular venous distension. LUNGS: Lungs are clear to auscultation and percussion. Breath sounds decreased. HEART: Rate and Rhythm are regular. First and second heart sounds normal. No murmurs, rubs or gallops. ABDOMEN: Abdominal exam reveals normal bowel sounds. Non-tender and non- distended. No evidence of peritonitis. EXTREMITITES: No clubbing, cyanosis, or edema. Objective - Vital Signs Vital signs: Vital Signs Temp 99.1 F 05/11/18 09:10 Pulse 91 05/11/18 09:10 Resp 16 05/11/18 09:10 BP 122/66 05/11/18 09:10 Pulse Ox 91 L 05/11/18 09:10 Intake & Output 05/10/18 05/11/18 05/11/18 18:59 06:59 18:59 Intake Total 640 350 Balance 640 350 Weight 73.5 kg 75.5 kg Intake: Oral 640 350 Other: Voiding Method Bedside Commode Bedside Commode Bedside Commode Diaper Diaper Diaper # Voids 1 - Labs CBC & Chem 7: 05/11/18 07:33 05/11/18 07:33 Labs: Abnormal Lab Results - Last 24 Hours (Table) 05/11/18 05/11/18 Range/Units 07:33 07:33 RBC 2.73 L (3.80-5.40) m/uL Hgb 8.6 L D (11.4-16.0) gm/dL Hct 26.3 L (34.0-46.0) % Lymphocytes # 0.6 L (1.0-4.8) k/uL Sodium 133 L (137-145) mmol/L Potassium 3.3 L (3.5-5.1) mmol/L BUN 19 H (7-17) mg/dL Creatinine 7.58 H* (0.52-1.04) mg/dL Calcium 8.3 L (8.4-10.2) mg/dL Microbiology - Last 24 Hours (Table) 05/08/18 20:17 Blood Culture - Preliminary Blood No Growth after 48 hours 05/08/18 22:35 Urine Culture - Final Urine,Catheterized 05/09/18 21:08 Gram Stain - Preliminary Sputum Assessment and Plan Plan: Assessment: 1. End-stage renal disease maintained on peritoneal dialysis. 2. Generalized debility. 3. Anemia of chronic kidney disease. 4. Chronic kidney disease mineral bone disease maintained on Renvela. 5. Chronic hypotension maintained on midodrine. 6. Productive cough possibly due to URI. No evidence of sepsis. 7. Hypokalemia from PD losses and poor oral intake. 8. Nausea with decreased appetite and weight loss. Scheduled for EGD today. Plan: Maintain current PD exchanges. 2 L every 6 hours with 1.5% solution. Encourage oral intake. Replace potassium. 40 mEq today. Check iron studies. Add Aranesp.
[2018-05-11] MEDS ORDERED: LIDOCAINE 1% INJ 10MG/ML (20 ML MDV) ONE (11:23)
[2018-05-11] MEDS ORDERED: PROPOFOL 10 MG/ML 20 ML VIAL IV ONE (11:23)
[2018-05-11] MEDS ORDERED: SODIUM CHLORIDE 0.9% 500 ML IV ONE (11:25)
[2018-05-11] MEDS ORDERED: DARBEPOETIN ALFA 40 MCG/0.4 ML SYRINGE SQ SCH (12:00)
--- NOTE | 2018-05-11 12:00 | P.PCN ---
Date of Procedure: 05/11/18 Description of Procedure: BRIEF HISTORY: The patient is a 78-year-old female with multiple medical comorbidities including end-stage renal disease on peritoneal dialysis, hypertension, dyslipidemia, celiac disease as well as coronary artery disease who presented with complaints of weakness, and nausea. The patient reports proximal with 6 weeks of nausea. She reports that the nausea will calm and go, and that it is worse with coffee. She reports decreased appetite over approximately 3 months where she will eat a small portion of her food, and then stop eating due to a lack of appetite. She denies any prior history of upper endoscopy or ulcers in the past. She believes she has lost approximately 15 pounds over this time. She reports 1 episode of loose stool prior to presentation however this is resolved. She believes her last colonoscopy was proximally 10 years ago. She denies any hematemesis, hematochezia or melena.. PROCEDURE PERFORMED: Esophagogastroduodenoscopy with biopsy. PREOPERATIVE DIAGNOSIS: Intractable nausea, unintentional weight loss. ESTIMATED BLOOD LOSS: Minimal. IV sedation per anesthesia. PROCEDURE: After informed consent was obtained, the patient was brought into the endoscopy unit. IV sedation was administered by Anesthesia under continuous monitoring. Initially the Olympus GIF-190 video endoscope was inserted into the mouth. Esophagus intubated without any difficulty. It was gradually advanced into the stomach and duodenum and carefully examined. The bulb and the second part of the duodenum appeared normal except for mild scattered erythema suggestive of duodenitis which was biopsied. The scope at this time was withdrawn to the stomach, adequately insufflated with air, and upon careful examination, mucosa of the antrum, body, cardia and the fundus appeared normal. Mild scattered erythema in the antrum and body was noted with biopsies taken to rule out gastritis.The scope was then withdrawn into the esophagus. The GE junction was located at 38 cm from the incisorswith the Z line appearing irregular suggestive of short segment Fountain's with multiple biopsies taken. The esophagus otherwise appeared normal. There were no erosions or ulcerations seen and the patient tolerated the procedure well. IMPRESSION: 1. Mild gastritis, biopsied. 2. Mild duodenitis, biopsied. 3. Irregular Z-line, biopsied RECOMMENDATIONS: The findings of this examination were discussed with the patient. Continue Protonix daily. Await biopsies. Okay for diet. Zofran as needed.
[2018-05-11] MEDS: SEVELAMER 800 MG TAB PO SCH (12:35)
[2018-05-11] MEDS: PANTOPRAZOLE 40 MG/10 ML VIAL IVP SCH (12:36)
[2018-05-11] MEDS: FENOFIBRATE 54 MG TAB PO SCH (12:36)
[2018-05-11] MEDS: FOLIC ACID-VIT B COMPLEX-VIT C 1 CAP PO SCH (12:36)
[2018-05-11] MEDS: ATORVASTATIN 10 MG TAB PO SCH (12:36)
[2018-05-11 15:46] LABS: Iron Saturation 26.24 (12.00-45.00)
[2018-05-11] MEDS ORDERED: AMOXIC-POT CLAV 500-125 MG 1 EACH TAB PO SCH (21:00)
[2018-05-11] MEDS: AMOXIC-POT CLAV 875-125MG 1 EACH TAB PO SCH (21:22)
[2018-05-11] MEDS: GABAPENTIN 100 MG CAP PO SCH (21:22)
[2018-05-11] MEDS: SODIUM CHLORIDE 0.9% 1,000 ML IV SCH (23:46)
[2018-05-12] MEDS: DIALYSIS (PERIT 1.5%) 2,500 ML 30 G/2,000 ML BAG INTRAPERIT SCH ×3 (05:20→11:50)
[2018-05-12 07:23] LABS: Basophils % (A) 0 %; Eosinophils # (A) 0.2 k/uL (0-0.7); Eosinophils % (A) 4 %; HCT 26.5 % (34.0-46.0); HGB 8.7 gm/dL (11.4-16.0); Lymphocytes # (A) 0.5 k/uL (1.0-4.8); Lymphocytes % (A) 14 %; MCH 31.9 pg (25.0-35.0); MCHC 32.9 g/dL (31.0-37.0); MCV 96.8 fL (80.0-100.0); Mean Platelet Volume 7.1; Monocytes # (A) 0.2 k/uL (0-1.0); Monocytes % (A) 6 %; Neutrophils # (A) 2.6 k/uL (1.3-7.7); Neutrophils % (A) 75 %; Platelet Count 130 k/uL (150-450); RBC 2.74 m/uL (3.80-5.40); RDW 15.2 % (11.5-15.5); WBC 3.5 k/uL (3.8-10.6)
[2018-05-12 07:35] LABS: Calcium 8.3 mg/dL (8.4-10.2); Potassium 3.4 mmol/L (3.5-5.1)
[2018-05-12] MEDS: ATORVASTATIN 10 MG TAB PO SCH (08:54)
[2018-05-12] MEDS: MIDODRINE 5 MG TAB PO SCH ×2 (08:54→15:23)
[2018-05-12] MEDS: SEVELAMER 800 MG TAB PO SCH (08:55)
[2018-05-12] MEDS: AMOXIC-POT CLAV 875-125MG 1 EACH TAB PO SCH (08:55)
[2018-05-12] MEDS: PANTOPRAZOLE 40 MG/10 ML VIAL IVP SCH (08:55)
[2018-05-12] MEDS: FENOFIBRATE 54 MG TAB PO SCH (08:55)
[2018-05-12] MEDS: ENOXAPARIN 30 MG/0.3 ML SYRINGE SQ SCH (08:55)
[2018-05-12] MEDS: FOLIC ACID-VIT B COMPLEX-VIT C 1 CAP PO SCH (08:55)
[2018-05-12] MEDS ORDERED: POTASSIUM CHLORIDE ER 20 MEQ TAB.ER PO STA (09:13)
--- NOTE | 2018-05-12 09:15 | P.PN ---
Subjective Patient is seen in follow-up for end-stage renal disease. Patient is maintained on peritoneal dialysis. Patient presented with generalized weakness and poor oral intake. Currently resting in bed. Oral intake gradually improving. No vomiting or diarrhea. Patient had EGD yesterday which revealed mild gastritis and duodenitis. Vital signs are stable. General: The patient appeared well nourished and normally developed. HEENT: Head exam is unremarkable. Neck is without jugular venous distension. LUNGS: Lungs are clear to auscultation and percussion. Breath sounds decreased. HEART: Rate and Rhythm are regular. First and second heart sounds normal. No murmurs, rubs or gallops. ABDOMEN: Abdominal exam reveals normal bowel sounds. Non-tender and non- distended. No evidence of peritonitis. EXTREMITITES: No clubbing, cyanosis, or edema. Objective - Vital Signs Vital signs: Vital Signs Temp 99.3 F 05/12/18 07:00 Pulse 94 05/12/18 07:00 Resp 16 05/12/18 07:00 BP 117/60 05/12/18 07:00 Pulse Ox 93 L 05/12/18 07:00 Intake & Output 05/11/18 05/12/18 05/12/18 18:59 06:59 18:59 Intake Total 510 540 Balance 510 540 Weight 76 kg Intake: IV 100 Intake, IV Titration 160 Amount Sodium Chloride 0.9% 1, 160 000 ml @ 20 mls/hr IV . Q24H [facility] Rx#:[id number] Oral 50 540 Other 200 Other: Voiding Method Bedside Commode Bedside Commode Diaper Diaper # Voids 2 1 # Bowel Movements 1 - Labs CBC & Chem 7: 05/12/18 06:40 05/12/18 06:40 Labs: Abnormal Lab Results - Last 24 Hours (Table) 05/11/18 05/12/18 05/12/18 Range/Units 07:33 06:40 06:40 WBC 3.5 L (3.8-10.6) k/uL RBC 2.74 L (3.80-5.40) m/uL Hgb 8.7 L (11.4-16.0) gm/dL Hct 26.5 L (34.0-46.0) % Plt Count 130 L (150-450) k/uL Lymphocytes # 0.5 L (1.0-4.8) k/uL Sodium 136 L (137-145) mmol/L Potassium 3.4 L (3.5-5.1) mmol/L BUN 20 H (7-17) mg/dL Creatinine 7.29 H* (0.52-1.04) mg/dL Calcium 8.3 L (8.4-10.2) mg/dL TIBC 221 L (228-460) ug/dL Ferritin 928.7 H (10.0-291.0) ng/mL Microbiology - Last 24 Hours (Table) 05/09/18 21:08 Gram Stain - Final Sputum Sputum Culture - Final 05/08/18 20:17 Blood Culture - Preliminary Blood No Growth after 72 hours Assessment and Plan Plan: Assessment: 1. End-stage renal disease maintained on peritoneal dialysis. 2. Generalized debility. 3. Anemia of chronic kidney disease. Iron replete. 4. Chronic kidney disease mineral bone disease maintained on Renvela. 5. Chronic hypotension maintained on midodrine. 6. Productive cough possibly due to URI. No evidence of sepsis. 7. Hypokalemia from PD losses and poor oral intake. 8. Nausea with decreased appetite and weight loss. EGD revealed mild gastritis and duodenitis. Plan: Maintain current PD exchanges. 2 L every 6 hours with 1.5% solution. Encourage oral intake. Replace potassium. 40 mEq today. Maintain Aranesp. Stable for discharge from nephrology standpoint.
[2018-05-12] MEDS: IPRATROPIUM-ALBUTEROL 3 ML NEB INHALATION SCH ×3 (10:14→15:57)
[2018-05-12 15:21] VITALS: BP 119/58; TEMP 97.2
[2018-05-12 16:00] VITALS: RESP 16
[2018-05-12 16:09] VITALS: PULSE 89
--- NOTE | 2018-05-12 18:13 | P.DS ---
Providers Date of admission: 05/08/18 22:55 Attending physician: Patricio Deleon Consults: 05/08/18 22:55 Consult Physician Routine Consulting Provider: Conchis Powell Consult Reason/Comments: known Do you want consulting provider notified?: Yes 05/10/18 10:48 Consult Physician Urgent Consulting Provider: Nina Lee Consult Reason/Comments: N/V and decreased eating Do you want consulting provider notified?: Yes Primary care physician: Tamir Bernardojuan alberto Hospital Course: Persistent nausea and vomiting with decreased eating, improving Patient status EGD: Mild gastritis and duodenitis Dehydration, resolved Suspicion of pneumonia based on chest x-ray however patient with no leukocytosis and no fever. Discharge and a small course of oral antibiotic High Lactic acid on admission, resolved End-stage renal disease on peritoneal dialysis History of essential hypertension History of hyperlipidemia Hospital course: This is a pleasant 78 years old female with past medical history of coronary artery disease, hyperlipidemia, hypertension, end-stage renal disease status post dialysis, syncope, anemia, celiac disease. Presents with decreased appetite because of persistent nausea and sometimes vomiting. She vomits about every 3-4 days. No more vomiting the hospital. Also struggling with her eating habits because of her nausea. On admission patient was dehydrated with elevated lactic acid that comes to normal with IV hydration also she feels stronger. Nephrology team evaluated the patient. Has been coughing some phlegm. However she denies chest pain or dyspnea Patient chest x-ray showing vague increased density left mid lung zone as well as linear densities left mid lung bases, developing infiltrate difficulty exit fluid. However patient has no fever or leukocytosis. She was started on Augmentin for a few more days upon discharge. Patient have some soft bowel movement with no abdominal pain however she is tolerating oral diet well, with no nausea vomiting. Physical therapist recommended home with home healthcare which was provided. Patient herself did not want one more day for further monitoring and she wants to go home and follow-up as an outpatient. Patient was cleared for discharge by GI and nephrology team Problems and management plan was discussed with the patient and she verbalized understanding and acceptance Patient is found stable and can be discharged home and guarded prognosis however she needs follow-up as an outpatient. Patient agrees with the appointments and the timing and states she'll follow-up. Patient also instructed with to follow-up with her PCP in one week and she agrees. physical exam Gen.: Patient alert awake and oriented X 3, NOT IN DISTRESS CVS: s1-s2, RRR, no murmur CHEST:bilateral CTA, no wheezing or crepitation Abdomen: Soft, no tenderness, no distention, positive bowel sounds Extremities: No leg edema or induration Time spent more than 35 minutes Patient Condition at Discharge: Fair Plan - Discharge Summary Discharge Rx Participant: Yes New Discharge Prescriptions: New Acetaminophen Tab [Tylenol] 650 mg PO Q6HR PRN tab PRN Reason: Mild Pain Or Fever > 100.5 Darbepoetin Yevgeniy [Aranesp] 40 mcg SQ Q7D syringe Folic Acid-Vit B Complex-Vit C [Nephrocaps] 1 each PO DAILY #14 cap Midodrine [ProAmatine] 10 mg PO AC-TID #180 tab Pantoprazole Sodium [Protonix] 40 mg PO DAILY #30 tablet. Amoxlisa-Pot Clav 875-125Mg [Augmentin 875-125] 1 tab PO BID 4 Days #8 tab Continue Gabapentin [Neurontin] 100 mg PO HS Febuxostat [Uloric] 20 mg PO DAILY Cinacalcet [Sensipar] 30 mg PO MOWEFR Sevelamer [Renvela] 800 mg PO DAILY Ipratropium-Albuterol Nebulize [Duoneb 0.5 mg-3 mg/3 ml Soln] 3 ml INHALATION RT-TID PRN PRN Reason: Shortness Of Breath Calcitriol 0.5 mcg PO MOTUWEFR Atorvastatin Calcium [Lipitor] 10 mg PO DAILY Fenofibrate [Lofibra] 54 mg PO DAILY Midodrine HCl [ProAmatine] 10 mg PO DAILY Nitroglycerin Sl Tabs [Nitrostat] 0.4 mg SUBLINGUAL Q5M PRN PRN Reason: Chest Pain Ferrous Sulfate [Iron (65 MG Elemental)] 325 mg PO DAILY Ergocalciferol (Vitamin D2) [Drisdol] 50,000 unit PO WE Torsemide [Demadex] 20 mg PO DAILY Aspirin 325 mg PO DAILY Discontinued Potassium Chloride [K-Tab ER] 10 meq PO BID Discharge Medication List Febuxostat [Uloric] 20 mg PO DAILY 01/20/16 [History] Gabapentin [Neurontin] 100 mg PO HS 01/20/16 [History] Atorvastatin Calcium [Lipitor] 10 mg PO DAILY 09/12/17 [History] Calcitriol 0.5 mcg PO MOTUWEFR 09/12/17 [History] Cinacalcet [Sensipar] 30 mg PO MOWEFR 09/12/17 [History] Ipratropium-Albuterol Nebulize [Duoneb 0.5 mg-3 mg/3 ml Soln] 3 ml INHALATION RT -TID PRN 09/12/17 [History] Sevelamer [Renvela] 800 mg PO DAILY 09/12/17 [History] Fenofibrate [Lofibra] 54 mg PO DAILY 01/25/18 [History] Midodrine HCl [ProAmatine] 10 mg PO DAILY 01/25/18 [History] Ergocalciferol (Vitamin D2) [Drisdol] 50,000 unit PO WE 03/28/18 [History] Ferrous Sulfate [Iron (65 MG Elemental)] 325 mg PO DAILY 03/28/18 [History] Nitroglycerin Sl Tabs [Nitrostat] 0.4 mg SUBLINGUAL Q5M PRN 03/28/18 [History] Aspirin 325 mg PO DAILY 05/08/18 [History] Torsemide [Demadex] 20 mg PO DAILY 05/08/18 [History] Acetaminophen Tab [Tylenol] 650 mg PO Q6HR PRN tab 05/12/18 [Rx] Amoxic-Pot Clav 875-125Mg [Augmentin 875-125] 1 tab PO BID 4 Days #8 tab [Rx] Darbepoetin Yevgeniy [Aranesp] 40 mcg SQ Q7D syringe 05/12/18 [Rx] Folic Acid-Vit B Complex-Vit C [Nephrocaps] 1 each PO DAILY #14 cap 05/12/18 [Rx ] Midodrine [ProAmatine] 10 mg PO AC-TID #180 tab 05/12/18 [Rx] Pantoprazole Sodium [Protonix] 40 mg PO DAILY #30 tablet. 05/12/18 [Rx] Follow up Appointment(s)/Referral(s): Conchis Powell MD [STAFF PHYSICIAN] - 05/22/18 (you have appointment on 05/22/18 as you informed the medical team) Doni Irizarry MD [Primary Care Provider] - 1-2 days (office will call with appointment time) [facility], [NON-STAFF] - As Needed Alec Hu MD [STAFF PHYSICIAN] - 05/23/18 12:00 pm (follow up the biopsy result with your precision grinder external please ) Patient Instructions/Handouts: Pneumonia (DC) Activity/Diet/Wound Care/Special Instructions: renal diet activity is limited till you follow up with your doctor Discharge Disposition: HOME WITH HOME HEALTH SERVICES
== END 2018-05-12 16:48 | disposition home health service (06) | DRG 640 ==
LOC: EC 19:27 → 4SSUR 22:55
PROVIDERS: ADMIT Hospitalist; ATTEND Hospitalist
PROC: 3E1M39Z Irrigation of Peritoneal Cavity using Dialysate, Percutaneous Approach (ICD-10-PCS; 2018-05-09)
PROC: 0DB78ZX Excision of Stomach, Pylorus, Via Natural or Artificial Opening Endoscopic, Diagnostic (ICD-10-PCS; 2018-05-11)
PROC: 0DB48ZX Excision of Esophagogastric Junction, Via Natural or Artificial Opening Endoscopic, Diagnostic (ICD-10-PCS; 2018-05-11)
PROC: 0DB98ZX Excision of Duodenum, Via Natural or Artificial Opening Endoscopic, Diagnostic (ICD-10-PCS; principal; 2018-05-11 09:00)
DX: E86.0 Dehydration (principal); J18.9 Pneumonia, unspecified organism; N18.6 End stage renal disease; I12.0 Hypertensive chronic kidney disease with stage 5 chronic kidney disease or end stage renal disease; K29.70 Gastritis, unspecified, without bleeding; E87.2 Acidosis; K29.80 Duodenitis without bleeding; K90.0 Celiac disease; D63.1 Anemia in chronic kidney disease; E78.5 Hyperlipidemia, unspecified; E87.6 Hypokalemia; I25.10 Atherosclerotic heart disease of native coronary artery without angina pectoris; I95.89 Other hypotension; Z79.82 Long term (current) use of aspirin; Z79.899 Other long term (current) drug therapy; Z82.49 Family history of ischemic heart disease and other diseases of the circulatory system; Z87.01 Personal history of pneumonia (recurrent); Z90.710 Acquired absence of both cervix and uterus; Z95.5 Presence of coronary angioplasty implant and graft; Z99.2 Dependence on renal dialysis; B97.89 Other viral agents as the cause of diseases classified elsewhere; H91.90 Unspecified hearing loss, unspecified ear; Z96.653 Presence of artificial knee joint, bilateral; Z96.643 Presence of artificial hip joint, bilateral; Z96.612 Presence of left artificial shoulder joint; Z90.49 Acquired absence of other specified parts of digestive tract; E83.9 Disorder of mineral metabolism, unspecified; Z82.3 Family history of stroke
CPT/HCPCS: 36415; 43239; 71046; 80048; 80053; 81001; 82550; 82553; 82728; 83540; 83550; 83605; 83735; 84100; 84484; 85025; 85610; 85730; 87040; 87070; 87086; 87205; 87502; 88305; 88342; 93005; 94640; 94760; 96361; 96365; 99285